=== PATIENT | male | born 1990 | race Caucasian/White ===

== ENCOUNTER 2020-07-22 14:36 | Emergency (ER) | payer SELFPAY ==
[2020-07-22 15:24] VITALS: BP 130/84; PULSE 113; RESP 14; TEMP 36.7; O2SAT 99; BMI 24.2
--- NOTE | 2020-07-22 15:34 | ED_ITS ---
HPI - Wound/Laceration General: Chief Complaint: Wound/Laceration Stated Complaint: laceration to finger on right hand Time Seen by Provider: 07/22/20 15:31 Source: patient Mode of arrival: ambulatory Limitations: no limitations History of Present Illness: HPI narrative: Patient was using a knife and cut the proximal dorsal phalanx of the fifth digit on the right hand. Patient comes in for care of the injury. Incident occurred just prior to arrival. Patient reports tetanus is up-to-date. Patient denies any problems. Review of Systems General: Reports: 10 or more systems reviewed and unremarkable except in HPI and below Skin/Breast: Reports: other (Laceration right middle finger.) Physical Exam Const: COMMON NORMALS: no acute distress and patient oriented x3 GENERAL APPEARANCE: cooperative HENMT: COMMON NORMALS: normocephalic and Normal external nose present HEAD & SCALP: normal to inspection and normocephalic NOSE: Normal external nose present Eye: GENERAL EYE: appearance normal, both eyes and all related structures Neck/C-Spine: COMMON NORMALS: full ROM Chest: COMMONS NORMALS: normal inspection of the chest Resp: COMMON NORMALS: normal respiratory effort EFFORT & INSPECTION: Yes able to speak in complete sentences Cardio: COMMON NORMALS: regular rate and regular rhythm RATE: regular rate RHYTHM: regular rhythm GI: COMMON NORMALS: non-tender Extremity: COMMON NORMALS: normal to inspection Neuro: COMMON NORMALS: patient oriented x3 and moves all extremities Psych: COMMON NORMALS: mental status grossly normal and cooperative Skin: NARRATIVE SKIN EXAM: 2 cm laceration to the proximal dorsal phalanx on the right hand of the fifth digit. Tendon function is normal. Distal cap refill is normal. Procedures Laceration Laceration 1: Site: hand Side (If applicable): right Size (cm): 2 Description: linear Depth: simple, single layer Local Anesthetic: lidocaine 1% Amount of anesthesia used (mL): 2 Pre-repair: wound explored Skin layer closed with: nylon Size (cm): 4-0 Number of sutures: 3 Technique: simple, interrupted and horizontal mattress Course Vital Signs: Vital signs: Vital Signs Temperature 98.0 F 07/22/20 15:24 Pulse Rate 113 H 07/22/20 15:24 Respiratory Rate 14 07/22/20 15:24 Blood Pressure 130/84 07/22/20 15:24 Pulse Oximetry 99 07/22/20 15:24 MDM - Wound/Laceration MDM Narrative: Medical decision making narrative: 30-year-old male patient comes in for injury to the right hand, he sustained a laceration to the proximal dorsal little finger. Patient has normal range of motion of the hand without any sign of tendon injury. Cap refill is normal sensation is normal. Differential diagnosis includes laceration, tendon injury, foreign body. No foreign body was noted in the wound, wound was closed with 3 stitches, patient tolerated procedure well. Reviewed post procedure care and need for follow-up or return. Patient reported understanding. Discharge Plan Discharge Patient Disposition: Home Clinical Impression: Finger laceration Qualifiers: Encounter type: initial encounter Finger: little finger Damage to nail status: without damage Foreign body presence: without foreign body Laterality: right Qualified Code(s): S61.216A - Laceration without foreign body of right little finger without damage to nail, initial encounter Condition: Stable Discharge Orders: Discharge ED (Routine); Ordered 07/22/20 Ordered By: Jay Caro Discharge Diet: Usual diet Discharge Activity: Increase activity as tolerated Patient Instructions: Suture Care (ED) Activity Restrictions/Additional Instructions: Keep wound clean and dry. Sutures out in 7 days. Activity as tolerated. Follow-up with primary care as needed. Return to the emergency department for new concerns. Coding Level of Care Code ED Lacquer Mixer for Maryan Wilson Exam Comprehensive
[2020-07-22] MEDS: lidocaine 1% INJ 20 mL INJECTION (16:02)
[2020-07-22 16:03] VITALS: BP 133/80; PULSE 106; RESP 14; O2SAT 97
== END 2020-07-22 16:03 | disposition home or self-care (01) ==
PROVIDERS: Emergency Provider Nurse Practitioner Family
DX: S61.216A Laceration without foreign body of right little finger without damage to nail, initial encounter (principal); W26.0XXA Contact with knife, initial encounter
CPT/HCPCS: 12001; 12345; 99281

== ENCOUNTER 2021-09-20 09:41 | Inpatient (IN) | payer MEDICAID, SELFPAY ==
[2021-09-20] VITALS (10 sets, daily range): BP systolic 110–155; BP diastolic 70–103; PULSE 88–108; RESP 15–20; TEMP 36.5–36.8; O2SAT 95–100; BMI 30.9
--- NOTE | 2021-09-20 09:56 | W.ED.ABDPA2 ---
HPI - Abdominal Pain General: Chief Complaint: Abdominal Pain Stated Complaint: abdominal pain, right side Time Seen by Provider: 09/20/21 09:44 Source: patient Mode of arrival: ambulatory Limitations: no limitations History of Present Illness: 31-year-old male presents emergency room complaining abdominal pain. About 5 to 7 days ago he had some blood in his urine he has right-sided abdominal pain radiating down into his groin and testicle became markedly worse overnight. Now is rating it 10 of 10 he is uncomfortable just lying in bed. He had spasmodic-like pain radiating into the groin. No previous abdominal surgeries he has had difficulty with voiding completely. No fever sweats or chills no recent trauma or fall. MD elicited complaint: abdominal pain Pertinent past history: kidney stones Onset (ago): week(s) Pain Consistency: intermittent and colicky Location: R flank Severity: severe Quality: stabbing Radiation: suprapubic and other (Right groin and testicle) Exacerbating factors: nothing Relieving factors: nothing Associated Symptoms: Reports chills, fever(s), hematuria and nausea; Denies anorexia, belching, bloating, change in bowel habits, change in stool character, coffee ground emesis, constipation, GI cramping, diarrhea, dyspepsia, dysuria, excessive flatus, heartburn, hematochezia, hematemesis, fecal incontinence, loose stools, melena, poor appetite, syncope and vomiting Review of Systems Const: Reports: fever(s), chills and body aches Card: Denies: syncope Resp: Denies: dyspnea, productive cough or non-productive cough GI: Reports: abdominal pain and nausea; Denies: vomiting, hematemesis, coffee ground emesis, heartburn, diarrhea, constipation, bloating, GI cramping, belching, excessive flatus, fecal incontinence, change in bowel habits, change in stool character, hematochezia or melena : Reports: flank pain, difficulty urinating, urinary frequency and hematuria; Denies: dysuria Skin/Breast: Denies: rash or pruritus PFS ED PFSH: Medical History Back pain Nephrolithiasis Surgical History No pertinent past surgical history Social History Smoking and tobacco status: current every day smoker Physical Exam Const: GENERAL APPEARANCE: cooperative and other (Severe right flank pain) ORIENTATION/CONSCIOUSNESS: Yes awake, Yes oriented to person, Yes oriented to place and Yes oriented to time HENMT: COMMON NORMALS: normocephalic, atraumatic and hearing grossly normal bilaterally HEAD & SCALP: normocephalic and atraumatic Neck/C-Spine: COMMON NORMALS: full ROM, no lymphadenopathy, supple and no JVD Lymph: LYMPHATIC: no lymphadenopathy noted and no lymphedema noted Resp: COMMON NORMALS: normal respiratory effort, No retractions, No use of accessory muscles and clear to auscultation bilaterally AUSCULTATION: clear to auscultation bilaterally Cardio: COMMON NORMALS: no JVD, regular rate, regular rhythm and No murmurs present (Cardio) RATE: regular rate RHYTHM: regular rhythm GI: COMMON NORMALS: Soft to palpation and No hepatosplenomegaly present AUSCULTATION: Yes normoactive bowel sounds PALPATION: Yes Soft to palpation, No Tenderness to palpation present (GI), No Guarding due to palpation present (GI) and Yes No hepatosplenomegaly present : BLADDER/KIDNEY EXAM: Yes CVA tenderness on the right Back/Pelvis: GENERAL BACK: Yes CVA tenderness Extremity: COMMON NORMALS: normal to inspection, capillary refill normal, no clubbing, cyanosis or edema, no calf tenderness and no pedal edema Neuro: SENSORIUM/ORIENTATION: Yes oriented to person, Yes oriented to place and Yes oriented to time Skin: COMMON NORMALS: no rashes or lesions noted GENERAL SKIN EXAM: no rashes or lesions noted Course Vital Signs: Vital signs: Vital Signs Temperature 98.3 F 09/20/21 09:53 Pulse Rate 88 09/20/21 11:28 Respiratory Rate 18 09/20/21 11:35 Blood Pressure 136/92 09/20/21 11:28 Pulse Oximetry 96 09/20/21 11:28 MDM - Abdominal Pain Medical Decision Making CT negative the patient is tachycardic with significantly elevated white count and evidence of cystitis given his clinical presentation I believe he has pyelonephritis is given IV fluids and significant amount of morphine to subside his pain. There is no evidence of obstruction. Regards admit the patient for IV fluids pain control and IV antibiotics discussed with patient discussed with hospitalist and orders are written Medical Records I reviewed the patient's medical records. Lab Data I reviewed the patient's lab results. : 09/20/21 10:25 09/20/21 10:51 Labs/Radiology: Radiology Impressions Abdomen/Pelvis CT 09/20/21 10:31 IMPRESSION: No acute findings. Laboratory Results WBC 19.8 10^3/uL (4.0-10.0) H 09/20/21 10:25 RBC 5.00 10^6/uL (4.1-5.3) 09/20/21 10:25 Hgb 15.5 g/dL (11.7-16.6) 09/20/21 10:25 Hct 46.2 % (42.0-52.0) 09/20/21 10:25 MCV 92.4 fl (80-94) 09/20/21 10:25 MCH 31.0 pg (28.0-34.0) 09/20/21 10:25 MCHC 33.5 g/dL (30.0-36.0) 09/20/21 10:25 RDW 12.6 % (12.1-15.1) 09/20/21 10:25 Plt Count 370 10^3/cmm (130-400) 09/20/21 10:25 MPV 8.9 fL (7.4-10.4) 09/20/21 10:25 Neut % (Auto) 79.0 % 09/20/21 10:25 Lymph % (Auto) 11.4 % 09/20/21 10:25 Pender % (Auto) 7.5 % 09/20/21 10:25 Eos % (Auto) 1.3 % 09/20/21 10:25 Baso % (Auto) 0.4 % 09/20/21 10:25 Neut # (Auto) 15.62 10^3/uL (1.8-7.7) H 09/20/21 10:25 Lymph # (Auto) 2.3 10^3/uL (0.8-4.8) 09/20/21 10:25 Pender # (Auto) 1.5 10^3/uL (0.2-0.9) H 09/20/21 10:25 Eos # (Auto) 0.3 10^3/uL (0.0-0.8) 09/20/21 10:25 Baso # (Auto) 0.1 10^3/uL (0.0-0.1) 09/20/21 10:25 Nucleated RBC % (auto) 0 % 09/20/21 10:25 Nucleated RBCs # 0.0 /100WBC 09/20/21 10:25 Sodium 132 mmol/L (136-145) L 09/20/21 10:51 Potassium 4.0 mmol/L (3.5-5.1) 09/20/21 10:51 Chloride 96 mmol/L (98-107) L 09/20/21 10:51 Carbon Dioxide 27 mmol/L (22-29) 09/20/21 10:51 Anion Gap 13.0 (5-19) 09/20/21 10:51 BUN 14 mg/dL (6-20) 09/20/21 10:51 Creatinine 1.0 mg/dL (0.7-1.2) 09/20/21 10:51 GFR Calculation 86.6 mL/min (90-130) L 09/20/21 10:51 Glucose 107 mg/dL (65-115) 09/20/21 10:51 Calculated Osmolality 275 mOsm/kg (285-295) L 09/20/21 10:51 Calcium 9.7 mg/dL (8.5-10.5) 09/20/21 10:51 Total Bilirubin 0.4 mg/dL (0.15-1.2) 09/20/21 10:51 AST 22 U/L (0-40) 09/20/21 10:51 ALT 45 U/L (0-41) H 09/20/21 10:51 Alkaline Phosphatase 233 IU/L (40-130) H 09/20/21 10:51 Total Protein 7.7 g/dL (6.6-8.7) 09/20/21 10:51 Albumin 4.7 g/dL (3.5-5.2) 09/20/21 10:51 Globulin 3.0 g/dL (1.3-4.6) 09/20/21 10:51 Lipase 22 U/L (13-60) 09/20/21 10:51 Urine Color Yellow (Yellow) 09/20/21 10:15 Urine Appearance Cloudy (CLEAR) 09/20/21 10:15 Urine pH 8 (5-7) H 09/20/21 10:15 Ur Specific [place] 1.015 (1.005-1.030) 09/20/21 10:15 Urine Protein Neg (Negative) 09/20/21 10:15 Urine Glucose (UA) Norm (Normal) 09/20/21 10:15 Urine Ketones Negative (Negative) 09/20/21 10:15 Urine Blood 3+ (Negative) H 09/20/21 10:15 Urine Nitrate Negative (Negative) 09/20/21 10:15 Urine Bilirubin Neg (Negative) 09/20/21 10:15 Urine Urobilinogen Norm mg/dL (Negative) 09/20/21 10:15 Ur Leukocyte Esterase 2+ (Negative) H 09/20/21 10:15 Urine RBC 10-15 /hpf (0-2) H 09/20/21 10:15 Urine WBC 40-55 /hpf (0-5) H 09/20/21 10:15 Ur Squamous Epith Cells None /hpf (0-5) 09/20/21 10:15 Amorphous Sediment Not Reportable 09/20/21 10:15 Urine Bacteria 2+ /hpf (NONE) H 09/20/21 10:15 Discharge Plan Discharge Clinical Impression: Acute pyelonephritis Condition: Stable Prescriptions: No Action No Known Home Medications 0RF Coding Level of Care Code ED Affirmative Action Specialist for Chg Fwd Exam Comprehensive
--- NOTE | 2021-09-20 10:31 | CTR_ITS ---
PROCEDURE INFORMATION: Exam: CT Abdomen And Pelvis Without Contrast Exam date and time: 09/20/2021 11:01 AM Age: 31 years old Clinical indication: Abdominal pain; Flank; Right; Additional info: Flank pain TECHNIQUE: Imaging protocol: Computed tomography of the abdomen and pelvis without contrast. Radiation optimization: All CT scans at this facility use at least one of these dose optimization techniques: automated exposure control; mA and/or kV adjustment per patient size (includes targeted exams where dose is matched to clinical indication); or iterative reconstruction. COMPARISON: CT abdomen pelvis w con* [id number] 03/06/2019 3:04 PM RADIATION DOSE METRICS: Total DLP (mGy-cm): 852.37 FINDINGS: Liver: Normal. No mass. Gallbladder and bile ducts: Normal. No calcified stones. No ductal dilation. Pancreas: Normal. No ductal dilation. Spleen: Normal. No splenomegaly. Adrenal glands: Normal. No mass. Kidneys and ureters: Normal. No hydronephrosis. Stomach and bowel: Unremarkable. No obstruction. No mucosal thickening. Appendix: No evidence of appendicitis. Intraperitoneal space: Unremarkable. No free air. No significant fluid collection. Arteries: Unremarkable. No abdominal aortic aneurysm. Lymph nodes: Unremarkable. No enlarged lymph nodes. Urinary bladder: Unremarkable as visualized. Reproductive: Unremarkable as visualized. Bones/joints: Unremarkable. No acute fracture. Soft tissues: Unremarkable. CT/CT kidney stone [id number] IMPRESSION: No acute findings.
[2021-09-20 10:33] LABS: Basophils # 0.1 10^3/uL (0.0-0.1); Basophils % 0.4 %; Eosinophils # 0.3 10^3/uL (0.0-0.8); Eosinophils % 1.3 %; Hematocrit 46.2 % (42.0-52.0); Hemoglobin 15.5 g/dL (11.7-16.6); Lymphocytes # 2.3 10^3/uL (0.8-4.8); Lymphocytes % 11.4 %; Mean Corpuscular HGB Conc 33.5 g/dL (30.0-36.0); Mean Corpuscular Volume 92.4 fl (80-94); Mean Platelet Volume 8.9 fL (7.4-10.4); Monocytes # 1.5 10^3/uL (0.2-0.9); Monocytes % 7.5 %; Neutrophils # 15.62 10^3/uL (1.8-7.7); Nucleated Red Blood Cells % 0 %; Platelet Count 370 10^3/cmm (130-400); Red Cell Distribution Width 12.6 % (12.1-15.1); White Blood Count 19.8 10^3/uL (4.0-10.0)
[2021-09-20 10:36] LABS: Protein Urine Neg (Negative); Specific Gravity, Urine 1.015 (1.005-1.030); Urine Appearance Cloudy (CLEAR); Urine Color Yellow (Yellow); pH Urine 8 (5-7)
[2021-09-20 10:37] LABS: Glucose Urine UA Norm (Normal); Ketones Urine Negative (Negative)
[2021-09-20] MEDS: morphine 4 mg/mL SDV 1 mL 8 MG IVP (10:37)
[2021-09-20] MEDS: ondansetron 2 mg/ML SDV 2 mL 4 MG IVP (10:38)
[2021-09-20 10:39] LABS: Add Urine Microscopic? YES; Bilirubin Urine Neg (Negative); Blood Urine 3+ (Negative); Leukocyte Esterase Urine 2+ (Negative); Nitrate Urine Negative (Negative); Urobilinogen Urine Norm (Negative); WBC Urine 40-55 /hpf (0-5)
[2021-09-20 10:40] LABS: Add Urine Culture? Yes; Bacteria Urine 2+ /hpf
[2021-09-20] MEDS: lactated ringers 1,000 ML 999 ML IV ×3 (10:50→12:53)
[2021-09-20 11:19] LABS: Alanine Aminotransferase 45 U/L (0-41); Albumin Level 4.7 g/dL (3.5-5.2); Alkaline Phosphatase 233 IU/L (40-130); Aspartate Amino Transferase 22 U/L (0-40); Blood Urea Nitrogen 14 mg/dL (6-20); Calcium 9.7 mg/dL (8.5-10.5); Carbon Dioxide 27 mmol/L (22-29); Chloride 96 mmol/L (98-107); Glomerular Filtration Rate 86.6 mL/min (90-130); Glucose 107 mg/dL (65-115); Lipase 22 U/L (13-60); Osmolality Calculated 275 mOsm/kg (285-295); Sodium 132 mmol/L (136-145); Total Bilirubin 0.4 mg/dL (0.15-1.2); Total Protein 7.7 g/dL (6.6-8.7)
[2021-09-20] MEDS: morphine 4 mg/mL SDV 1 mL IVP (11:35)
[2021-09-20] MEDS: cefTRIAXone 1,000 MG in sodium chloride 0.9% (plus) 50 ML 100 MG IV (11:37)
--- NOTE | 2021-09-20 11:44 | PC.NURSE ---
Warmed blanket & extra pillow for comfort. LR & abx infusing.
[2021-09-20 12:31] LABS: Lactic Sepsis W/Reflex 1.4 mmol/L (0.5-2.2)
--- NOTE | 2021-09-20 12:44 | PC.NURSE ---
Clarified 2nd rocephin order from Dr. Mora. He does not want 2nd dose, but wants rocephin to start tomorrow.
--- NOTE | 2021-09-20 12:49 | PM.HP ---
Providers/Chief Complaint Admitting Physician: Harpreet Mora DO Chief Complaint: abdominal pain, right side History of Present Illness Alden Urena is a 31 year old male who presented to the ER with complaints on hematuria, worsening abdominal pain. Symptoms started 2 weeks ago with burning while urinating and with erection. He did have one episode of hematuria a couple days ago. Abdominal pain worsened over the last few days. He does endorse one episode of urethral discharge. Has a history of renal stones, but denies seeing one pass during this episode. He denies concerns for STI's. Denies BATISTA, change in vision, fever, chills, N/V/D or rash. He denies other medical conditions and reports taking no medications. Denies allergies to foods or medications. He is current ppd smoker, and uses EtOH daily. He has a history of IVD use, but denies use for the last 8 months since attending rehab. Review of Systems General: Reports: 10 or more systems reviewed and unremarkable except in HPI and below Const: Reports: other (Denies recent illness. ); Denies: fever(s) or chills Eyes: Denies: change in vision or eye discharge ENMT: Denies: throat pain or oral sores Card: Denies: chest pain or palpitations Resp: Denies: dyspnea, productive cough, non-productive cough or wheezing GI: Reports: abdominal pain and nausea; Denies: vomiting, diarrhea or constipation : Reports: dysuria and hematuria; Denies: urinary frequency Musc: Denies: joint pain or joint swelling Skin/Breast: Denies: rash or sores Neuro: Denies: headache(s), weakness in extremities or sensory changes Psych: Denies: anxiety or depression Endo: Denies: polyuria or polydipsia Axel/Lymph: Denies: easy bruising Medications/Allergies Home Medications Medication Instructions Recorded Confirmed Last Taken Type No Known Home Medications 09/20/21 09/20/21 Unknown History Allergies Allergy/AdvReac Type Severity Reaction Status Date / Time No Known Allergies Allergy Verified 03/25/21 13:52 PFSH Acute PFSH: Medical History Back pain Nephrolithiasis Surgical History No pertinent past surgical history Social History Smoking and tobacco status: current every day smoker Vitals/I&O/Wt Last Vital Signs Temp 98.3 F 09/20/21 09:53 Pulse 88 09/20/21 12:12 Resp 18 09/20/21 12:12 BP 145/103 09/20/21 12:12 Pulse Ox 95 09/20/21 12:12 Weight last 48 hrs Weight 180 lb Physical Exam Narrative: General: Cooperative patient in no apparent distress. Appears slightly lethargic. HEENT: Normocephalic, Atraumatic. External ears normal. Nasal passages patent without drainage. MMM. Neck is supple, non-tender. No LA palpated. Resp: LCTA. No respiratory distress, no use of accessory muscles. No wheezes, rales or rhonchi. Abd: Non-tender, Non-distended with normal bowel sounds. R-CVA tenderness noted. Extremities: No edema. MSK: Normal ROM in BUE's/LE's. Neuro: Alert and oriented x 3. CN II-XII grossly intact. No focal motor or sensory disturbances. Skin: No rash or lesions on exposed areas. Data : 09/20/21 10:25 09/20/21 10:51 Micro: Microbiology 09/20/21 12:05 Blood Culture - Preliminary Blood SPECIMEN COLLECTED A&P Assessment and plan (1) Acute pyelonephritis: Acute. - Admit to Med/Surg. - Leukocytosis of 19,000, UA positive for infection, CVA tenderness. Lactate normal. - CT negative for nephrolithiasis or hydronephrosis. - Received IVF bolus x 1. Continue IVF at 100/hr. - Rocephin x 1 dose in ER. Will continue daily. Can de-escalate/specify therapies when culture results available. - BCx, UCx pending. GCC to be obtained from this morning's urine collection. - IV, Oral pain meds. - q4 vitals. Up ad warren activity. - Regular diet. Status: Acute (2) Leukocytosis: Acute. - Due to acute infection. - Will repeat CBC in a.m. Status: Acute (3) Acute hyponatremia: Status: Acute (4) Hypochloremia: Acute. - Continue NS IVF's at this time. - Recheck labs in a.m. Status: Acute (5) Elevated LFTs: Acute. - Infection vs. Daily EtOH intake. - He denies ever having withdrawals. - Will monitor for signs of withdrawal and can add protocol as needed. Status: Acute (6) Nephrolithiasis: Chronic. - CT negative today for stone. - Will monitor for now. Can consult Urology if indicated. Status: Acute (7) Nicotine dependence, cigarettes, with unspecified nicotine-induced disorders: Chronic. - Discussion was held regarding the risks of tobacco use and the benefits of stopping. Therapies including nicotine replacement, counseling and medications were presented. - Can provide NRT if needed. Status: Acute Attestations Medical Necessity Statement*: Pateint expected to require at least 2 midnight stay for treatment of acute pyelonephritis and hyponatremia. Time Spent in Patient Care: 16 - 35 minutes (>than 50% of time spent in counselling and/or direct pt care on unit). Coding Level of Care Code Acute Audio Visual Equipment Rental Clerk for Maryan Wilson Diagnoses Acute pyelonephritis N10 Acute hyponatremia E87.1 Hypochloremia E87.8 Elevated LFTs R79.89 Leukocytosis D72.829 Nephrolithiasis N20.0 Nicotine dependence, cigarettes, with unspecified nicotine-induced disorders F17.219
[2021-09-20] MEDS: D5-NS 0.45% + KCL 20 mEq 20 MEQ/1,000 ML BAG 150 MEQ IV ×2 (14:13→21:05)
[2021-09-20] MEDS: HYDROcodone-acetaminophen 5-325 mg Tablet 1 TAB PO (19:27)
--- NOTE | 2021-09-20 19:43 | PC.NURSE ---
PATIENT REPORTED NEW ONSET OF SWELLING OF RIGHT TESTICLE. HOSPITALIST DR. BYRNE NOTIFIED AND ORDERED WARM COMPRESS BE APPLIED, AND SCROTAL ULTRASOUND WITH DOPPLER BE DONE.
--- NOTE | 2021-09-20 19:51 | USR_ITS ---
PROCEDURE INFORMATION: Exam: US Scrotum and Artery or Vein of the Abdominal and/or Reproductive Organs, Limited Scrotum Exam date and time: 09/20/2021 8:05 PM Age: 31 years old Clinical indication: Swelling, testicles or scrotum; Scrotum pain; Additional info: Right testicle swelling, with doppler TECHNIQUE: Imaging protocol: Real-time ultrasound of the scrotum. Real-time duplex ultrasound scan of the arterial or venous flow with monahan scale, color Doppler flow and spectral waveform analysis with image documentation. Limited Duplex exam focused of the scrotum. Duplex images required to evaluate for torsion and other vascular conditions. COMPARISON: 1. US Testicular [id number] 10/02/2016 4:[address] kidney stone [id number] 09/20/2021 11:01 AM FINDINGS: Right testicle: Right testicle measures 4.5 x 3.3 x 3.4 cm. Left testicle: Left testicle measures 4.8 x 2.5 x 3.2 cm. Epididymides: Mild right epididymal enlargement which appears slightly heterogeneous suggesting mild acute epididymitis. There is a left epididymal cyst measuring 7 x 5 mm. Scrotum: No Valsalva images were obtained however no large scrotal varicoceles are present. Other findings: There is symmetric intratesticular parenchymal flow demonstrating normal spectral waveforms. No evidence of ischemia or torsion. No intratesticular mass. No obvious skin thickening or discrete soft tissue abscess. US/US scrotum [id number] IMPRESSION: 1. Probable mild right epididymitis. 2. Otherwise unremarkable exam.
[2021-09-21] MEDS: HYDROcodone-acetaminophen 5-325 mg Tablet 1 TAB PO ×2 (01:16→08:39)
[2021-09-21] MEDS: D5-NS 0.45% + KCL 20 mEq 20 MEQ/1,000 ML BAG 150 MEQ IV (03:33)
[2021-09-21 03:48] VITALS: BP 96/64; PULSE 96; RESP 16; TEMP 36.7; O2SAT 95
[2021-09-21 04:53] LABS: Basophils # 0.1 10^3/uL (0.0-0.1); Basophils % 0.5 %; Eosinophils # 0.4 10^3/uL (0.0-0.8); Eosinophils % 1.7 %; Hematocrit 43.9 % (42.0-52.0); Hemoglobin 14.8 g/dL (11.7-16.6); Lymphocytes # 2.9 10^3/uL (0.8-4.8); Lymphocytes % 13.2 %; Mean Corpuscular HGB Conc 33.7 g/dL (30.0-36.0); Mean Corpuscular Hemoglobin 31.6 pg (28.0-34.0); Mean Corpuscular Volume 93.6 fl (80-94); Mean Platelet Volume 8.6 fL (7.4-10.4); Monocytes # 1.8 10^3/uL (0.2-0.9); Monocytes % 8.5 %; Neutrophils # 16.36 10^3/uL (1.8-7.7); Neutrophils % 75.6 %; Nucleated Red Blood Cells % 0 %; Platelet Count 302 10^3/cmm (130-400); Red Blood Count 4.69 10^6/uL (4.1-5.3); Red Cell Distribution Width 12.4 % (12.1-15.1); White Blood Count 21.6 10^3/uL (4.0-10.0)
[2021-09-21 05:12] LABS: Alanine Aminotransferase 26 U/L (0-41); Albumin Level 3.6 g/dL (3.5-5.2); Alkaline Phosphatase 187 IU/L (40-130); Anion Gap 13.5 (5-19); Aspartate Amino Transferase 15 U/L (0-40); Blood Urea Nitrogen 8 mg/dL (6-20); Calcium 8.8 mg/dL (8.5-10.5); Carbon Dioxide 23 mmol/L (22-29); Chloride 102 mmol/L (98-107); Globulin 2.9 g/dL (1.3-4.6); Glomerular Filtration Rate 97.8 mL/min (90-130); Glucose 138 mg/dL (65-115); Osmolality Calculated 279 mOsm/kg (285-295); Potassium 4.5 mmol/L (3.5-5.1); Sodium 134 mmol/L (136-145); Total Bilirubin 0.4 mg/dL (0.15-1.2); Total Protein 6.5 g/dL (6.6-8.7)
--- NOTE | 2021-09-21 06:16 | PC.NURSE ---
PATIENT DENIES PAIN AT THIS TIME, RESTING IN BED, ENCOURAGED PATIENT TO GET UP TO CHAIR FOR BREAKFAST. PATIENT DECLINED AT THIS TIME.
[2021-09-21] MEDS: pantoprazole DR 40 mg Tablet PO (07:59)
[2021-09-21 08:00] VITALS: BP 108/72; PULSE 98; RESP 14; O2SAT 97
[2021-09-21] MEDS: doxycycline 100 MG in sodium chloride 0.9% (plus) 100 ML IV (08:37)
[2021-09-21 10:39] VITALS: BP 108/72; PULSE 98; RESP 14; O2SAT 97
--- NOTE | 2021-09-21 11:16 | PM.DCS ---
Discharge Providers Date of Admission: 09/20/21 11:41 Date of Discharge: September 21, 2021 Attending Provider at Admission: Harpreet Mora DO Attending Provider at Discharge: Harpreet Mora DO Primary Care Provider: Is not established. Diagnoses at Discharge Discharge Diagnosis (1) Acute pyelonephritis: Status: Acute (2) Leukocytosis: Status: Acute (3) Acute hyponatremia: Status: Acute (4) Hypochloremia: Status: Acute (5) Elevated LFTs: Status: Acute (6) Nephrolithiasis: Status: Acute (7) Nicotine dependence, cigarettes, with unspecified nicotine-induced disorders: Status: Acute Reason for Visit Reason for Visit: abdominal pain, right side Discharge Data Studies Completed and Pending Completed Studies During Hospitalization Category Date Time Status CT kidney stone [id number] Stat Cat Scan 09/20/21 10:31 Completed US scrotum [id number] Urgent Ultrasound 09/20/21 19:51 Completed Pending at discharge Category Date Time Status Blood Culture Stat Lab 09/20/21 14:15 Results Urine Culture Stat Lab 09/20/21 10:15 Results Radiology Impressions Abdomen/Pelvis CT 09/20/21 10:31 IMPRESSION: No acute findings. Scrotum Ultrasound 09/20/21 19:51 IMPRESSION: 1. Probable mild right epididymitis. 2. Otherwise unremarkable exam. Laboratory Results WBC 21.6 10^3/uL (4.0-10.0) H 09/21/21 04:40 RBC 4.69 10^6/uL (4.1-5.3) 09/21/21 04:40 Hgb 14.8 g/dL (11.7-16.6) 09/21/21 04:40 Hct 43.9 % (42.0-52.0) 09/21/21 04:40 MCV 93.6 fl (80-94) 09/21/21 04:40 MCH 31.6 pg (28.0-34.0) 09/21/21 04:40 MCHC 33.7 g/dL (30.0-36.0) 09/21/21 04:40 RDW 12.4 % (12.1-15.1) 09/21/21 04:40 Plt Count 302 10^3/cmm (130-400) 09/21/21 04:40 MPV 8.6 fL (7.4-10.4) 09/21/21 04:40 Neut % (Auto) 75.6 % 09/21/21 04:40 Lymph % (Auto) 13.2 % 09/21/21 04:40 [place] % (Auto) 8.5 % 09/21/21 04:40 Eos % (Auto) 1.7 % 09/21/21 04:40 Baso % (Auto) 0.5 % 09/21/21 04:40 Neut # (Auto) 16.36 10^3/uL (1.8-7.7) H 09/21/21 04:40 Lymph # (Auto) 2.9 10^3/uL (0.8-4.8) 09/21/21 04:40 [place] # (Auto) 1.8 10^3/uL (0.2-0.9) H 09/21/21 04:40 Eos # (Auto) 0.4 10^3/uL (0.0-0.8) 09/21/21 04:40 Baso # (Auto) 0.1 10^3/uL (0.0-0.1) 09/21/21 04:40 Nucleated RBC % (auto) 0 % 09/21/21 04:40 Nucleated RBCs # 0.0 /100WBC 09/21/21 04:40 Sodium 134 mmol/L (136-145) L 09/21/21 04:40 Potassium 4.5 mmol/L (3.5-5.1) 09/21/21 04:40 Chloride 102 mmol/L (98-107) 09/21/21 04:40 Carbon Dioxide 23 mmol/L (22-29) 09/21/21 04:40 Anion Gap 13.5 (5-19) 09/21/21 04:40 BUN 8 mg/dL (6-20) 09/21/21 04:40 Creatinine 0.9 mg/dL (0.7-1.2) 09/21/21 04:40 GFR Calculation 97.8 mL/min (90-130) 09/21/21 04:40 Glucose 138 mg/dL (65-115) H 09/21/21 04:40 Calculated Osmolality 279 mOsm/kg (285-295) L 09/21/21 04:40 Lactic Acid 1.4 mmol/L (0.5-2.2) 09/20/21 12:05 Calcium 8.8 mg/dL (8.5-10.5) 09/21/21 04:40 Total Bilirubin 0.4 mg/dL (0.15-1.2) 09/21/21 04:40 AST 15 U/L (0-40) 09/21/21 04:40 ALT 26 U/L (0-41) 09/21/21 04:40 Alkaline Phosphatase 187 IU/L (40-130) H 09/21/21 04:40 Total Protein 6.5 g/dL (6.6-8.7) L 09/21/21 04:40 Albumin 3.6 g/dL (3.5-5.2) 09/21/21 04:40 Globulin 2.9 g/dL (1.3-4.6) 09/21/21 04:40 Lipase 22 U/L (13-60) 09/20/21 10:51 Urine Color Yellow (Yellow) 09/20/21 10:15 Urine Appearance Cloudy (CLEAR) 09/20/21 10:15 Urine pH 8 (5-7) H 09/20/21 10:15 Ur Specific [place] 1.015 (1.005-1.030) 09/20/21 10:15 Urine Protein Neg (Negative) 09/20/21 10:15 Urine Glucose (UA) Norm (Normal) 09/20/21 10:15 Urine Ketones Negative (Negative) 09/20/21 10:15 Urine Blood 3+ (Negative) H 09/20/21 10:15 Urine Nitrate Negative (Negative) 09/20/21 10:15 Urine Bilirubin Neg (Negative) 09/20/21 10:15 Urine Urobilinogen Norm mg/dL (Negative) 09/20/21 10:15 Ur Leukocyte Esterase 2+ (Negative) H 09/20/21 10:15 Urine RBC 10-15 /hpf (0-2) H 09/20/21 10:15 Urine WBC 40-55 /hpf (0-5) H 09/20/21 10:15 Ur Squamous Epith Cells None /hpf (0-5) 09/20/21 10:15 Amorphous Sediment Not Reportable 09/20/21 10:15 Urine Bacteria 2+ /hpf (NONE) H 09/20/21 10:15 Vitals Last Vital Signs Temp 98.1 F 09/21/21 03:48 Pulse 98 09/21/21 10:39 Resp 14 09/21/21 10:39 BP 108/72 09/21/21 10:39 Pulse Ox 97 09/21/21 10:39 Discharge Plan Discharge Patient Disposition: Home Condition: Stable Prescriptions: No Action No Known Home Medications 0RF Discharge Orders: Discharge Order (Routine); Ordered 09/21/21 Ordered By: Harpreet Mora Referrals: Harpreet Mora, DO [Physician] - Discharge Diet: Usual diet Discharge Activity: Resume usual activity Patient Instructions: Opioid Safety Coding Level of Care Code Acute Chg FW DC note Diagnoses Acute pyelonephritis N10 Leukocytosis D72.829 Acute hyponatremia E87.1 Hypochloremia E87.8 Elevated LFTs R79.89 Nephrolithiasis N20.0 Nicotine dependence, cigarettes, with unspecified nicotine-induced disorders F17.219
--- NOTE | 2021-09-21 11:17 | PM.PN ---
Subjective Subjective: 31 y/o M admitted with dysuria, flank pain and urethral discharge. Reports that he is feeling some better today. He did have some scrotal swelling overnight that caused him increased discomfort. US was performed. He denies fever, chills, flank or abd pain today. Has been eating and drinking and was able to urinate without pain. He denies further episodes of urethral discharge. Medications: Reviewed: Yes Vitals/I&O/Wt Last Vital Signs Temp 98.1 F 09/21/21 03:48 Pulse 98 09/21/21 10:39 Resp 14 09/21/21 10:39 BP 108/72 09/21/21 10:39 Pulse Ox 97 09/21/21 10:39 09/20/21 09/21/21 09/21/21 22:59 06:59 14:59 Intake Total 1000 / 4050 1210 / 5260 1100 / 1100 Output Total 700 / 700 Balance 1000 / 4050 510 / 4560 1100 / 1100 Weight last 48 hrs Weight 180 lb Physical Exam Narrative: General: Cooperative patient in no apparent distress. HEENT: Normocephalic, Atraumatic. External ears normal. Nasal passages patent without drainage. MMM. Neck is supple, non-tender. No LA palpated. Resp: LCTA. No respiratory distress, no use of accessory muscles. No wheezes, rales or rhonchi. Abd: Non-tender, Non-distended with normal bowel sounds. No CVA tenderness noted. Extremities: No edema. MSK: Normal ROM in BUE's/LE's. Neuro: Alert and oriented x 3. CN II-XII grossly intact. No focal motor or sensory disturbances. Skin: No rash or lesions on exposed areas. Data : 09/21/21 04:40 09/21/21 04:40 Micro: Microbiology 09/20/21 19:30 Chlamydia trachomatis ([facility]) - Final Urine Random Neisseria gonorrhoeae ([facility]) - Final 09/20/21 10:15 Urine Culture - Preliminary Urine,Clean Catch 09/20/21 14:15 Blood Culture - Preliminary Blood SPECIMEN COLLECTED 09/20/21 12:05 Blood Culture - Preliminary Blood SPECIMEN COLLECTED A&P Assessment and plan (1) Gonococcal infection (acute) of lower genitourinary tract: Acute. - Labs positive for Gonorrhea. Negative chlamydia. - Has received Ceftriaxone x 2 doses while inpatient. - US demonstrates epididymitis without abscess or other abnormality. - Requesting discharge home today as he is feeling better, eating and drinking well and able to urinate without problem. - Discussed with patient that his partner will need to be treated as well. He voiced understanding at this time. - Will discharge today with plan to follow up in clinic this week. Recommended that he establish with myself or other PCP to recheck labs, and consider further treatment if indicated. Patient states that he will call to make appointment later this week. Status: Acute (2) Epididymitis: Acute. - Gonorrhea positive. - Received Ceftriaxone x 2 while inpatient. - Recommend partner seek treatment and avoid further sexual activity until recheck is negative. - Follow up with PCP in one week. Status: Acute (3) Nicotine dependence, cigarettes, with unspecified nicotine-induced disorders: Discussion was held regarding the risks of tobacco use and the benefits of stopping. Therapies including nicotine replacement, counseling and medications were presented. Status: Acute (4) Leukocytosis: Acute. - Remains elevated in hospital. Is on appropriate treatment at this time. - Establish with PCP and have rechecked this week. Status: Acute (5) Elevated LFTs: Acute. - Resolved. - May be due to EtOH use or acute infection. - LFT's improved at discharge. Status: Acute (6) Acute hyponatremia: Acute. resolved. - Na improved to near normal levels at discharge. - Would advise recheck in PCP office in one week. Status: Acute (7) Acute pyelonephritis: Acute. - Improved. Infection likely due to Gonorrhea. - CT was negative for stone. - Received Ceftriaxone x 2. - Will continue to monitor for blood and urine cultures. - Follow up with PCP in 1-3 days. Status: Acute Attestations Medical Necessity Statement*: Pateint expected to require at least 2 midnight stay for treatment of acute pyelonephritis and hyponatremia. Time Spent in Patient Care: 16 - 35 minutes (>than 50% of time spent in counselling and/or direct pt care on unit). Coding Level of Care Code Acute [facility] for Maryan Wilson Diagnoses Gonococcal infection (acute) of lower genitourinary tract A54.00 Epididymitis N45.1 Nicotine dependence, cigarettes, with unspecified nicotine-induced disorders F17.219 Leukocytosis D72.829 Elevated LFTs R79.89 Acute hyponatremia E87.1 Acute pyelonephritis N10
--- NOTE | 2021-09-21 11:29 | PM.DCS ---
Discharge Providers Date of Admission: 09/20/21 11:41 Date of Discharge: September 21, 2021 Attending Provider at Admission: Harpreet Mora DO Attending Provider at Discharge: Harpreet Mora DO Diagnoses at Discharge Discharge Diagnosis (1) Gonococcal infection (acute) of lower genitourinary tract: Status: Acute (2) Epididymitis: Status: Acute (3) Nicotine dependence, cigarettes, with unspecified nicotine-induced disorders: Status: Acute (4) Leukocytosis: Status: Acute (5) Elevated LFTs: Status: Acute (6) Acute hyponatremia: Status: Acute (7) Acute pyelonephritis: Status: Acute Reason for Visit Reason for Visit: abdominal pain, right side Hospital Course Hospital Course Alden Urena is a 31 year old male who presented to the ER with complaints on hematuria, worsening abdominal pain.? Symptoms started 2 weeks ago with burning while urinating and with erection.?Reported one episode of hematuria a few days ago. Admitted after worsening abdominal pain. UA was consistent with acute infection. CT was negative for nephrolithiasis. He was started on Ceftriaxone in ED. GCC testing, urine, blood cultures were all obtained. Was noted to be slightly hyponatremic/hypocholremic and was started on IVF's. LFT's were mildly elevated and improved through hospital course. Vitals remained stable during the observation period. Reported one episode of scrotal tenderness and swelling. US ordered and demonstrated epididymitis with no other findings. Urine did return positive for gonorrhea. Received Ceftriaxone x 2 doses while inpatient. Chlamydia testing was negative. He did improve without treatment and requested discharge to home on day 2 of stay. Was recommended that he establish with a PCP and have repeat testing for cure. Recommend monitoring to ensure that cultures remain negative. Physical Exam Narrative: General: Cooperative patient in no apparent distress. HEENT: Normocephalic, Atraumatic. External ears normal. Nasal passages patent without drainage. MMM. Neck is supple, non-tender. No LA palpated. Resp: LCTA. No respiratory distress, no use of accessory muscles. No wheezes, rales or rhonchi. Abd: Non-tender, Non-distended with normal bowel sounds. No CVA tenderness noted. Extremities: No edema. MSK: Normal ROM in BUE's/LE's. Neuro: Alert and oriented x 3. CN II-XII grossly intact. No focal motor or sensory disturbances. Skin: No rash or lesions on exposed areas. Discharge Data Studies Completed and Pending Completed Studies During Hospitalization Category Date Time Status CT kidney stone [id number] Stat Cat Scan 09/20/21 10:31 Completed US scrotum [id number] Urgent Ultrasound 09/20/21 19:51 Completed Pending at discharge Category Date Time Status Blood Culture Stat Lab 09/20/21 14:15 Results Urine Culture Stat Lab 09/20/21 10:15 Results Radiology Impressions Abdomen/Pelvis CT 09/20/21 10:31 IMPRESSION: No acute findings. Scrotum Ultrasound 09/20/21 19:51 IMPRESSION: 1. Probable mild right epididymitis. 2. Otherwise unremarkable exam. Laboratory Results WBC 21.6 10^3/uL (4.0-10.0) H 09/21/21 04:40 RBC 4.69 10^6/uL (4.1-5.3) 09/21/21 04:40 Hgb 14.8 g/dL (11.7-16.6) 09/21/21 04:40 Hct 43.9 % (42.0-52.0) 09/21/21 04:40 MCV 93.6 fl (80-94) 09/21/21 04:40 MCH 31.6 pg (28.0-34.0) 09/21/21 04:40 MCHC 33.7 g/dL (30.0-36.0) 09/21/21 04:40 RDW 12.4 % (12.1-15.1) 09/21/21 04:40 Plt Count 302 10^3/cmm (130-400) 09/21/21 04:40 MPV 8.6 fL (7.4-10.4) 09/21/21 04:40 Neut % (Auto) 75.6 % 09/21/21 04:40 Lymph % (Auto) 13.2 % 09/21/21 04:40 [place] % (Auto) 8.5 % 09/21/21 04:40 Eos % (Auto) 1.7 % 09/21/21 04:40 Baso % (Auto) 0.5 % 09/21/21 04:40 Neut # (Auto) 16.36 10^3/uL (1.8-7.7) H 09/21/21 04:40 Lymph # (Auto) 2.9 10^3/uL (0.8-4.8) 09/21/21 04:40 [place] # (Auto) 1.8 10^3/uL (0.2-0.9) H 09/21/21 04:40 Eos # (Auto) 0.4 10^3/uL (0.0-0.8) 09/21/21 04:40 Baso # (Auto) 0.1 10^3/uL (0.0-0.1) 09/21/21 04:40 Nucleated RBC % (auto) 0 % 09/21/21 04:40 Nucleated RBCs # 0.0 /100WBC 09/21/21 04:40 Sodium 134 mmol/L (136-145) L 09/21/21 04:40 Potassium 4.5 mmol/L (3.5-5.1) 09/21/21 04:40 Chloride 102 mmol/L (98-107) 09/21/21 04:40 Carbon Dioxide 23 mmol/L (22-29) 09/21/21 04:40 Anion Gap 13.5 (5-19) 09/21/21 04:40 BUN 8 mg/dL (6-20) 09/21/21 04:40 Creatinine 0.9 mg/dL (0.7-1.2) 09/21/21 04:40 GFR Calculation 97.8 mL/min (90-130) 09/21/21 04:40 Glucose 138 mg/dL (65-115) H 09/21/21 04:40 Calculated Osmolality 279 mOsm/kg (285-295) L 09/21/21 04:40 Lactic Acid 1.4 mmol/L (0.5-2.2) 09/20/21 12:05 Calcium 8.8 mg/dL (8.5-10.5) 09/21/21 04:40 Total Bilirubin 0.4 mg/dL (0.15-1.2) 09/21/21 04:40 AST 15 U/L (0-40) 09/21/21 04:40 ALT 26 U/L (0-41) 09/21/21 04:40 Alkaline Phosphatase 187 IU/L (40-130) H 09/21/21 04:40 Total Protein 6.5 g/dL (6.6-8.7) L 09/21/21 04:40 Albumin 3.6 g/dL (3.5-5.2) 09/21/21 04:40 Globulin 2.9 g/dL (1.3-4.6) 09/21/21 04:40 Lipase 22 U/L (13-60) 09/20/21 10:51 Urine Color Yellow (Yellow) 09/20/21 10:15 Urine Appearance Cloudy (CLEAR) 09/20/21 10:15 Urine pH 8 (5-7) H 09/20/21 10:15 Ur Specific [place] 1.015 (1.005-1.030) 09/20/21 10:15 Urine Protein Neg (Negative) 09/20/21 10:15 Urine Glucose (UA) Norm (Normal) 09/20/21 10:15 Urine Ketones Negative (Negative) 09/20/21 10:15 Urine Blood 3+ (Negative) H 09/20/21 10:15 Urine Nitrate Negative (Negative) 09/20/21 10:15 Urine Bilirubin Neg (Negative) 09/20/21 10:15 Urine Urobilinogen Norm mg/dL (Negative) 09/20/21 10:15 Ur Leukocyte Esterase 2+ (Negative) H 09/20/21 10:15 Urine RBC 10-15 /hpf (0-2) H 09/20/21 10:15 Urine WBC 40-55 /hpf (0-5) H 09/20/21 10:15 Ur Squamous Epith Cells None /hpf (0-5) 09/20/21 10:15 Amorphous Sediment Not Reportable 09/20/21 10:15 Urine Bacteria 2+ /hpf (NONE) H 09/20/21 10:15 Vitals Last Vital Signs Temp 98.1 F 09/21/21 03:48 Pulse 98 09/21/21 10:39 Resp 14 09/21/21 10:39 BP 108/72 09/21/21 10:39 Pulse Ox 97 09/21/21 10:39 Discharge Plan Discharge Patient Disposition: Home Condition: Stable Prescriptions: No Action No Known Home Medications 0RF Discharge Orders: Discharge Order (Routine); Ordered 09/21/21 Ordered By: Harpreet Mora Referrals: Harpreet Mora, DO [Physician] - Discharge Diet: Usual diet Discharge Activity: Resume usual activity Patient Instructions: Opioid Safety Discharge Attestations Time Spent in Discharge Care*: greater than 30 min Specific Discharge Activities: educating patient, educating and/or supporting family/caregiver, documenting/other paperwork and evaluating patient/reviewing data Time Spent in Smoking Cessation: 3 to 10 minutes Quality Metrics Clinical Quality Measures [ No reported AMI, CVA or VTE this stay] Coding Level of Care Code Acute g [facility] note Diagnoses Gonococcal infection (acute) of lower genitourinary tract A54.00 Epididymitis N45.1 Nicotine dependence, cigarettes, with unspecified nicotine-induced disorders F17.219 Leukocytosis D72.829 Elevated LFTs R79.89 Acute hyponatremia E87.1 Acute pyelonephritis N10
== END 2021-09-21 10:55 | disposition home or self-care (01) | DRG 728 ==
LOC: ER 12:03 → MEDSURG 12:48
PROVIDERS: Admitting Provider Family Medicine; Emergency Provider Family Medicine; Visit Provider Family Medicine
DX: A54.23 Gonococcal infection of other male genital organs (principal); N10 Acute pyelonephritis; E87.1 Hypo-osmolality and hyponatremia; F17.210 Nicotine dependence, cigarettes, uncomplicated; Z87.442 Personal history of urinary calculi
CPT/HCPCS: 36415; 74176; 76870; 80053; 81001; 83605; 83690; 85025; 87040; 87086; 87491; 87591; 96365; 96375; 96376; 99285; J0696; J2270; J2405; J3490; J7120

== ENCOUNTER 2021-09-22 13:29 | Emergency (ER) | payer MEDICAID, SELFPAY ==
[2021-09-22 13:50] VITALS: BP 121/76; PULSE 110; RESP 18; TEMP 36.6; O2SAT 97; BMI 29.7
--- NOTE | 2021-09-22 13:58 | US_ITS ---
WS: [id number] TESTICULAR ULTRASOUND HISTORY: scrotal swelling COMPARISON: 09/20/2021 TECHNIQUE: Real-time and color Doppler imaging or utilized to perform a testicular ultrasound. Right testicle: 4.2 cm x 3.3 cm x 2.9 cm. Testicle is normal size and echogenicity. Color Doppler is demonstrated throughout the RIGHT testicle with mild increased in intensity. Systoli c and diastolic velocities are noted. No significant hydrocele. Right epididymis: There is marked thickening and heterogeneity throughout the epididymis. This has pr ogressed since the prior study. There is variable echogenicity with increased vascularity. There is d iffuse progressive scrotal wall thickening and edema. The most significant findings are along the inf erior epididymis. Left testicle: 5.3 cm x 2.9 cm x 3.1 cm. Normal size and echogenicity. No mass or torsion. Normal color Doppler is present throughout. Systolic and diastolic velocities are both present. No significant hydrocele. Left epididymis: Normal epididymis with no increased vascularity. Diffuse scrotal wall thickening on the LEFT. US/US scrotum [id number] IMPRESSION: 1. Progression in severe acute RIGHT epididymitis since the prior study along with mild RIGHT orchitis. 2. Diffuse progressive scrotal wall thickening and edema since the prior study . 3. No torsion.
--- NOTE | 2021-09-22 14:07 | ED_ITS ---
HPI - General Adult General: Chief complaint: Urogenital-Male Stated complaint: right abdominal pain Time Seen by Provider: 09/22/21 13:58 History of Present Illness: Patient is a 32-year-old male with a history of gonorrhea who presents the emergency room for complaints of right-sided testicular swelling and pain. Three days ago, patient was diagnosed with gonorrhea after a swab from penile discharge and was admitted for pain. Since then, patient has had significant right testicular swelling and pain since yesterday. Patient denies any fever chills abdominal pain, nausea/vomiting. Since three days ago, patient received antibiotics but has not received any antibiotics. Patient currently denies any testicular discharge since his evaluation 3 days prior. Onset:1 day of testicular pain and swelling Duration:ongoing Location:home Severity:moderate Associated symptoms: Deny chest pain, dyspnea, nausea, rash, palpitations or vomiting Review of Systems Const: Denies: fever(s) or chills Eyes: Denies: change in vision ENMT: Denies: mouth pain Card: Denies: chest pain or palpitations Resp: Denies: dyspnea or non-productive cough GI: Denies: abdominal pain, nausea, vomiting or diarrhea : Reports: other (+R sided testicular swelling and pain); Denies: dysuria Musc: Denies: extremity pain Skin/Breast: Denies: rash or new lesions Neuro: Denies: weakness in extremities Psych: Reports: other (Normal mood) Axel/Lymph: Denies: easy bruising PFS ED PFSH: Medical History Back pain Nephrolithiasis Surgical History No pertinent past surgical history Social History Smoking and tobacco status: never smoked Physical Exam Const: COMMON NORMALS: alert HENMT: COMMON NORMALS: atraumatic HEAD & SCALP: atraumatic MOUTH: moist mucous membranes not abnormal Eye: COMMON NORMALS: EOMs intact bilaterally and conjunctivae normal CONJUNCTIVA: Yes conjunctivae normal Neck/C-Spine: COMMON NORMALS: full ROM and supple Resp: COMMON NORMALS: normal respiratory effort and clear to auscultation bilaterally AUSCULTATION: clear to auscultation bilaterally Cardio: RATE: tachycardic GI: COMMON NORMALS: Soft to palpation and non-tender PALPATION: Yes Soft to palpation : OTHER: + Right-sided testicular swelling and tenderness palpation, intact cremesteric reflex, normal testicular lie Extremity: COMMON NORMALS: full ROM Neuro: SENSORIUM/ORIENTATION: Yes alert MOTOR EXAM: No Abnormal motor strength present and Other motor observations present (no focal motor deficits) Psych: COMMON NORMALS: speech normal SPEECH: Yes normal speech MOOD & AFFECT: Yes euthymic mood Course Vital Signs: Vital signs: Vital Signs Temperature 97.8 F 09/22/21 17:34 Pulse Rate 95 09/22/21 17:34 Respiratory Rate 17 09/22/21 17:34 Blood Pressure 111/73 09/22/21 17:34 Pulse Oximetry 98 09/22/21 17:34 MDM - General Adult Medical Decision Making 31-year-old male presenting to the emergency room for concerns of right-sided testicular pain and swelling after diagnosed with gonorrhea 3 days ago and received inpatient treatment. On exam, patient has been right-sided testicular swelling and tenderness palpation. No signs of testicular torsion. Patient is noted to have white count 19.6. Ultrasound showed progression of epididymitis/orchitis. No signs of abscess. Upon further review of recent admission, patient was not discharged home with a prescription for doxycycline for epididermitis. Patient received IM ceftriaxone 500 mg and doxycycline 100 mg today. Patient will be discharged home with a prescription for doxycycline. I discussed case with Dr. Reed who will have patient seen in clinic tomorrow afternoon. I have given patient follow up with our employment case manager to be seen by our outpatient Urology for urgent follow up for orchitis and epididermitis. Patient aware of a call from our employment case manager to schedule for appointment(s) and verbalizes understanding of the importance of following up. Rx doxycycline 100mg BID x 10 days, peroccet PRN pain Disposition: Discharge. Patient counseled regarding diagnostic impression, treatment plan. Patient given ED strict return precautions to return for continuation, worsening, or development of new symptoms. Instructed to f/u w/ PCP regarding symptoms today. Patient verbalized understanding. Lab Data : 09/22/21 14:54 09/22/21 14:54 Radiology Impressions Scrotum Ultrasound 09/22/21 13:58 IMPRESSION: 1. Progression in severe acute RIGHT epididymitis since the prior study along with mild RIGHT orchitis. 2. Diffuse progressive scrotal wall thickening and edema since the prior study. 3. No torsion. Laboratory Results WBC 19.6 10^3/uL (4.0-10.0) H 09/22/21 14:54 RBC 5.06 10^6/uL (4.1-5.3) 09/22/21 14:54 Hgb 16.0 g/dL (11.7-16.6) 09/22/21 14:54 Hct 46.9 % (42.0-52.0) 09/22/21 14:54 MCV 92.7 fl (80-94) 09/22/21 14:54 MCH 31.6 pg (28.0-34.0) 09/22/21 14:54 MCHC 34.1 g/dL (30.0-36.0) 09/22/21 14:54 RDW 12.4 % (12.1-15.1) 09/22/21 14:54 Plt Count 350 10^3/cmm (130-400) 09/22/21 14:54 MPV 8.9 fL (7.4-10.4) 09/22/21 14:54 Neut % (Auto) 79.7 % 09/22/21 14:54 Lymph % (Auto) 10.3 % 09/22/21 14:54 Mccormick % (Auto) 7.1 % 09/22/21 14:54 Eos % (Auto) 2.0 % 09/22/21 14:54 Baso % (Auto) 0.5 % 09/22/21 14:54 Neut # (Auto) 15.65 10^3/uL (1.8-7.7) H 09/22/21 14:54 Lymph # (Auto) 2.0 10^3/uL (0.8-4.8) 09/22/21 14:54 Mccormick # (Auto) 1.4 10^3/uL (0.2-0.9) H 09/22/21 14:54 Eos # (Auto) 0.4 10^3/uL (0.0-0.8) 09/22/21 14:54 Baso # (Auto) 0.1 10^3/uL (0.0-0.1) 09/22/21 14:54 Nucleated RBC % (auto) 0 % 09/22/21 14:54 Nucleated RBCs # 0.0 /100WBC 09/22/21 14:54 Sodium 133 mmol/L (136-145) L 09/22/21 14:54 Potassium 4.4 mmol/L (3.5-5.1) 09/22/21 14:54 Chloride 97 mmol/L (98-107) L 09/22/21 14:54 Carbon Dioxide 24 mmol/L (22-29) 09/22/21 14:54 Anion Gap 16.4 (5-19) 09/22/21 14:54 BUN 9 mg/dL (6-20) 09/22/21 14:54 Creatinine 0.9 mg/dL (0.7-1.2) 09/22/21 14:54 GFR Calculation 97.8 mL/min (90-130) 09/22/21 14:54 Glucose 103 mg/dL (65-115) 09/22/21 14:54 Calculated Osmolality 275 mOsm/kg (285-295) L 09/22/21 14:54 Calcium 9.6 mg/dL (8.5-10.5) 09/22/21 14:54 Imaging Data Other Imaging: Radiologist's impression: [address] [address] Ultrasound Report Signed Patient: Alden Urena Unit #: [id number] : 1990 Age/Sex: 31 / M ADM Date: 09/22/21 Loc: ER Room/Bed: Attending Dr: Ordering Provider/Ordering MD: Vinicio Lewis MD Date of Service: 09/22/21 Procedure(s): US scrotum [id number] Accession Number(s): [id number] Report Number: [id number] WS: [id number] TESTICULAR ULTRASOUND HISTORY: scrotal swelling COMPARISON: 09/20/2021 TECHNIQUE: Real-time and color Doppler imaging or utilized to perform a honorio ticular ultrasound. Right testicle: 4.2 cm x 3.3 cm x 2.9 cm. Testicle is normal size and echogenicity. Color Doppler is demonstrated throughout the RIGHT testicle with mild increased in intensity. Systolic and diastolic velocities are noted. No significant hydrocele. Right epididymis: There is marked thickening and heterogeneity throughout the epididymis. This has progressed since the prior study. There is variable echogenicity with increased vascularity. There is diffuse progressive scrotal wall thickening and edema. The most significant findings are along the inferior epididymis. Left testicle: 5.3 cm x 2.9 cm x 3.1 cm. Normal size and echogenicity. No mass or torsion. Normal color Doppler is present throughout. Systolic and diastolic velocities are both present. No significant hydrocele. Left epididymis: Normal epididymis with no increased vascularity. Diffuse scrotal wall thickening on the LEFT. US/ scrotum [id number] IMPRESSION: ? 1.? Progression in severe acute RIGHT epididymitis since the prior study along with mild RIGHT orchitis. 2.? Diffuse progressive scrotal wall thickening and edema since the prior study. 3.? No torsion. ? ? Dictated By: Bouchra Terry DO Signed By: Bouchra Terry DO Signed Date/Time: 09/22/21 1506 DD/ 1500 Discharge Plan Discharge Patient Disposition: Home Clinical Impression: Acute pain in scrotum, Swelling of testicle, Epididymitis, Orchitis Condition: Stable Prescriptions: New acetaminophen 500 mg tablet 500 mg PO Q6H PRN (Reason: pain) 5 Days Qty: 20 0RF doxycycline hyclate 100 mg capsule 100 mg PO BID 10 Days Qty: 20 0RF Percocet 5-325 mg tablet 1 tab PO Q8H PRN (Reason: pain) Qty: 8 0RF Discharge Orders: Discharge ED (Routine); Ordered 09/22/21 Ordered By: Vinicio Lewis Referrals: Radha Perez, ENGINEERING RECRUITER [Primary Care Provider] - Discharge Diet: Advance as tolerated Discharge Activity: Increase activity as tolerated Patient Instructions: Testicle Pain (ED) Activity Restrictions/Additional Instructions: Our employment case manager will have you follow-up with Urology in the next few days. You would be expected to have a phone call with our employment case manager who will put you on the schedule. You can expect a call from us in the next 2-3 days. If you don't hear from us, call us back in the emergency room at [phone]. Coding Level of Care Code ED Wool Shearing Supervisor for Maryan Fwd Exam Comprehensive
[2021-09-22] MEDS: morphine 4 mg/mL SDV 1 mL 2 MG IVP (14:50)
[2021-09-22 14:55] VITALS: BP 113/73; PULSE 103; RESP 16; O2SAT 95
[2021-09-22 15:11] LABS: Basophils # 0.1 10^3/uL (0.0-0.1); Basophils % 0.5 %; Eosinophils # 0.4 10^3/uL (0.0-0.8); Hematocrit 46.9 % (42.0-52.0); Lymphocytes % 10.3 %; Mean Corpuscular HGB Conc 34.1 g/dL (30.0-36.0); Mean Corpuscular Hemoglobin 31.6 pg (28.0-34.0); Mean Corpuscular Volume 92.7 fl (80-94); Mean Platelet Volume 8.9 fL (7.4-10.4); Monocytes # 1.4 10^3/uL (0.2-0.9); Monocytes % 7.1 %; Neutrophils # 15.65 10^3/uL (1.8-7.7); Neutrophils % 79.7 %; Nucleated Red Blood Cells % 0 %; Platelet Count 350 10^3/cmm (130-400); Red Blood Count 5.06 10^6/uL (4.1-5.3); Red Cell Distribution Width 12.4 % (12.1-15.1); White Blood Count 19.6 10^3/uL (4.0-10.0)
[2021-09-22 15:31] LABS: Blood Urea Nitrogen 9 mg/dL (6-20); Calcium 9.6 mg/dL (8.5-10.5); Carbon Dioxide 24 mmol/L (22-29); Chloride 97 mmol/L (98-107); Glomerular Filtration Rate 97.8 mL/min (90-130); Glucose 103 mg/dL (65-115); Osmolality Calculated 275 mOsm/kg (285-295); Sodium 133 mmol/L (136-145)
[2021-09-22 15:34] LABS: Anion Gap 16.4 (5-19); Potassium 4.4 mmol/L (3.5-5.1)
[2021-09-22] MEDS: doxycycline 100 MG in sodium chloride 0.9% (plus) 100 ML IV (16:25)
[2021-09-22 16:29] VITALS: BP 112/71; PULSE 106; RESP 15; O2SAT 97
--- NOTE | 2021-09-22 16:45 | PC.NURSE ---
Disregard previous note - charted on wrong pt
[2021-09-22] MEDS: ketorolac 30 mg/mL INJ IVP (16:53)
[2021-09-22] MEDS: sodium chloride 0.9% 500 ML IV (16:54)
[2021-09-22 17:32] VITALS: BP 111/73; PULSE 95; RESP 17; TEMP 36.6; O2SAT 98
[2021-09-22 17:34] VITALS: BP 111/73; PULSE 95; RESP 17; TEMP 36.6; O2SAT 98
--- NOTE | 2021-09-23 10:47 | DCPLANNER ---
Addendum entered by uAra Bales 10/01/21 08:24: Patient had a follow up appointment scheduled for 09.23.[address] Reed - patient did attend appointment. Original Note: health care marketing manager had message to schedule a follow up appointment for patient with Dr. Reed, at urology. health care marketing manager sent patients information to the front staff at urology for review. Patients information will be printed and reviewed. Clinic will call patient with appointment information.
== END 2021-09-22 17:35 | disposition home or self-care (01) ==
PROVIDERS: Emergency Provider Emergency Medicine; PCP Nurse Practitioner Adult Health
DX: N45.3 Epididymo-orchitis (principal); N50.89 Other specified disorders of the male genital organs; Z86.19 Personal history of other infectious and parasitic diseases
CPT/HCPCS: 76870; 80048; 85025; 96365; 96375; 99284; J0696; J1885; J2270; J3490; J7040

== ENCOUNTER → 2021-09-23 15:01 | Outpatient (BNVA) | payer MEDICAID, SELFPAY | PROVIDERS: PCP Nurse Practitioner Adult Health; Visit Provider Urology | DX: N20.0 Calculus of kidney (principal); N45.2 Orchitis; A54.00 Gonococcal infection of lower genitourinary tract, unspecified; N45.1 Epididymitis; F17.210 Nicotine dependence, cigarettes, uncomplicated | CPT/HCPCS: 81003 ==

== ENCOUNTER 2021-11-20 22:21 | Emergency (ER) | payer MEDICAID, SELFPAY ==
[2021-11-20 22:30] VITALS: BP 130/72; PULSE 122; RESP 17; TEMP 37.1; O2SAT 99; BMI 27.4
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
[2021-11-20] MEDS: HYDROcodone-acetaminophen 5-325 mg Tablet 1 TAB PO (23:34)
[2021-11-20 23:44] VITALS: BP 137/95; PULSE 103; RESP 18; O2SAT 100
[2021-11-21 00:59] VITALS: BP 124/83; PULSE 99; RESP 18; O2SAT 99
== END 2021-11-21 01:16 | disposition home or self-care (01) ==
PROVIDERS: Emergency Provider Emergency Medicine; PCP Nurse Practitioner Adult Health
DX: M25.552 Pain in left hip (principal); M54.2 Cervicalgia; V28.0XXA Motorcycle driver injured in noncollision transport accident in nontraffic accident, initial encounter
CPT/HCPCS: 72125; 74176; 99283

== ENCOUNTER 2022-01-05 19:14 | Inpatient (IN) | payer MEDICAID, SELFPAY ==
[2022-01-05] VITALS (15 sets, daily range): BP systolic 99–146; BP diastolic 63–97; PULSE 102–145; RESP 14–21; TEMP 36.9–37.1; O2SAT 91–100; BMI 28.3; BMI 27.8
--- NOTE | 2022-01-05 19:29 | W.ED.GENADLT ---
HPI - General Adult General: Chief complaint: Psychiatric Symptoms Stated complaint: MHE Time Seen by Provider: 01/05/22 19:18 History of Present Illness: HPI: [31]yo patient w/ hx of depression BIBA for SI and auditory hallucination. Patient endorses SI to police. On arrival, the patient is AAOx3 and cooperative with my evaluation. No focal complaints of chest pain, shortness of breath, palpitations, N/V, focal GI/ complaints. Currently denies HI. No complaints of visual hallucinations. Onset: acute Duration: ongoing Location: home Severity: severe Associated symptoms: Deny chest pain, dyspnea, nausea, rash, palpitations or vomiting Review of Systems Const: Denies: fever(s) or chills Eyes: Denies: change in vision ENMT: Denies: mouth pain Card: Denies: chest pain or palpitations Resp: Denies: dyspnea or non-productive cough GI: Denies: abdominal pain, nausea, vomiting or diarrhea : Denies: dysuria Musc: Denies: extremity pain Skin/Breast: Denies: rash or new lesions Neuro: Denies: weakness in extremities Psych: Reports: depression, auditory hallucinations and suicidal ideation Axel/Lymph: Denies: easy bruising PFSH ED PFSH: Medical History Back pain Nephrolithiasis Psychiatric care Surgical History No pertinent past surgical history Social History Smoking and tobacco status: current every day smoker Alcohol intake: current Alcohol intake frequency: few times a month Marital status: Single Current occupational status: unemployed History of recent travel: No Physical Exam Const: COMMON NORMALS: alert HENMT: COMMON NORMALS: atraumatic HEAD & SCALP: atraumatic MOUTH: moist mucous membranes not abnormal Eye: COMMON NORMALS: EOMs intact bilaterally and conjunctivae normal CONJUNCTIVA: Yes conjunctivae normal Neck/C-Spine: COMMON NORMALS: full ROM and supple Resp: COMMON NORMALS: normal respiratory effort and clear to auscultation bilaterally AUSCULTATION: clear to auscultation bilaterally Cardio: COMMON NORMALS: regular rate RATE: regular rate GI: COMMON NORMALS: Soft to palpation and non-tender PALPATION: Yes Soft to palpation Extremity: COMMON NORMALS: full ROM Neuro: SENSORIUM/ORIENTATION: Yes alert MOTOR EXAM: No Abnormal motor strength present and Other motor observations present (no focal motor deficits) Psych: SPEECH: Yes excessive and Yes rapid MOOD & AFFECT: Yes anxious, Yes irritable and Yes hostile affect (Patient was verbal aggressive with healthcare staff) Procedures Intubation Time out performed: Yes sedative: Etomidate Mg Given: 20 paralytic: Vecuronium Mg Given: 10 Laryngoscope: Francia ET Tube Size: 7.5 ET Tube Uncuffed: No Tube Secured Depth (cm): 21 Tube Secured Location: lips Tube Placement Confirmation: visualized tube passing through cords, equal breath sounds bilaterally, no breath sounds over epigastrium and confirmation by capnometry Patient Tolerated Procedure: well Intubation Complications: none Course Vital Signs: Vital signs: Vital Signs Temperature 99.1 F 01/06/22 10:24 Pulse Rate 93 01/06/22 10:24 Respiratory Rate 17 01/06/22 11:00 Blood Pressure 131/92 01/06/22 10:24 Pulse Oximetry 94 01/06/22 11:00 MDM - General Adult Medical Decision Making [31]yo patient w/ hx of schizophrenia presenting for SI and hearing voices. HDS, exam within normal limit Thoughts are linear and organized, and the patient has no VH or HI.Clinically the patient displays no overt toxidrome; they are well appearing, with low suspicion for toxic ingestion given history and exam. Symptoms unlikely 2/2 anemia, hypothyroidism, infection, or ICH. Patient had multiple affidavits from police officers for concern of self-harm and was immediately placed under involuntary commitment. In emergency room, patient was verbally aggressive with staff despite multiple attempts at verbal deescalation. At 9pm, patient became physically violent with staff and received 400 mg IM ketamine. He was temporarily restrained. At 9:02 PM, patient shortly after getting ketamine, the patient was aggressively trying to out of the stretcher with rails on while restrained. Patient removed one of the side rail despite multiple attempts to contain him and then fell to the ground. Patient was lifted from the and placed in rails and is calm after the ketamine. Patient did not required physical restraints after the ketamine. Patient has L posterior scalp hematoma on CT. CT imaging of the head was negative for any acute intracranial bleeding. Workup: CBC, CMP, Lipase, salicylate/tylenol, UDS, alcohol level Lab findings: wnl, alcohol level of 147 [9:39pm] On reassessment, labs and workup wnl. Patient is hemodynamically stable with no acute medical complaints. Case discussed with psychiatric provider Dr. Leon at [facility] psych inpatient with recommendation for admission Shortly after patient came back to his room from CT at 9:52 PM, patient was noted to be satting at 60%. Patient is noted to have increased work of breathing. We placed nasal trumpet and increased patient to 15NRB but patinet continues to be gagging and stridors with recurrent desats to the low 80s. No visible signs of laryngospasm or jaw clonus. After 20 minutes of observation, decision was made to emergently intubate patient given persistence of cough/gagging/stridor symptoms, altered mental status and concerns for impending airway compromise. Please refer to the procedure note for intubation. Patient is now on propofol on fentanyl drip. NG tube/ chung placed. No complications after intubation. Disposition: ICU Lab Data : 01/06/22 06:35 01/06/22 06:[address] 01/05/22 21:03 IMPRESSION: 1. No evidence of acute intracranial hemorrhage, mass effect, or midline shift. 2. No evidence of acute calvarial fractures. 3. Small posterior parietal soft tissue swelling. Chest X-Ray 01/05/22 22:11 IMPRESSION: 1. ET tube in satisfactory position. 2. No acute cardiopulmonary finding. KUB X-Ray 01/05/22 22:20 IMPRESSION: The nasogastric tube loops in the stomach with the tip and the side hole well below the diaphragm. Laboratory Results WBC 8.0 10^3/uL (4.0-10.0) 01/05/22 19:37 RBC 4.99 10^6/uL (4.1-5.3) 01/05/22 19:37 Hgb 15.7 g/dL (11.7-16.6) 01/05/22 19:37 Hct 47.5 % (42.0-52.0) 01/05/22 19:37 MCV 95.2 fl (80-94) H 01/05/22 19:37 MCH 31.5 pg (28.0-34.0) 01/05/22 19:37 MCHC 33.1 g/dL (30.0-36.0) 01/05/22 19:37 RDW 13.0 % (12.1-15.1) 01/05/22 19:37 Plt Count 318 10^3/cmm (130-400) 01/05/22 19:37 MPV 8.9 fL (7.4-10.4) 01/05/22 19:37 Neut % (Auto) 50.5 % 01/05/22 19:37 Lymph % (Auto) 41.0 % 01/05/22 19:37 [place] % (Auto) 4.7 % 01/05/22 19:37 Eos % (Auto) 2.4 % 01/05/22 19:37 Baso % (Auto) 1.0 % 01/05/22 19:37 Neut # (Auto) 4.05 10^3/uL (1.8-7.7) 01/05/22 19:37 Lymph # (Auto) 3.3 10^3/uL (0.8-4.8) 01/05/22 19:37 [place] # (Auto) 0.4 10^3/uL (0.2-0.9) 01/05/22 19:37 Eos # (Auto) 0.2 10^3/uL (0.0-0.8) 01/05/22 19:37 Baso # (Auto) 0.1 10^3/uL (0.0-0.1) 01/05/22 19:37 Nucleated RBC % (auto) 0 % 01/05/22 19:37 Nucleated RBCs # 0.0 /100WBC 01/05/22 19:37 D-Dimer 1.22 ug/mIFEU (0-0.59) H 01/05/22 19:37 Specimen Type Arterial 01/05/22 23:17 Sample Site Radial, right 01/05/22 23:17 ABG pH 7.29 (7.35-7.45) L 01/05/22 23:17 ABG pCO2 52.9 mmHg (35-45) H 01/05/22 23:17 ABG pO2 304.0 mmHg (80.0-100.0) H 01/05/22 23:17 ABG HCO3 25.2 mmol/L (22-26) 01/05/22 23:17 ABG Base Excess -2.3 mmol/L (-2.0-2.0) L 01/05/22 23:17 [place] Test N/a 01/05/22 23:17 Hematocrit 46.2 % (42-52) 01/05/22 23:17 O2 Delivery Device Vent 01/05/22 23:17 FiO2 100.0 % 01/05/22 23:17 PEEP 5.0 cmH20 01/05/22 23:17 Signal Maintainer ID Hensa 01/05/22 23:17 Sodium 145 mmol/L (136-145) 01/05/22 19:37 Potassium 4.3 mmol/L (3.5-5.1) 01/05/22 19:37 Chloride 106 mmol/L (98-107) 01/05/22 19:37 Carbon Dioxide 29 mmol/L (22-29) 01/05/22 19:37 Anion Gap 14.3 (5-19) 01/05/22 19:37 BUN 8 mg/dL (6-20) 01/05/22 19:37 Creatinine 1.1 mg/dL (0.7-1.2) 01/05/22 19:37 GFR Calculation 77.6 mL/min (90-130) L 01/05/22 19:37 Glucose 102 mg/dL (65-115) 01/05/22 19:37 Calculated Osmolality 299 mOsm/kg (285-295) H 01/05/22 19:37 Lactic Acid 1.6 mmol/L (0.5-2.2) 01/05/22 19:37 Calcium 9.2 mg/dL (8.5-10.5) 01/05/22 19:37 Magnesium 2.2 mg/dL (1.7-2.3) 01/05/22 19:37 Total Bilirubin 0.2 mg/dL (0.15-1.2) 01/05/22 19:37 AST 22 U/L (0-40) 01/05/22 19:37 ALT 26 U/L (0-41) 01/05/22 19:37 Alkaline Phosphatase 170 IU/L (40-130) H 01/05/22 19:37 Total Protein 7.3 g/dL (6.6-8.7) 01/05/22 19:37 Albumin 4.8 g/dL (3.5-5.2) 01/05/22 19:37 Globulin 2.5 g/dL (1.3-4.6) 01/05/22 19:37 Lipase 29 U/L (13-60) 01/05/22 19:37 Urine Color Yellow (Yellow) 01/05/22 23:00 Urine Appearance Clear (CLEAR) 01/05/22 23:00 Urine pH 7 (5-7) 01/05/22 23:00 Ur Specific [place] 1.005 (1.005-1.030) 01/05/22 23:00 Urine Protein Neg (Negative) 01/05/22 23:00 Urine Glucose (UA) Norm (Normal) 01/05/22 23:00 Urine Ketones Negative (Negative) 01/05/22 23:00 Urine Blood Neg (Negative) 01/05/22 23:00 Urine Nitrate Negative (Negative) 01/05/22 23:00 Urine Bilirubin Neg (Negative) 01/05/22 23:00 Urine Urobilinogen Norm mg/dL (Negative) 01/05/22 23:00 Ur Leukocyte Esterase Negative (Negative) 01/05/22 23:00 Salicylates < 0.3 mg/dL (3-10) L 01/05/22 19:37 Urine Opiates Screen Negative ng/mL (Negative) 01/05/22 23:00 Acetaminophen < 5.0 ug/mL (10-30) L 01/05/22 19:37 Ur Barbiturates Screen Negative ng/mL (Negative) 01/05/22 23:00 Ur Phencyclidine Scrn Negative ng/mL (Negative) 01/05/22 23:00 Ur Amphetamines Screen Positive ng/mL (Negative) H 01/05/22 23:00 U Benzodiazepines Scrn Negative ng/mL (Negative) 01/05/22 23:00 Urine Cocaine Screen Negative ng/mL (Negative) 01/05/22 23:00 U Marijuana (THC) Screen Positive ng/mL (Negative) H 01/05/22 23:00 Ethyl Alcohol 142 mg/dL (0-10) H 01/05/22 19:37 SARS-CoV-2 Ag (Rapid) Negative (Negative) 01/05/22 22:39 Imaging Data Other Imaging: Radiologist's impression: [address] [address] [address] Scan Report Signed Patient: Alden Urena Unit #: [id number] : 1990 Age/Sex: 31 / M ADM Date: 01/05/22 Loc: ICU Room/Bed: [place] [address]: Dony Bautista MD Ordering Provider/Ordering MD: Vinicio Lewis MD Date of Service: 01/05/22 Procedure(s): CT head wo con* [id number] Accession Number(s): [id number] Report Number: [id number] PROCEDURE INFORMATION: Exam: CT Head Without Contrast Exam date and time: 01/05/2022 9:29 PM Age: 31 years old Clinical indication: Injury or trauma; Fall; Blunt trauma (contusions or hematomas); Additional info: Fall, hematoma on back of head TECHNIQUE: Imaging protocol: Computed tomography of the head without contrast. Radiation optimization: All CT scans at this facility use at least one of these dose optimization techniques: automated exposure control; mA and/or kV adjustment per patient size (includes targeted exams where dose is matched to clinical indication); or iterative reconstruction. COMPARISON: CT cervical spin wo con* [id number] 11/20/2021 11:28 PM RADIATION DOSE METRICS: Total DLP (mGy-cm): 1116.08 FINDINGS: Brain: No evidence of acute intracranial hemorrhage. There is no midline shift or significant mass effect. Minimal prominence of the sulci near the vertex, likely within normal limits. The monahan-white matter differentiation is maintained. Cerebral ventricles: The ventricles are normal in size, shape, and configuration. Paranasal sinuses: Mild paranasal sinus disease. Mastoid air cells: Visualized mastoid air cells are well aerated. Nasal cavity: Ligia bullosa of the middle turbinates, perhaps minimally opacified on the right . The nasal septum is slightly deviated to the right with a septal spur deforming the right inferior turbinate. Bones/joints: No acute calvarial fractures are identified. Soft tissues: Mild soft tissue swelling/small hematoma along the posterior parietal scalp. Vasculature: Mild increased density in the venous sinuses likely related to the dehydration or hemoconcentration. Other findings: No large territory infarcts are identified. CT/CT head wo con* [id number] IMPRESSION: 1. No evidence of acute intracranial hemorrhage, mass effect, or midline shift. 2. No evidence of acute calvarial fractures. 3. Small posterior parietal soft tissue swelling. ? Dictated By: Efrem Gomez MD Signed By: Efrem Gomez MD Signed Date/Time: 01/05/222245 DD/ 28 Critical Care Time Critical Care Time: Critical Care Time: Yes Total Critical Care Time: 35 Attestation: The high probability of a clinically significant, sudden or life threatening deterioration of the patient's respiratory system(s) required my full and direct attention, intervention and personal management. The critical care time is as shown. This time is in addition to time spent performing any reported procedures but includes the following: [x] Data and vital sign review and interpretation [x] Patient assessment, examination and intervention [x] Documentation [x] Medication orders and management Discharge Plan Discharge Patient Disposition: Admitted As Inpatient Admit Provider: Dony Bautista Clinical Impression: History of suicidal ideation, Aggressive behavior, Aspiration into airway, Hypoxemia Condition: Stable Coding Level of Care Code ED Substance Abuse Prevention Coordinator for Chg Fwd Exam Comprehensive Face to Face: Restrn/Seclusion Events leading up to initiation: Verbalizing threat to self or others and Combative/Striking out at staff or others Evaluation of patient's immediate situation: Signs of psychological distress Patient reaction since intervention applied: De-escalation/no displays of violent/destructive behavior Recent labs reviewed: Yes Review of medications: Yes Patient's current medical/behavioral condition: No new concerns since last ROS Need for restraint or seclusion is: No longer present Attending notified: Yes
[2022-01-05 20:15] LABS: Basophils # 0.1 10^3/uL (0.0-0.1); Eosinophils # 0.2 10^3/uL (0.0-0.8); Eosinophils % 2.4 %; Hematocrit 47.5 % (42.0-52.0); Hemoglobin 15.7 g/dL (11.7-16.6); Lymphocytes # 3.3 10^3/uL (0.8-4.8); Mean Corpuscular HGB Conc 33.1 g/dL (30.0-36.0); Mean Corpuscular Hemoglobin 31.5 pg (28.0-34.0); Mean Corpuscular Volume 95.2 fl (80-94); Mean Platelet Volume 8.9 fL (7.4-10.4); Monocytes # 0.4 10^3/uL (0.2-0.9); Monocytes % 4.7 %; Neutrophils # 4.05 10^3/uL (1.8-7.7); Neutrophils % 50.5 %; Nucleated Red Blood Cells % 0 %; Platelet Count 318 10^3/cmm (130-400); Red Blood Count 4.99 10^6/uL (4.1-5.3)
[2022-01-05 20:25] LABS: Alanine Aminotransferase 26 U/L (0-41); Albumin Level 4.8 g/dL (3.5-5.2); Alkaline Phosphatase 170 IU/L (40-130); Anion Gap 14.3 (5-19); Aspartate Amino Transferase 22 U/L (0-40); Blood Urea Nitrogen 8 mg/dL (6-20); Calcium 9.2 mg/dL (8.5-10.5); Carbon Dioxide 29 mmol/L (22-29); Chloride 106 mmol/L (98-107); Globulin 2.5 g/dL (1.3-4.6); Glomerular Filtration Rate 77.6 mL/min (90-130); Glucose 102 mg/dL (65-115); Lipase 29 U/L (13-60); Osmolality Calculated 299 mOsm/kg (285-295); Potassium 4.3 mmol/L (3.5-5.1); Sodium 145 mmol/L (136-145); Total Bilirubin 0.2 mg/dL (0.15-1.2); Total Protein 7.3 g/dL (6.6-8.7)
[2022-01-05 20:27] LABS: Acetaminophen < 5.0 ug/mL (10-30); Salicylate < 0.3 mg/dL (3-10)
[2022-01-05] MEDS: LORazepam 2 mg Tablet PO (20:33)
[2022-01-05 21:02] LABS: Alcohol Level 142 mg/dL (0-10)
--- NOTE | 2022-01-05 21:03 | CTR_ITS ---
PROCEDURE INFORMATION: Exam: CT Head Without Contrast Exam date and time: 01/05/2022 9:29 PM Age: 31 years old Clinical indication: Injury or trauma; Fall; Blunt trauma (contusions or hematomas); Additional info: Fall, hematoma on back of head TECHNIQUE: Imaging protocol: Computed tomography of the head without contrast. Radiation optimization: All CT scans at this facility use at least one of these dose optimization techniques: automated exposure control; mA and/or kV adjustment per patient size (includes targeted exams where dose is matched to clinical indication); or iterative reconstruction. COMPARISON: CT cervical spin wo con* [id number] 11/20/2021 11:28 PM RADIATION DOSE METRICS: Total DLP (mGy-cm): 1116.08 FINDINGS: Brain: No evidence of acute intracranial hemorrhage. There is no midline shift or significant mass effect. Minimal prominence of the sulci near the vertex, likely within normal limits. The monahan-white matter differentiation is maintained. Cerebral ventricles: The ventricles are normal in size, shape, and configuration. Paranasal sinuses: Mild paranasal sinus disease. Mastoid air cells: Visualized mastoid air cells are well aerated. Nasal cavity: Ligia bullosa of the middle turbinates, perhaps minimally opacified on the right . The nasal septum is slightly deviated to the right with a septal spur deforming the right inferior turbinate. Bones/joints: No acute calvarial fractures are identified. Soft tissues: Mild soft tissue swelling/small hematoma along the posterior parietal scalp. Vasculature: Mild increased density in the venous sinuses likely related to the dehydration or hemoconcentration. Other findings: No large territory infarcts are identified. CT/CT head wo con* [id number] IMPRESSION: 1. No evidence of acute intracranial hemorrhage, mass effect, or midline shift. 2. No evidence of acute calvarial fractures. 3. Small posterior parietal soft tissue swelling.
[2022-01-05] MEDS: ziprasidone 20 mg/mL SDV 10 MG IM (21:20)
--- NOTE | 2022-01-05 21:55 | XRR_ITS ---
PROCEDURE INFORMATION: Exam: XR Chest Exam date and time: 01/05/2022 9:57 PM Age: 31 years old Clinical indication: Other: Low o2 TECHNIQUE: Imaging protocol: Radiologic exam of the chest. Views: 1 view. COMPARISON: CR Ribs LEFT w PA Chest [id number] 04/17/2015 5:17 PM FINDINGS: Tubes, catheters and devices: None. Lungs: Mild bibasilar opacities, likely atelectasis although inflammation or infection cannot be excluded.. No consolidative opacity or pulmonary edema. No pleural effusion. No pneumothorax. Pleural spaces: See Lungs finding. Heart/Mediastinum: The cardiomediastinal silhouette appears grossly unremarkable. Bones/joints: No acute rib fractures are identified. Other findings: A calcific density overlying the lateral left 5th rib measuring approximately 8 by 5 mm. XR/XR chest 1V portable [id number] IMPRESSION: Minimal bibasilar opacities may represent atelectasis, inflammation, or infection. No pleural effusion or pneumothorax.
[2022-01-05] MEDS: vecuronium 10 mg SDV IVP (22:09)
--- NOTE | 2022-01-05 22:11 | XR_ITS ---
WS: [id number] Exam: XR chest 1V portable [id number] Date/Time of Exam: 01/05/2022 10:11 PM Reason For Exam: Post-intubation Comparison 01/05/2022 0959 hours. An ET tube has been placed and ends at about the level of T4 in satisfactory position. The lungs are clear and well ventilated. Normal cardiomediastinal silhouette. No pleural effusions. Bony structures are intact. Monitoring leads superimpose the chest. XR/XR chest 1V portable [id number] IMPRESSION: 1. ET tube in satisfactory position. 2. No acute cardiopulmonary finding.
--- NOTE | 2022-01-05 22:11 | PC.NURSE ---
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 Noted that respirations slowed to an a period of apnea. Did a sternal rub to wake patient. Patient coughed several times. Did a chin-lift head tilt. O2 saturation dropped to the 70's called for help. Several ER nurses and Dr. Lewis at bedside.
[2022-01-05] MEDS: sodium chloride 0.9% 1,000 ML 999 ML IV (22:19)
--- NOTE | 2022-01-05 22:20 | XRR_ITS ---
PROCEDURE INFORMATION: Exam: XR Abdomen Exam date and time: 01/05/2022 11:10 PM Age: 31 years old Clinical indication: Device placement; Gi device; Nasogastric tube; Additional info: Post ng insertion TECHNIQUE: Imaging protocol: Radiologic exam of the abdomen. Views: Frontal supine view of the abdomen. 1 View. COMPARISON: CT abdomen pelvis con [id number] 11/20/2021 11:30 PM FINDINGS: Tubes, catheters and devices: The nasogastric tube loops in the stomach with the tip and the side hole well below the diaphragm. The colon is loaded with fecal matter and gasses. Nonobstructive gas pattern. Gastrointestinal tract: See Tubes, catheters and devices finding. Bones/joints: Unremarkable. Other findings: Findings/impression: XR/XR KUB portable [id number] IMPRESSION: The nasogastric tube loops in the stomach with the tip and the side hole well below the diaphragm.
--- NOTE | 2022-01-05 22:21 | PC.NURSE ---
220, RN sitting with pt, called for help due to pt not holding o2 saturation up. Dr Lewis to room 2201, several interventions attempted, NRB, nasal trumpet, head lift chin tilt applied, Dr LEWIS decided to intubate for pt safety at 2206, moved to room 10 for intubation. Pt intubated 2209. 10mg vecuronium, and 20mg Etomidate IVP for intubation. Vtials pre intubation 112/80, 117, 98%, 19. @2208. Post intubation vitals 114/79 95HR, 99% vent/ET tube, 14RR @2220.
[2022-01-05] MEDS: propofol 1,000 MG/100 ML INJ 11.23 MG IV (22:50)
[2022-01-05 23:01] LABS: SARS Covid-2 Antigen Negative (Negative)
[2022-01-05 23:23] LABS: Amphetamines Screen Urine Positive (Negative); Barbiturates Screen Urine Negative (Negative); Benzodiazepines Screen Urine Negative (Negative); Cocaine Screen Urine Negative (Negative); Opiate Screen Urine Negative (Negative); PCP Screen Urine Negative (Negative); THC Screen Urine Positive (Negative)
[2022-01-05 23:29] LABS: ABG PCO2 52.9 mmHg (35-45); ABG PH Result 7.29 (7.35-7.45); Arterial Blood Gas Hematocrit 46.2 % (42-52); Base Excess ABG -2.3 mmol/L (-2.0-2.0); Blood Gas Sample Site Radial, right; Blood Gas Sample Type Arterial; HCO3 ABG 25.2 mmol/L (22-26); Oxygen Device VENT
--- NOTE | 2022-01-05 23:33 | ECG_ITS ---
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 Measurements Intervals [place] Rate: 102 P: 54 MO: 155 QRS: 70 QRSD: 91 T: 51 QT: 325 QTc: 425 Interpretive Statements SINUS TACHYCARDIA ABNORMAL RHYTHM ECG Compared to ECG 04/22/2018 01:35:59 No significant changes Electronically Signed On 01-06-2022 12:08:59 CDT by Tasha Villa M.D. [id number]
--- NOTE | 2022-01-05 23:44 | PM.HP ---
Providers/Chief Complaint Admitting Physician: Dony Bautista MD Primary Care Provider: Radha Perez APRN Chief Complaint: MHE History of Present Illness History is obtained by talking to ER physician and patient's mother as patient is currently intubated and sedated and cannot participate in history taking. Alden Urena is a 31 year old male who was brought into the ER by police this evening with chief complains of suicidal ideation and auditory hallucinations. Per his mother patient recently had a break-up with his longtime girlfriend and has been having a rough time dealing with it for the past few months. He has been drinking excessively every day and has previously used antidepressants during periods of stress. Today he was noted to be hitting the fence in his backyard and cursing loudly due to which neighbors called the police and he was eventually brought here. The mother is unaware if he had been having hallucinations recently. She states this would not be a usual occurrence for him. He was planning to establish care with [facility] for help with alcohol dependence. No other history is known at this time. Upon initial arrival at the ER, it is noted that patient was alert oriented x3 and cooperative with the evaluation. He was placed on a 96-hour hold and plan to be admitted to the [facility], however thereafter it appears patient became verbally aggressive with staff. In spite of attempts at verbal de-escalation, the patient was unable to be calmed and started physically hitting the staff. He then received 400 mg of IM ketamine at around 9 PM. He additionally suffered a fall while attempting to get out of the stretcher following which she developed a left posterior scalp hematoma. CT head was otherwise negative for any acute intracranial bleeding. At around 10 PM he returned from head CT and was noted to be desaturating down to SPO2 of 60%. He was also noted to have respiratory distress without significant improvement after being placed on nonrebreather. He was eventually intubated for low GCS and airway protection. At this present time he is on fentanyl and propofol infusion. Blood alcohol level resulted at 147. U tox was positive for methamphetamines and marijuana. No leukocytosis. Review of Systems General: Reports: ROS unobtainable due to medical condition and ROS unobtainable due to mental status Medications/Allergies Home Medications Medication Instructions Recorded Confirmed Last Taken Type No Known Home Medications 01/05/22 01/05/22 Unknown History Allergies Allergy/AdvReac Type Severity Reaction Status Date / Time No Known Allergies Allergy Verified 12/30/21 15:15 PFSH Acute PFSH: Medical History Back pain Nephrolithiasis Psychiatric care Surgical History No pertinent past surgical history Social History Smoking and tobacco status: current every day smoker Alcohol intake: current Alcohol intake frequency: few times a month Marital status: Single Current occupational status: unemployed History of recent travel: No Vitals/I&O/Wt Last Vital Signs Temp 98.5 F 01/05/22 19:16 Pulse 102 H 01/05/22 23:11 Resp 14 01/05/22 23:37 BP 122/76 01/05/22 23:11 Pulse Ox 97 01/05/22 23:37 01/05/22 01/05/22 01/06/22 14:59 22:59 06:59 Intake Total Balance Weight last 48 hrs Weight 74.843 kg Physical Exam Narrative: General: Intubated, sedated HEENT: pupils bilaterally equal and reactive, pallors not present Chest: Normal vesicular breath sounds, no added sounds, equal good air entry bilaterally CVS: S1-S2 regular, no murmurs, no tachycardia, no gallops, no rubs Abdomen: Soft, no organomegaly, bowel sounds present Neuro: Intubated, sedated, unable to assess Extremities: No edema clubbing cyanosis Urinary Catheter Management: Bowden: Cath Placed During This Visit: yes Urinary Catheter Date of Insertion: 01/05/22 Urinary Catheter Time of Insertion: 22:30 Data : 01/05/22 19:37 01/05/22 19:37 Other Labs: Radiology Impressions Head CT 01/05/22 21:03 IMPRESSION: 1. No evidence of acute intracranial hemorrhage, mass effect, or midline shift. 2. No evidence of acute calvarial fractures. 3. Small posterior parietal soft tissue swelling. KUB X-Ray 01/05/22 22:20 IMPRESSION: The nasogastric tube loops in the stomach with the tip and the side hole well below the diaphragm. Laboratory Results WBC 8.0 10^3/uL (4.0-10.0) 01/05/22 19:37 RBC 4.99 10^6/uL (4.1-5.3) 01/05/22 19:37 Hgb 15.7 g/dL (11.7-16.6) 01/05/22 19:37 Hct 47.5 % (42.0-52.0) 01/05/22 19:37 MCV 95.2 fl (80-94) H 01/05/22 19:37 MCH 31.5 pg (28.0-34.0) 01/05/22 19:37 MCHC 33.1 g/dL (30.0-36.0) 01/05/22 19:37 RDW 13.0 % (12.1-15.1) 01/05/22 19:37 Plt Count 318 10^3/cmm (130-400) 01/05/22 19:37 MPV 8.9 fL (7.4-10.4) 01/05/22 19:37 Neut % (Auto) 50.5 % 01/05/22 19:37 Lymph % (Auto) 41.0 % 01/05/22 19:37 [place] % (Auto) 4.7 % 01/05/22 19:37 Eos % (Auto) 2.4 % 01/05/22 19:37 Baso % (Auto) 1.0 % 01/05/22 19:37 Neut # (Auto) 4.05 10^3/uL (1.8-7.7) 01/05/22 19:37 Lymph # (Auto) 3.3 10^3/uL (0.8-4.8) 01/05/22 19:37 [place] # (Auto) 0.4 10^3/uL (0.2-0.9) 01/05/22 19:37 Eos # (Auto) 0.2 10^3/uL (0.0-0.8) 01/05/22 19:37 Baso # (Auto) 0.1 10^3/uL (0.0-0.1) 01/05/22 19:37 Nucleated RBC % (auto) 0 % 01/05/22 19:37 Nucleated RBCs # 0.0 /100WBC 01/05/22 19:37 D-Dimer 1.22 ug/mIFEU (0-0.59) H 01/05/22 19:37 Specimen Type Arterial 01/05/22 23:17 Sample Site Radial, right 01/05/22 23:17 ABG pH 7.29 (7.35-7.45) L 01/05/22 23:17 ABG pCO2 52.9 mmHg (35-45) H 01/05/22 23:17 ABG pO2 304.0 mmHg (80.0-100.0) H 01/05/22 23:17 ABG HCO3 25.2 mmol/L (22-26) 01/05/22 23:17 ABG Base Excess -2.3 mmol/L (-2.0-2.0) L 01/05/22 23:17 [place] Test N/a 01/05/22 23:17 Hematocrit 46.2 % (42-52) 01/05/22 23:17 O2 Delivery Device Vent 01/05/22 23:17 FiO2 100.0 % 01/05/22 23:17 PEEP 5.0 cmH20 01/05/22 23:17 Business Continuity Planning Director ID Hensa 01/05/22 23:17 Sodium 145 mmol/L (136-145) 01/05/22 19:37 Potassium 4.3 mmol/L (3.5-5.1) 01/05/22 19:37 Chloride 106 mmol/L (98-107) 01/05/22 19:37 Carbon Dioxide 29 mmol/L (22-29) 01/05/22 19:37 Anion Gap 14.3 (5-19) 01/05/22 19:37 BUN 8 mg/dL (6-20) 01/05/22 19:37 Creatinine 1.1 mg/dL (0.7-1.2) 01/05/22 19:37 GFR Calculation 77.6 mL/min (90-130) L 01/05/22 19:37 Glucose 102 mg/dL (65-115) 01/05/22 19:37 Calculated Osmolality 299 mOsm/kg (285-295) H 01/05/22 19:37 Lactic Acid 1.6 mmol/L (0.5-2.2) 01/05/22 19:37 Calcium 9.2 mg/dL (8.5-10.5) 01/05/22 19:37 Magnesium 2.2 mg/dL (1.7-2.3) 01/05/22 19:37 Total Bilirubin 0.2 mg/dL (0.15-1.2) 01/05/22 19:37 AST 22 U/L (0-40) 01/05/22 19:37 ALT 26 U/L (0-41) 01/05/22 19:37 Alkaline Phosphatase 170 IU/L (40-130) H 01/05/22 19:37 Total Protein 7.3 g/dL (6.6-8.7) 01/05/22 19:37 Albumin 4.8 g/dL (3.5-5.2) 01/05/22 19:37 Globulin 2.5 g/dL (1.3-4.6) 01/05/22 19:37 Lipase 29 U/L (13-60) 01/05/22 19:37 Urine Color Yellow (Yellow) 01/05/22 23:00 Urine Appearance Clear (CLEAR) 01/05/22 23:00 Urine pH 7 (5-7) 01/05/22 23:00 Ur Specific [place] 1.005 (1.005-1.030) 01/05/22 23:00 Urine Protein Neg (Negative) 01/05/22 23:00 Urine Glucose (UA) Norm (Normal) 01/05/22 23:00 Urine Ketones Negative (Negative) 01/05/22 23:00 Urine Blood Neg (Negative) 01/05/22 23:00 Urine Nitrate Negative (Negative) 01/05/22 23:00 Urine Bilirubin Neg (Negative) 01/05/22 23:00 Urine Urobilinogen Norm mg/dL (Negative) 01/05/22 23:00 Ur Leukocyte Esterase Negative (Negative) 01/05/22 23:00 Salicylates < 0.3 mg/dL (3-10) L 01/05/22 19:37 Urine Opiates Screen Negative ng/mL (Negative) 01/05/22 23:00 Acetaminophen < 5.0 ug/mL (10-30) L 01/05/22 19:37 Ur Barbiturates Screen Negative ng/mL (Negative) 01/05/22 23:00 Ur Phencyclidine Scrn Negative ng/mL (Negative) 01/05/22 23:00 Ur Amphetamines Screen Positive ng/mL (Negative) H 01/05/22 23:00 U Benzodiazepines Scrn Negative ng/mL (Negative) 01/05/22 23:00 Urine Cocaine Screen Negative ng/mL (Negative) 01/05/22 23:00 U Marijuana (THC) Screen Positive ng/mL (Negative) H 01/05/22 23:00 Ethyl Alcohol 142 mg/dL (0-10) H 01/05/22 19:37 SARS-CoV-2 Ag (Rapid) Negative (Negative) 01/05/22 22:39 A&P Assessment and plan (1) Acute hyperactive delirium due to multiple etiologies: Status: Acute (2) Alcohol intoxication delirium: Status: Acute (3) Acute respiratory failure: Status: Acute (4) Polysubstance abuse: Status: Acute Plan Acute hyperactive delirium upon presentation, may be related to acute alcohol intoxication versus intoxication with methamphetamines. He was noted to be verbally and physically aggressive for which ketamine was administered in the ER. He is currently intubated and sedated, on fentanyl and propofol infusion, will continue same for tonight and attempt weaning in the a.m. should he clinically start to improve. Start Librium 25mg po q6h via NGT Normal saline at 75 cc an hour, Thiamine 100 mg p.o. daily, folic acid 1 mg p.o. daily Differentials for delirium include metabolic encephalopathy, Korsakoff psychosis. Patient history of gonococcal urethritis in September 2021. We will additionally screen for other STDs which may contribute to altered mental status including fourth-generation HIV testing, RPR screen for syphilis. Check blood cultures given Utox Suggestive of polysubstance abuse, may be abusing Iv drugs. Acute respiratory distress may be a result of low GCS from alcohol intoxication versus aspiration versus IV sedation. Continue mechanical ventilation for now. ABG with a.m. labs. To assess potential for weaning. Chest x-ray without gross consolidation, pneumothorax or infiltrates. Screen with D-dimer, if positive will follow-up with CTA chest to evaluate for PE. Fall, aspiration and seizure precautions. Admitted to ICU GI ppx: Protonix 40mg NGT DVT ppx: lovenox 40mg s/c daily Attestations Medical Necessity Statement*: >2midnight admission anticipated for above defined care Critical Care Time: The high probability of a clinically significant, sudden or life threatening deterioration of the patient's [respiratory,cardiovascular,neurological] system(s) required my full and direct attention, intervention and personal management. The critical care time is as shown. 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
[2022-01-05 23:45] LABS: Add Urine Microscopic? NO; Charge for UA Resulting for Rev
[2022-01-05 23:57] LABS: Bilirubin Urine Neg (Negative); Blood Urine Neg (Negative); Glucose Urine UA Norm (Normal); Ketones Urine Negative (Negative); Leukocyte Esterase Urine Negative (Negative); Nitrate Urine Negative (Negative); Protein Urine Neg (Negative); Specific Gravity, Urine 1.005 (1.005-1.030); Urine Appearance Clear (CLEAR); Urine Color Yellow (Yellow); Urobilinogen Urine Norm (Negative); pH Urine 7 (5-7)
[2022-01-06] VITALS (99 sets, daily range): BP systolic 100–135; BP diastolic 67–102; PULSE 68–113; RESP 10–17; TEMP 36.7–37.3; O2SAT 89–100
[2022-01-06 00:01] LABS: D Dimer 1.22 ug/mIFEU (0-0.59)
[2022-01-06 00:02] LABS: Magnesium 2.2 mg/dL (1.7-2.3)
[2022-01-06 00:03] LABS: Lactic Sepsis W/Reflex 1.6 mmol/L (0.5-2.2)
[2022-01-06] MEDS: thiamine 100 mg Tablet PO ×2 (00:52→08:50)
[2022-01-06] MEDS: chlordiazePOXIDE 25 mg Capsule NG-TUBE ×2 (00:52→07:16)
[2022-01-06] MEDS: enoxaparin 40 mg/0.4 mL Syringe SUBCUT ×2 (01:27→23:27)
[2022-01-06] MEDS: sodium chloride 0.9% 1,000 ML 75 ML IV (01:33)
[2022-01-06] MEDS: chlorhexidine gluconate 4% Btl 118 mL 1 APPLIC TOPICAL (02:49)
[2022-01-06 06:22] LABS: Base Excess ABG 2.7 mmol/L (-2.0-2.0); Blood Gas Allen Test POS; Blood Gas Vent Mode CMV; HCO3 ABG 28.3 mmol/L (22-26); Oxygen Device VENT
[2022-01-06 06:23] LABS: Arterial Blood Gas Hematocrit 44.7 % (42-52); Blood Gas Sample Site R RAD; Blood Gas Sample Type ART
[2022-01-06] MEDS: propofol 1,000 MG/100 ML INJ 11.23 MG IV (06:51)
[2022-01-06 07:23] LABS: Basophils # 0.1 10^3/uL (0.0-0.1); Basophils % 0.5 %; Eosinophils # 0.1 10^3/uL (0.0-0.8); Eosinophils % 1.1 %; Hematocrit 41.8 % (42.0-52.0); Lymphocytes # 3.6 10^3/uL (0.8-4.8); Lymphocytes % 29.8 %; Mean Corpuscular HGB Conc 33.5 g/dL (30.0-36.0); Mean Corpuscular Volume 92.7 fl (80-94); Monocytes # 0.8 10^3/uL (0.2-0.9); Monocytes % 6.7 %; Neutrophils # 7.51 10^3/uL (1.8-7.7); Neutrophils % 61.7 %; Nucleated Red Blood Cells % 0 %; Platelet Count 285 10^3/cmm (130-400); Red Blood Count 4.51 10^6/uL (4.1-5.3); Red Cell Distribution Width 13.2 % (12.1-15.1); White Blood Count 12.2 10^3/uL (4.0-10.0)
[2022-01-06 07:41] LABS: Alanine Aminotransferase 21 U/L (0-41); Albumin Level 3.9 g/dL (3.5-5.2); Alkaline Phosphatase 150 IU/L (40-130); Anion Gap 12.9 (5-19); Aspartate Amino Transferase 18 U/L (0-40); Blood Urea Nitrogen 10 mg/dL (6-20); Calcium 8.1 mg/dL (8.5-10.5); Carbon Dioxide 26 mmol/L (22-29); Chloride 107 mmol/L (98-107); Globulin 2.3 g/dL (1.3-4.6); Glomerular Filtration Rate 97.8 mL/min (90-130); Glucose 90 mg/dL (65-115); Osmolality Calculated 293 mOsm/kg (285-295); Potassium 3.9 mmol/L (3.5-5.1); Sodium 142 mmol/L (136-145); Total Bilirubin 0.3 mg/dL (0.15-1.2); Total Protein 6.2 g/dL (6.6-8.7)
[2022-01-06 08:23] LABS: HIV 1 & 2 Antigen Non-Reactive (Non-Reactiv)
[2022-01-06 08:24] LABS: HIV 1 & 2 Antibody Non-Reactive (Non-Reactiv)
[2022-01-06 08:31] LABS: Hepatitis A Antibody IgM Non-Reactive (Nonreactive); Hepatitis B Core AB, Total Non-Reactive (Nonreactive); Hepatitis B Surface Antigen Non-Reactive (Nonreactive); Hepatitis C Virus Antibody Non-Reactive (Nonreactive)
[2022-01-06 08:40] LABS: Hepatitis B Surface AB < 3.5 (11.5-1000)
--- NOTE | 2022-01-06 08:40 | PC.NURSE ---
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 Contacted Dr. Peraza to clarify attending. Dr. Blanco states it will be his patient today. Updated Dr. Peraza on patient status. Plan is to d/c propofol and fentanyl and transition to precedex. Report of this given to Eboni Grider RN patient's primary nurse.
[2022-01-06] MEDS: folic acid 1 mg Tablet PO (08:49)
[2022-01-06] MEDS: multivitamin therapeutic Tablet 1 TAB PO (08:49)
[2022-01-06] MEDS: pantoprazole DR 40 mg Tablet NG-TUBE (08:49)
[2022-01-06] MEDS: dexmedeTOMIDine 0.9 % NaCL 400 MCG/100 ML PREMIX IV (08:58)
--- NOTE | 2022-01-06 09:02 | PC.NURSE ---
Dr. Peraza at bedside. Speaking at length with family regarding plan of care, goal for day, and plan to extubate today.
--- NOTE | 2022-01-06 09:03 | PC.NURSE ---
Instructions from Dr. Peraza to d/c NS at 75mL/hr.
[2022-01-06 09:05] LABS: Glucose Point of Care 95 mg/dL (70-110)
--- NOTE | 2022-01-06 09:05 | PC.NURSE ---
Mother and of children at bedside. Family reports recent gonorrhea infection. Drainage noted from urethra. Instruction from Karmen to obtain urine culture.
--- NOTE | 2022-01-06 09:13 | PC.NURSE ---
Contacted lab. Lab states urine culture was received 01/05/2022 and culture is pending.
--- NOTE | 2022-01-06 09:14 | PC.NURSE ---
Family reports patient is a drinker and might have withdrawal if stops drinking abruptly. Dr. Peraza notified of this update at 09:15.
[2022-01-06] MEDS: FUROsemide 10 mg/mL SDV 4mL 40 MG IVP (09:25)
--- NOTE | 2022-01-06 09:38 | PC.NURSE ---
Nurse Eboni Grider RN and Nurse Resident Ousmane at bedside. Obtaining urethral swab now for trichomonas.
[2022-01-06] MEDS: piperacillin-tazobactam 3.375 GM in sodium chloride 0.9% (plus) 50 ML IV ×2 (10:00→16:43)
--- NOTE | 2022-01-06 10:20 | PC.NURSE ---
Patient's sedation has been titrated off. Patient resting in bed. Responds to commands. RT has been to bedside. Only drip running is precedex at 0.1mcg/kg/hour. Patient tolerating well. Patient cooperative. Squeezes fingers and wiggles toes and lifts head off of pillow. Patient opens eyes to voice and does breath over the vent intermittently. Still waiting for sedative effects to wear off completely prior to extubation.
--- NOTE | 2022-01-06 10:36 | PC.NURSE ---
Clarified duplicate med orders for Thiamine, Librium, Folic Acid with Dr. Peraza. HCP instructed to hold until next scheduled dose.
[2022-01-06 10:47] LABS: Rapid Plasma Reagin Syphilis Nonreactive (Nonreactive)
--- NOTE | 2022-01-06 10:47 | PC.NURSE ---
1045 patient is resting in bed with precedex remaining at .1mcg/kg. Family member currently present. Patient is initiating breaths with fi02 @40% and currently saturation level of 96%. RR holding 15-17 per minute. Patient opens eyes with stimulation and is able to follow basic commands at this time.
--- NOTE | 2022-01-06 12:46 | PC.NURSE ---
Respiratory assessed patient and extubated at 1240. Patient was able to cooperate and tolerated well. Patient was placed on 2 liters Nasal Cannula. O2 sats are 94% and heart rate is 97. Patient is AOX4 and cooperating.
--- NOTE | 2022-01-06 16:42 | P.PN_ITS ---
Subjective Subjective: Patient was seen early this morning, family at bedside, he is currently on fentanyl, Precedex, he does open his eyes, he did have episodes of agitation overnight, but is much more calm, family at bedside tells me that recently he due to break-up with his has been much more withdrawn, much mor e irritable, his paranoia, severely depressed, has been drinking alcohol, last alcohol drink was last night, with methamphetamine use, no reported history of IV drug abuse, remains intubated, 40% 5 2, undergoing spontaneous breathing trial Patient was reexamined, undergoing spontaneous breathing trial, following all commands, squeezing my fingers, understands questioning, tolerating spontaneous breathing trial well, having intermittent episodes of apnea, plans on extubating later on this morning Patient was reexamined in the afternoon, he was successfully extubated to 2 L, alert to person, to place, following commands, on 2 L, normotensive, afebrile, no episodes of agitation, bit drowsy Vitals/I&O/Wt Last Vital Signs Temp 98.3 F 01/06/22 14:16 Pulse 100 01/06/22 16:00 Resp 16 01/06/22 14:16 BP 119/85 01/06/22 16:00 Pulse Ox 93 01/06/22 16:00 01/06/22 01/06/22 01/06/22 06:59 14:59 22:59 Intake Total 1170.527 / 1171.527 779.199 / 779.199 Output Total 625 / 625 1600 / 1600 Balance 545.527 / 546.527 -820.801 / -820.801 Weight last 48 hrs Weight 72.983 kg Weight 73.482 kg Weight 74.843 kg Physical Exam Const: COMMON NORMALS: no acute distress OTHER: Alert to person, to place Bowden catheter in place Follows commands Resp: COMMON NORMALS: normal respiratory effort, No retractions, No use of accessory muscles and clear to auscultation bilaterally AUSCULTATION: clear to auscultation bilaterally Cardio: COMMON NORMALS: regular rate, regular rhythm, S1 normal heart sound present and S2 normal heart sound present RATE: regular rate RHYTHM: regular rhythm HEART SOUNDS: S1 normal heart sound present and S2 normal heart sound present GI: COMMON NORMALS: Normal to inspection, nondistended, normoactive bowel sounds present, Soft to palpation and non-tender PALPATION: Yes Soft to palpation Extremity: COMMON NORMALS: no pedal edema Urinary Catheter Management: Bowden: Cath Placed During This Visit: yes Reason for Continuing Indwelling Catheter: Accurate Measurement of Urinary Output in Critically Ill Patients Urinary Catheter Date of Insertion: 01/05/22 Urinary Catheter Time of Insertion: 22:30 Data : 01/06/22 06:35 01/06/22 06:35 Micro: Microbiology 01/05/22 23:00 Chlamydia trachomatis (NELSON) - Final Urine Random Neisseria gonorrhoeae (NELSON) - Final 01/05/22 23:40 Gram Stain - Final Sputum - Endotracheal Tube Aspirate 01/06/22 00:48 Blood Culture - Preliminary Blood SPECIMEN COLLECTED 01/06/22 00:30 Blood Culture - Preliminary Blood SPECIMEN COLLECTED A&P Assessment and plan (1) Acute hyperactive delirium due to multiple etiologies: Status: Acute (2) Alcohol intoxication delirium: Status: Acute (3) Acute respiratory failure: Status: Acute (4) Polysubstance abuse: Status: Acute Plan Acute hyperactive delirium upon presentation, may be related to acute alcohol intoxication versus intoxication with methamphetamines. He was noted to be verbally and physically aggressive for which ketamine was administered in the ER. Status postextubation 01/06/2022 1 to 2 L Start Librium 25mg po q6h as needed as he remains a bit drowsy Continue Citic strep Stop fluids Thiamine 100 mg p.o. daily, folic acid 1 mg p.o. daily Differentials for delirium include side effect from ketamine, alcohol withdrawal Patient history of gonococcal urethritis in September 2021. We will additionally screen for other STDs which may contribute to altered mental status including fourth-generation HIV testing, RPR screen for syphilis. Check blood cultures given Utox Suggestive of polysubstance abuse, may be abusing Iv drugs. Acute respiratory distress may be a result of low GCS from alcohol intoxication versus aspiration versus IV sedation versus ketamine, currently on 2 L, continue to monitor respiratory status closely, Zosyn for aspiration coverage Monitor respiratory status, BiPAP as needed overnight ABG with a.m. labs. To assess potential for weaning. Chest x-ray without gross consolidation, pneumothorax or infiltrates. Elevated D-dimer, likely secondary to methamphetamine abuse, alcohol abuse, currently on 2 L, low likelihood of pulmonary embolism, History of suicidal ideation, suicide precautions, one-to-one Fall, aspiration and seizure precautions. Admitted to ICU GI ppx: Protonix 40mg DVT ppx: lovenox 40mg s/c daily Attestations Medical Necessity Statement*: Patient requires hospitalization due to hyperactive delirium, polysubstance abuse, methamphetamine abuse, critical care time spent over 1 hour Coding Level of Care Code Acute Night Coordinator for [facility] Diagnoses Acute hyperactive delirium due to multiple etiologies F05 Alcohol intoxication delirium F10.121 Acute respiratory failure J96.00 Polysubstance abuse F19.10
--- NOTE | 2022-01-06 18:18 | PC.NURSE ---
Patient remains on 0.1mcg/kg of precedex and remains calm and cooperative. Patient has tolerated sips and chips well with no dysphasia noted. Patient has been oriented to situation and plan of care. Patient is moving slowly in bed and expresses fatigue and pain upon repositioning only. O2 sats remain in the mid 90s on 2 liters with no abnormal lung sounds noted. Right hand has cuts and and slight swelling noted, client states it is from punching fence . Instruction has been given in regards to reporting anxiety/agitation for prn medication.
--- NOTE | 2022-01-06 19:03 | PC.NURSE ---
Addendum entered by Renata Briscoe RN 01/06/22 22:13: 80ml fent wasted 2nd verification Original Note: Wasted 80ml of Fentanyl wasted with Renata HARTMAN
[2022-01-07] VITALS (67 sets, daily range): BP systolic 95–140; BP diastolic 50–99; PULSE 66–101; RESP 9–25; TEMP 36.6–37.3; O2SAT 88–98
[2022-01-07] MEDS: piperacillin-tazobactam 3.375 GM in sodium chloride 0.9% (plus) 50 ML IV ×3 (00:34→18:41)
--- NOTE | 2022-01-07 05:57 | W.PM.NPUH&PS ---
Providers/Chief Complaint Admitting Physician: Dony Bautista MD Primary Care Provider: Radha Perez APRN Chief Complaint: MHE HPI NPU History of Present Illness Alden Urena is a 31 year old male who presented to the emergency department with the following report: Chief complaint: Psychiatric Symptoms Stated complaint: MHE Time Seen by Provider: 01/05/22 19:18 History of Present Illness: HPI: [31]yo patient w/ hx of depression BIBA for SI and auditory hallucination. Patient endorses SI to police. On arrival, the patient is AAOx3 and cooperative with my evaluation. No focal complaints of chest pain, shortness of breath, palpitations, N/V, focal GI/ complaints. Currently denies HI. No complaints of visual hallucinations. Onset: acute Duration: ongoing Location: home Severity: severe Associated symptoms: Deny chest pain, dyspnea, nausea, rash, palpitations or vomiting After receiving ketamine he had a episode where he ended up on floor and was being aggressive was taken to the ICU for evaluation and treatment of any sequela from that episode. He is on a 96-hour hold and will be transferred to the neuropsychiatric unit for definitive treatment of those issues. He presents today reporting he is not currently taking any medications and reports he was brought in by the police while intoxicated and that when he came in, he was given a medication which he did not react well to causing him to fall out of bed. He has never been psychiatrically hospitalized, is in the process of getting outpatient therapeutic services and has not been on psychiatric medication. He reports smoking a pack of cigarettes a day, alcohol daily, marijuana most days, methamphetamine but denies any other illicit drug use. He has been to rehab once a few years ago at [facility] but has had no drug and alcohol related charges. He reports depression with low mood beginning when he was an adult but denies suicidal ideation. He denies problems with anxiety or worrying. He began drinking daily and using methamphetamine almost a year ago when he and his split up. He reports he was sitting on the sidewalk after drinking and went into a store to get some water and was denied due to him not having a shirt on. He reports he may have made a statement about suicide by steelscope operator when he was there but has had no other instances like this. Psychiatric History: As above. Substance Abuse History: As above. Family History: He denies mental health issues on either side of the family, addiction issues on his father?s side of the family and denies suicide attempts or completions. Developmental History: He denies any issues with his or , learned to walk and talk and met his developmental milestones on time and required learning support and had an IEP but denies speech therapy, emotional support or special education classes. Psychosocial History: He reports his parents were together when he was born and remained together. He has 2 older brothers who are products of the same union. Neither of his parents have any additional children. He described his childhood as great and denies emotional, physical or sexual abuse. He denies CYS involvement or other traumatic events besides his breakup. He graduated high school and was trained in [employer]. He endorses being heterosexual with his longest relationship being 13 years. He has never been , has a 9 and 6 year old son and daughter and older step-son, has never been in the and endorses believing in god. His longest employment history is 10 years. He is currently unemployed. He currently lives in a house with his aunt. Legal History: He went to senior living once for 24 hours. Medical History: Denied. Meds NPU Home Medications Medication Instructions Recorded Confirmed Last Taken Type No Known Home Medications 01/05/22 01/05/22 Unknown History Allergies Allergy/AdvReac Type Severity Reaction Status Date / Time No Known Allergies Allergy Verified 12/30/21 15:15 PFS NPU PFS: Medical History Back pain Nephrolithiasis Psychiatric care Surgical History No pertinent past surgical history Social History Smoking and tobacco status: current every day smoker Alcohol intake: current Alcohol intake frequency: few times a month Marital status: Single Current occupational status: unemployed History of recent travel: No Mental Status Exam MSE Comments: This is a well nourished, well developed white male in hospital scrubs with limited grooming and adequate eye contact. No abnormal movements. Cooperative with exam in no acute distress. Speech was normal rate and volume. Mood described as fine, affect is congruent. Thought process, organized. Thought content: patient denies suicidal or homicidal ideation, no delusions noted or reported and denies any auditory or visual hallucinations. Attention and concentration are intact and memory appeared reliable but none were formally tested. He is alert and oriented three times. Insight and judgment are fair. Impulse control is limited. Vitals/I&O/Wt Last Vital Signs Temp 98.6 F 01/06/22 22:00 Pulse 81 01/07/22 04:45 Resp 16 01/07/22 04:45 BP 116/76 01/07/22 04:45 Pulse Ox 93 01/07/22 04:45 O2 Del Method 01/07/22 01:45 O2 Flow Rate 3 01/07/22 01:45 FiO2 40 01/07/22 00:00 01/06/22 01/06/22 01/07/22 14:59 22:59 06:59 Intake Total 779.199 / 779.199 50 / 829.199 550 / 1379.199 Output Total 1600 / 1600 1150 / 2750 75 / 2825 Balance -820.801 / -820.801 -1100 / -1920.801 475 / -1445.801 Weight last 48 hrs Weight 72.983 kg Weight 73.482 kg Weight 74.843 kg Physical Exam Urinary Catheter Management: Bowden: Cath Placed During This Visit: yes Reason for Continuing Indwelling Catheter: Other Urinary Catheter Date of Insertion: 01/05/22 Urinary Catheter Time of Insertion: 22:30 Data NPU : 01/08/22 03:35 01/08/22 03:35 Micro: Microbiology 01/06/22 00:48 Blood Culture - Preliminary Blood NEGATIVE TO DATE 01/06/22 00:30 Blood Culture - Preliminary Blood NEGATIVE TO DATE 01/05/22 23:00 Chlamydia trachomatis (NELSON) - Final Urine Random Neisseria gonorrhoeae (NELSON) - Final 01/05/22 23:40 Gram Stain - Final Sputum - Endotracheal Tube Aspirate Microbiology 01/06/22 00:48 Blood Blood Culture - Preliminary NEGATIVE TO DATE 01/06/22 00:30 Blood Blood Culture - Preliminary NEGATIVE TO DATE 01/05/22 23:00 Urine Random Chlamydia trachomatis (NELSON) - Final 01/05/22 23:00 Urine Random Neisseria gonorrhoeae (NELSON) - Final 01/05/22 23:40 Sputum - Endotracheal Tube Aspirate Gram Stain - Final A&P Assessment and plan (1) Pulmonary embolism: Status: Acute (2) Bilateral pneumonia: Status: Acute (3) Rhabdomyolysis: Status: Acute (4) Acute hyperactive delirium due to multiple etiologies: Status: Acute (5) Polysubstance abuse: Status: Acute (6) Acute respiratory failure: Status: Acute (7) Alcohol intoxication delirium: Status: Acute (8) History of suicidal ideation: Status: Acute (9) Aggressive behavior: Status: Acute (10) Nicotine dependence, cigarettes, with unspecified nicotine-induced disorders: Status: Acute (11) Partner relational problem: Status: Acute (12) Adjustment disorder with mixed disturbance of emotions and conduct: Status: Acute Plan This is 31 year old male with a recent history of interpersonal relational problems with his significant other and alcohol use with genetic loading for addiction issues who presents after getting intoxicated and possibly making a suicidal statement as a joke to the police denying suicidal ideation and wanting to return home to his children. 1. Continue current medications 2. transfer to neuropsychiatric unit when medically stable then: 3. Encourage individual, group and milieu therapy 4. Continue q-15 minute check for safety 5. Recommend sober living treatment at the highest level of care to which the patient is willing to commit. Attestations NPU Medical Necessity Statement*: Inpatient hospitalization is medically necessary and the clinically appropriate intervention at this time. We will monitor medications and make changes as indicated. Patient will be in the hospital for over two midnights. Likely length of stay is 2-4 days. Coding Level of Care Code Acute School Bus Dispatcher for Maryan Wilson Diagnoses Pulmonary embolism I26.99 Bilateral pneumonia J18.9 Rhabdomyolysis M62.82 Acute hyperactive delirium due to multiple etiologies F05 Polysubstance abuse F19.10 Acute respiratory failure J96.00 Alcohol intoxication delirium F10.121 History of suicidal ideation Z86.59 Aggressive behavior R46.89 Nicotine dependence, cigarettes, with unspecified nicotine-induced disorders F17.219 Partner relational problem Z63.0 Adjustment disorder with mixed disturbance of emotions and conduct F43.25
[2022-01-07 06:18] LABS: Basophils # 0.1 10^3/uL (0.0-0.1); Basophils % 0.6 %; Eosinophils # 0.2 10^3/uL (0.0-0.8); Eosinophils % 1.4 %; Hematocrit 53.5 % (42.0-52.0); Hemoglobin 17.3 g/dL (11.7-16.6); Lymphocytes # 2.5 10^3/uL (0.8-4.8); Lymphocytes % 14.9 %; Mean Corpuscular HGB Conc 32.3 g/dL (30.0-36.0); Mean Corpuscular Hemoglobin 31.3 pg (28.0-34.0); Mean Corpuscular Volume 96.9 fl (80-94); Mean Platelet Volume 8.8 fL (7.4-10.4); Monocytes # 1.1 10^3/uL (0.2-0.9); Monocytes % 6.6 %; Neutrophils # 12.96 10^3/uL (1.8-7.7); Neutrophils % 76.1 %; Nucleated Red Blood Cells % 0 %; Platelet Count 283 10^3/cmm (130-400); Red Blood Count 5.52 10^6/uL (4.1-5.3); Red Cell Distribution Width 13.1 % (12.1-15.1)
[2022-01-07 06:50] LABS: Alanine Aminotransferase 41 U/L (0-41); Alkaline Phosphatase 193 IU/L (40-130); Anion Gap 23.2 (5-19); Aspartate Amino Transferase 73 U/L (0-40); Blood Urea Nitrogen 19 mg/dL (6-20); Calcium 9.1 mg/dL (8.5-10.5); Carbon Dioxide 23 mmol/L (22-29); Chloride 96 mmol/L (98-107); Globulin 3.4 g/dL (1.3-4.6); Glomerular Filtration Rate 77.6 mL/min (90-130); Glucose 76 mg/dL (65-115); Magnesium 2.2 mg/dL (1.7-2.3); Osmolality Calculated 287 mOsm/kg (285-295); Phosphorus 3.5 mg/dL (2.5-4.5); Potassium 4.2 mmol/L (3.5-5.1); Sodium 138 mmol/L (136-145); Total Bilirubin 0.9 mg/dL (0.15-1.2); Total Protein 7.4 g/dL (6.6-8.7)
--- NOTE | 2022-01-07 07:43 | XR_ITS ---
WS: [id number] Exam: XR chest 1V portable [id number] Date/Time of Exam: 01/07/2022 7:45 AM Reason For Exam: sob Comparison 01/05/2022. Lungs are clear and fully expanded. Normal cardiomediastinal silhouette and regional bony elements. N o pleural effusions. Monitoring leads superimpose the chest. ET tube has been removed since previous study. XR/XR chest 1V portable [id number] IMPRESSION: 1. Negative chest.
[2022-01-07 08:25] LABS: C Reactive Protein 107.2 mg/L (0.0-4.9)
[2022-01-07 08:33] LABS: Procalcitonin 0.13 ng/mL (0-0.5)
[2022-01-07] MEDS: thiamine 100 mg Tablet PO (08:52)
[2022-01-07] MEDS: multivitamin therapeutic Tablet 1 TAB PO (08:52)
[2022-01-07] MEDS: pantoprazole DR 40 mg Tablet NG-TUBE (08:52)
[2022-01-07] MEDS: folic acid 1 mg Tablet PO (08:53)
--- NOTE | 2022-01-07 10:21 | PC.NURSE ---
Patient remains calm and compliant this AM. Reports sleeping well but complains of fatigue and pain in lower back/bottom. Bed was adjusted and air valves closed. Patient remains sleeping most of the morning with some periods of apnea observed. Patient remains on 2l nasal cannula.
--- NOTE | 2022-01-07 10:34 | USCV_ITS ---
Alden Urena Age: 31 Gender: M : 1990 Exam Date: 01/07/2022 11:01 Ordering Phys: Estuardo Peraza MD Technologist: Harshil Jaramillo Exam Location: [facility] [place] Indication: endocarditis, IV drug use BP: 111 / 76 HR: 69 Rhythm: Sinus Technical Quality: Adequate MEASUREMENTS (Male / Female) Normal Values 2D ECHO LV Diastolic Diameter PLAX 3.2 cm 4.2 - 5.9 / 3.9 - 5.3 cm LV Systolic Diameter PLAX 2.2 cm IVS Diastolic Thickness 1.0 cm 0.6 - 1.0 / 0.6 - 0.9 cm IVS Systolic Thickness 0.8 cm LVPW Diastolic Thickness 0.9 cm 0.6 - 1.0 / 0.6 - 0.9 cm LVPW Systolic Thickness 1.1 cm LVOT Diameter 2.1 cm LV Ejection Fraction 2D Teich 60.8 % LV Ejection Fraction MOD 2C 69.5 % LV Ejection Fraction 2C AL 71.0 % LA Diameter 3.3 cm M-MODE LV Diastolic Diameter MM 5.0 cm 4.2 - 5.9 / 3.9 - 5.3 cm LV Systolic Diameter MM 3.0 cm LV Ejection Fraction MM Teich 70.4 % IVS Diastolic Thickness MM 0.9 cm 0.6 - 1.0 / 0.6 - 0.9 cm IVS Systolic Thickness MM 1.5 cm LVPW Diastolic Thickness MM 1.1 cm 0.6 - 1.0 / 0.6 - 0.9 cm LVPW Systolic Thickness MM 1.8 cm RV Diastolic Diameter MM 1.4 cm Aortic Annulus Diameter 3.1 cm LA Ao Ratio MM 1.2 MV E Point Septal Separation 1.1 cm DOPPLER AV Peak Velocity 126.0 cm/s LVOT Peak Velocity 103.0 cm/s AV Area Cont Eq vti 2.8 cm squared AV Area Cont Eq pk 2.9 cm squared MV Area PHT 5.0 cm squared Mitral E to A Ratio 1.1 MV E' Velocity 45.0 cm/s Mitral E to MV E' Ratio 6.0 Mitral E to LV E' Lateral Ratio 5.5 Mitral E to LV E' Septal Ratio 6.5 TR Peak Velocity 196.5 cm/s TR Peak Gradient 15.4 mmHg TV Peak E Velocity 79.0 cm/s Right Atrial Pressure 3.0 mmHg Pulmonary Artery Systolic Pressu 18.4 mmHg FINDINGS Left Ventricle Normal left ventricular size and systolic function, EF 66 %. No regional wall motion abnormalities. Right Ventricle The right ventricle is normal in size and function. Right Atrium The right atrium is normal in size. Left Atrium The left atrium is normal in size. Mitral Valve No gross abnormalities noted Aortic Valve No gross abnormalities noted Tricuspid Valve Trace tricuspid valve regurgitation. Pulmonic Valve Pulmonic valve not well visualized. Pericardium Normal pericardium without effusion. Aorta Normal ascending aorta dimension. IVC Normal inferior vena cava. CONCLUSIONS Normal left ventricular size and systolic function, EF 66 %. No regional wall motion abnormalities. Trace tricuspid valve regurgitation. There is no pericardial effusion. No obvious intracardiac masses Technically difficult study because of the poor ultrasonic window. Dr Susanne Latif MD FAC (Electronically Signed) Final Date: 07 January 2022 19:25 S
[2022-01-07 10:48] LABS: RPR w(Moniotor) w/REFL Titer NON-REACTIVE (NON-REACTIVE)
--- NOTE | 2022-01-07 13:16 | PC.NURSE ---
Patient remains off precedex, Sats 95% on room air, advanced to regular diet and tolerating well. Well contact Hospitalist for transfer to NPU.
--- NOTE | 2022-01-07 15:05 | PC.NURSE ---
Patient ambulated to chair with standby assistance. Client sat in chair for around 10 minutes. Reported he was very tired and requested to return to the bed.
--- NOTE | 2022-01-07 15:54 | US_ITS ---
WS: [id number] RIGHT UPPER QUADRANT ULTRASOUND HISTORY: Increased liver enzymes. COMPARISON: None available. Liver: 15.3 cm in length. Normal size liver. No bile duct dilatation or mass. Portal Vein: Normal hepatopetal flow with monophasic waveform. Gallbladder: Normally distended gallbladder with mild gallbladder wall thickening measuring up to 6 m m. No pericholecystic fluid. No stones or sludge. CBD: 0.4 cm Pancreas: Normal size and echogenicity. Right kidney: 11.4 cm in length. Normal size and echogenicity. No hydronephrosis or mass. Aorta and IVC: Unremarkable abdominal aorta and IVC. No ascites. US/US abdomen limited [id number] IMPRESSION: 1. No cholelithiasis. 2. Mild diffuse gallbladder wall thickening may be due to hepatocellular disea se. There is no pericholecystic fluid or hydrops to suggest acute cholecystitis .
--- NOTE | 2022-01-07 15:55 | P.PN_ITS ---
Subjective Subjective: Patient was seen this morning, he is alert and oriented x3, afebrile over night, does report a history of IV drug abuse, no nausea, no vomiting, no chest pain, does report generalized weakness Vitals/I&O/Wt Last Vital Signs Temp 97.9 F 01/07/22 08:31 Pulse 72 01/07/22 14:24 Resp 18 01/07/22 14:00 BP 122/67 01/07/22 14:00 Pulse Ox 96 01/07/22 14:00 O2 Del Method 01/07/22 12:00 O2 Flow Rate 3 01/07/22 12:00 FiO2 40 01/07/22 00:00 01/07/22 01/07/22 01/07/22 06:59 14:59 22:59 Intake Total 550 / 1379.199 850 / 850 Output Total 225 / 2975 Balance 325 / -1595.801 850 / 850 Weight last 48 hrs Weight 72.983 kg Weight 73.482 kg Weight 74.843 kg Physical Exam Const: COMMON NORMALS: no acute distress and patient oriented x3 Resp: COMMON NORMALS: normal respiratory effort, No retractions, No use of accessory muscles and clear to auscultation bilaterally AUSCULTATION: clear to auscultation bilaterally Cardio: COMMON NORMALS: regular rate, regular rhythm, S1 normal heart sound present and S2 normal heart sound present RATE: regular rate RHYTHM: regular rhythm HEART SOUNDS: S1 normal heart sound present and S2 normal heart sound present GI: COMMON NORMALS: Normal to inspection, nondistended, normoactive bowel sounds present and non-tender Extremity: COMMON NORMALS: no pedal edema Neuro: COMMON NORMALS: patient oriented x3 Psych: COMMON NORMALS: mental status grossly normal Urinary Catheter Management: Bowden: Cath Placed During This Visit: yes Reason for Continuing Indwelling Catheter: Accurate Measurement of Urinary Output in Critically Ill Patients Urinary Catheter Date of Insertion: 01/05/22 Urinary Catheter Time of Insertion: 22:30 Data : 01/07/22 05:45 01/07/22 05:45 Micro: Microbiology 01/05/22 23:40 Gram Stain - Final Sputum - Endotracheal Tube Aspirate Sputum Culture - Preliminary 01/05/22 23:00 Urine Culture - Final Urine Catheterized 01/06/22 00:48 Blood Culture - Preliminary Blood NEGATIVE TO DATE 01/06/22 00:30 Blood Culture - Preliminary Blood NEGATIVE TO DATE 01/05/22 23:00 Chlamydia trachomatis (NELSON) - Final Urine Random Neisseria gonorrhoeae (NELSON) - Final A&P Assessment and plan (1) Acute hyperactive delirium due to multiple etiologies: Status: Acute (2) Alcohol intoxication delirium: Status: Acute (3) Acute respiratory failure: Status: Acute (4) Polysubstance abuse: Status: Acute Plan Acute hyperactive delirium upon presentation, may be related to acute alcohol intoxication versus intoxication with methamphetamines. He was noted to be verbally and physically aggressive for which ketamine was administered in the ER. Status postextubation 01/06/2022 1 to 2 L On 3 L, elevated dimer, elevated white count, will do CT angiogram of chest to evaluate for possible pulmonary emboli, BNP consider Lasix Start Librium 25mg po q6h as needed as he remains a bit drowsy Stop fluids Thiamine 100 mg p.o. daily, folic acid 1 mg p.o. daily Differentials for delirium include side effect from ketamine, alcohol withdrawal Patient history of gonococcal urethritis in September 2021. We will additionally screen for other STDs which may contribute to altered mental status including fourth-generation HIV testing, RPR screen for syphilis. Check blood cultures given Utox Suggestive of polysubstance abuse, reports IV drug abuse, ESR, CRP, Pro-Prabhu, cardiac echo Has elevated alk phos, transaminitis, right upper quadrant ultrasound Acute respiratory distress may be a result of low GCS from alcohol intoxication versus aspiration versus IV sedation versus ketamine, currently on 3 L, continue to monitor respiratory status closely, Zosyn for aspiration coverage Monitor respiratory status, BiPAP as needed overnight Chest x-ray without gross consolidation, pneumothorax or infiltrates. History of suicidal ideation, suicide precautions, one-to-one Fall, aspiration and seizure precautions. Admitted to ICU GI ppx: Protonix 40mg DVT ppx: lovenox 40mg s/c daily Attestations Medical Necessity Statement*: Patient requires hospitalization due to delirium, acute respiratory failure, now with persistent hypoxia, leukocytosis, Coding Level of Care Code Acute Flatwork Folder for Maryan Wilson Diagnoses Acute hyperactive delirium due to multiple etiologies F05 Alcohol intoxication delirium F10.121 Acute respiratory failure J96.00 Polysubstance abuse F19.10
--- NOTE | 2022-01-07 15:57 | CTR_ITS ---
PROCEDURE INFORMATION: Exam: CTA Chest With Contrast Exam date and time: 01/07/2022 5:58 PM Age: 31 years old Clinical indication: Abnormal findings; Abnormal diagnostic tests; Elevated d-dimer; Cough and shortness of breath; Additional info: Elevated d dimer, hypoxia, a TECHNIQUE: Imaging protocol: Computed tomographic angiography of the chest with contrast. 3D rendering (Not supervised by radiologist): MIP and/or 3D reconstructed images were created by the technologist. Radiation optimization: All CT scans at this facility use at least one of these dose optimization techniques: automated exposure control; mA and/or kV adjustment per patient size (includes targeted exams where dose is matched to clinical indication); or iterative reconstruction. Contrast material: OMNI 350; Contrast volume: 95 ml; Contrast route: INTRAVENOUS (IV); COMPARISON: CR XR chest 1V portable [id number] 01/07/2022 7:48 AM RADIATION DOSE METRICS: Total DLP (mGy-cm): 317.42 FINDINGS: Pulmonary arteries: There are occlusive and nonocclusive segmental and subsegmental pulmonary arterial filling defects in the right middle lobe. Aorta: The aorta is unremarkable. There is no aneurysm. Lungs: There is multifocal ill-defined ground-glass opacity in the right lower lobe. There is a noncalcified pulmonary nodule in the right lower lobe visible on series 6, image 28 measuring 7 mm. There is subsegmental atelectasis in the lung bases. There is a calcified granuloma in the left upper lobe. There is bronchial wall thickening and bronchial mucus plugging in both lower lobes. Pleural spaces: There is no pleural effusion or pneumothorax. Heart: Heart size is normal. There is no pericardial effusion. Heart RV/LV ratio: RV/LV ratio is normal (less than 1) no contrast reflux into the IVC. Lymph nodes: There is no mediastinal or hilar lymphadenopathy. Intraperitoneal space: Visible structures in the upper abdomen are unremarkable. Bones/joints: Bones are unremarkable. Soft tissues: The extrathoracic soft tissues are unremarkable. CT/CT angio chest PE protcl [id number] IMPRESSION: 1. Right middle lobe pulmonary embolism. Low clot burden. No sign of right ventricular strain. 2. Bilateral lower lobe bronchitis with probable bronchopneumonia on the right. 3. 7 mm right lower lobe pulmonary nodule.For patients at low risk (minimal or absent history of smoking and of other known risk factors), recommend CT Chest at 6-12 months, then consider CT Chest at 18-24 months. For patients at high risk (history of smoking or of other known risk factors), recommend CT Chest at 6-12 months, then CT Chest at 18-24 months. (Reference: Wilmer) REFERENCES: Wilmer Durant et al. Guidelines for Management of Incidental Pulmonary Nodules Detected on CT Images: From the Fleischner Society 2017. Radiology. 2017;284(1):228-243.
[2022-01-07 16:37] LABS: Erythrocyte Sedimentation Rate 7 mm/hr (0-10)
[2022-01-07 17:01] LABS: NT Pro B Type Natriuretic Pept 5 pg/mL (0-125)
[2022-01-07] MEDS: iohexol 350 mg/mL 100 mL Btl IV (18:06)
--- NOTE | 2022-01-07 19:02 | USCV_ITS ---
RomelАлександр galvinin Age: 31 Gender: M : 1990 Exam Date: 01/08/2022 02:02 Ordering Phys: Estuardo Peraza MD Technologist: BENI Exam Location: [facility] [place] Indication: current pulminary embolism HISTORY: No lower extremity edema or erythema. No lower extremity pain. No history of DVT per patient. PROCEDURES: Venous duplex imaging was performed in bilateral lower extremities. The venous duplex Doppler examination of both lower extremities was performed in the standard fashion. The following venous structures were evaluated: common femoral vein, profunda vein, proximal portion of the greater saphenous vein, superficial femoral vein, and the popliteal vein. In addition, the posterior tibial and peroneal veins were evaluated. FINDINGS: Normal 2-D Doppler and augmentation and compressibility throughout the lower extremity venous structures. Additional imaging through the proximal calf veins also reveals no thrombus. Limited evaluation of the greater saphenous vein is patent with no thrombus. CONCLUSIONS No DVT bilateral lower extremities. Dr. Bouchra Terry DO (Electronically Signed) Final Date: 08 January 2022 08:45 S
[2022-01-07] MEDS: vancomycin 1,000 MG in sodium chloride 0.9% 250 ML 250 MG IV (19:35)
[2022-01-07 20:04] LABS: Platelet Count 313 10^3/cmm (130-400)
[2022-01-07 21:25] LABS: Glucose Point of Care 132 mg/dL (70-110)
[2022-01-07] MEDS: heparin drip 25,000 UNIT/500 ML PREMIX 20.44 UNIT IV (21:29)
[2022-01-07 21:36] LABS: Partial Thromboplastin Time 25.8 SECONDS (23.9-36.7)
[2022-01-07] MEDS: heparin 5,000 unit/mL INJ 1 mL IV (21:44)
[2022-01-08] VITALS (70 sets, daily range): BP systolic 90–169; BP diastolic 57–105; PULSE 54–105; RESP 10–23; TEMP 36.6–37.1; O2SAT 84–99
[2022-01-08] MEDS: benzocaine 20% 7 gm 1 APPLIC MUCOUS MEM (00:32)
[2022-01-08] MEDS: piperacillin-tazobactam 3.375 GM in sodium chloride 0.9% (plus) 50 ML IV ×2 (00:32→08:24)
[2022-01-08 03:39] LABS: Glucose Point of Care 121 mg/dL (70-110)
[2022-01-08 03:42] LABS: Basophils # 0.1 10^3/uL (0.0-0.1); Basophils % 0.4 %; Eosinophils # 0.3 10^3/uL (0.0-0.8); Eosinophils % 2.5 %; Hematocrit 48.4 % (42.0-52.0); Hemoglobin 16.6 g/dL (11.7-16.6); Lymphocytes # 2.8 10^3/uL (0.8-4.8); Lymphocytes % 24.2 %; Mean Corpuscular HGB Conc 34.3 g/dL (30.0-36.0); Mean Corpuscular Hemoglobin 31.7 pg (28.0-34.0); Mean Corpuscular Volume 92.4 fl (80-94); Mean Platelet Volume 8.6 fL (7.4-10.4); Monocytes # 0.7 10^3/uL (0.2-0.9); Monocytes % 6.4 %; Neutrophils # 7.63 10^3/uL (1.8-7.7); Neutrophils % 66.1 %; Nucleated Red Blood Cells % 0 %; Platelet Count 289 10^3/cmm (130-400); Red Blood Count 5.24 10^6/uL (4.1-5.3); Red Cell Distribution Width 12.6 % (12.1-15.1); White Blood Count 11.6 10^3/uL (4.0-10.0)
[2022-01-08 03:54] LABS: INR 0.88 (0.8-1.2)
[2022-01-08] MEDS: heparin 5,000 unit/mL INJ 1 mL IV (04:09)
[2022-01-08 04:11] LABS: NT Pro B Type Natriuretic Pept 5 pg/mL (0-125)
[2022-01-08 04:22] LABS: Alanine Aminotransferase 34 U/L (0-41); Albumin Level 3.6 g/dL (3.5-5.2); Alkaline Phosphatase 148 IU/L (40-130); Blood Urea Nitrogen 13 mg/dL (6-20); C Reactive Protein 59.1 mg/L (0.0-4.9); Calcium 8.5 mg/dL (8.5-10.5); Carbon Dioxide 22 mmol/L (22-29); Chloride 96 mmol/L (98-107); Glomerular Filtration Rate 130.7 mL/min (90-130); Glucose 127 mg/dL (65-115); Osmolality Calculated 274 mOsm/kg (285-295); Phosphorus 2.4 mg/dL (2.5-4.5); Sodium 131 mmol/L (136-145); Total Bilirubin 0.4 mg/dL (0.15-1.2); Total Protein 6.6 g/dL (6.6-8.7)
[2022-01-08 04:28] LABS: Anion Gap 16.9 (5-19); Aspartate Amino Transferase 64 U/L (0-40); Potassium 3.9 mmol/L (3.5-5.1)
[2022-01-08 05:13] LABS: Creatine Phosphokinase 3415 U/L (39-308)
[2022-01-08] MEDS: vancomycin 1,000 MG in sodium chloride 0.9% 250 ML 250 MG IV (07:07)
[2022-01-08] MEDS: folic acid 1 mg Tablet PO (08:10)
[2022-01-08] MEDS: multivitamin therapeutic Tablet 1 TAB PO (08:10)
[2022-01-08] MEDS: pantoprazole DR 40 mg Tablet NG-TUBE (08:10)
[2022-01-08] MEDS: thiamine 100 mg Tablet PO (08:11)
[2022-01-08] MEDS: sodium chloride 0.9% 1,000 ML 75 ML IV (08:23)
[2022-01-08] MEDS: apixaban 5 mg Tablet 10 MG PO ×2 (08:23→20:22)
--- NOTE | 2022-01-08 08:57 | PC.NURSE ---
Ambulated approximately 300ft with pt. Tolerated well. No issues noted. PT up in chair, CLWR and pt in sight of nurse
--- NOTE | 2022-01-08 09:27 | PC.NURSE ---
Sitter outside room to relieve nurse. Report given.
--- NOTE | 2022-01-08 10:48 | PC.NURSE ---
Pt worked with OT, walking in [place]. Spoke on the phone with family while up. Pt tearful after returning to room, sitting up in chair. Will monitor.
--- NOTE | 2022-01-08 12:58 | P.PN_ITS ---
Subjective Subjective: Patient was seen this morning, I discussed with him the CT scan findings, findings of right middle lobe pulmonary embolism, requirements of blood thinner, he also has bronchopneumonia on antibiotics, he feels better this morning, has much more energy, had breakfast, no nausea, no vomiting, no chest pain, he also is receiving fluids for his rhabdo, encourage oral hydration Vitals/I&O/Wt Last Vital Signs Temp 97.9 F 01/08/22 08:00 Pulse 66 01/08/22 12:00 Resp 14 01/08/22 12:00 BP 131/69 01/08/22 12:00 Pulse Ox 96 01/08/22 12:00 O2 Del Method 01/07/22 21:30 O2 Flow Rate 3 01/07/22 12:00 FiO2 40 01/07/22 00:00 01/07/22 01/08/22 01/08/22 22:59 06:59 14:59 Intake Total 360.199 / 1210.199 183.201 / 0561.826 3382.820 / 1485.820 Output Total 500 / 500 650 / 1150 550 / 550 Balance -139.801 / 710.199 -466.799 / 243.400 935.820 / 935.820 Weight last 48 hrs Weight 72.393 kg Physical Exam Const: COMMON NORMALS: no acute distress and patient oriented x3 Resp: COMMON NORMALS: normal respiratory effort, No retractions, No use of accessory muscles and clear to auscultation bilaterally AUSCULTATION: clear to auscultation bilaterally Cardio: COMMON NORMALS: regular rate, regular rhythm, S1 normal heart sound present and S2 normal heart sound present RATE: regular rate RHYTHM: regular rhythm HEART SOUNDS: S1 normal heart sound present and S2 normal heart sound present GI: COMMON NORMALS: Normal to inspection, nondistended, normoactive bowel sounds present and non-tender Extremity: COMMON NORMALS: no pedal edema Neuro: COMMON NORMALS: patient oriented x3 Psych: COMMON NORMALS: mental status grossly normal Urinary Catheter Management: Bowden: Cath Placed During This Visit: yes, but has since been removed by the nurse Reason for Continuing Indwelling Catheter: Decision to DC Catheter Urinary Catheter Date of Insertion: 01/05/22 Urinary Catheter Time of Insertion: 22:30 Date Urinary Catheter Removed: 07/27/22 Time Urinary Catheter Discontinued: 18:28 Data : 01/08/22 03:35 01/08/22 03:35 Micro: Microbiology 01/05/22 23:40 Gram Stain - Final Sputum - Endotracheal Tube Aspirate Sputum Culture - Final 01/05/22 23:00 Urine Culture - Final Urine Catheterized A&P Assessment and plan (1) Rhabdomyolysis: Status: Acute (2) Acute hyperactive delirium due to multiple etiologies: Status: Acute (3) Alcohol intoxication delirium: Status: Acute (4) Acute respiratory failure: Status: Acute (5) Polysubstance abuse: Status: Acute (6) Bilateral pneumonia: Status: Acute (7) Pulmonary embolism: Status: Acute Plan Acute hyperactive delirium upon presentation, may be related to acute alcohol intoxication versus intoxication with methamphetamines. He was noted to be verbally and physically aggressive for which ketamine was administered in the ER. Status postextubation 01/06/2022 1 to 2 L On 3 L, elevated dimer, elevated white count, CT angiogram positive for right middle lobe pulm embolism, started on heparin drip, tolerated well, switch to Eliquis, tolerating it well, bilateral lower lobe pneumonia, initially managed with broad-spectrum antibiotic therapy vancomycin, Zosyn, remains afebrile, CRP 59, Pro-Prabhu within normal limits, white blood cell 11.6, transition to Augmentin Has evidence of rhabdomyolysis, CPK over 3000 continue IV fluids, encourage p.o. hydration, once he leaves the neuropsychiatric unit Thiamine 100 mg p.o. daily, folic acid 1 mg p.o. daily Differentials for delirium include side effect from ketamine, alcohol withdrawal, rhabdo, pneumonia, pulmonary embolism Patient history of gonococcal urethritis in September 2021. We will additionally screen for other STDs which may contribute to altered mental status including fourth-generation HIV testing, RPR screen for syphilis. Check blood cultures given Utox Suggestive of polysubstance abuse, Cardiac echocardiogram no significant valvular abnormalities Of the abdomen no cholelithiasis, mild diffuse gallbladder wall thickening Acute respiratory distress may be a result of low GCS from alcohol intoxication versus aspiration versus IV sedation versus ketamine, currently on room air, continue Augmentin Monitor respiratory status, BiPAP as needed overnight Chest x-ray without gross consolidation, pneumothorax or infiltrates. History of suicidal ideation, suicide precautions, one-to-one Fall, aspiration and seizure precautions. Plan to move to neuropsychiatric unit GI ppx: Protonix 40mg DVT ppx: lovenox 40mg s/c daily Attestations Medical Necessity Statement*: Patient requires admission for pneumonia, pulm embolism, rhabdomyolysis, will be moving to the neuropsychiatric unit, critical care time spent over 45 minutes Coding Level of Care Code Acute Refrigeration Repair Supervisor for [facility] Diagnoses Rhabdomyolysis M62.82 Acute hyperactive delirium due to multiple etiologies F05 Alcohol intoxication delirium F10.121 Acute respiratory failure J96.00 Polysubstance abuse F19.10 Bilateral pneumonia J18.9 Pulmonary embolism I26.99
--- NOTE | 2022-01-08 14:24 | PC.PT ---
Physical therapy evaluation deferred/canceled until further orders due to patient ambulating independently and safely without assistive devices in ICU greater than 300 foot distances, patient independent with transfers as well, no PT needs noted by occupational therapist, who did evaluate him this morning, ICU nursing staff concur with this opinion, no further attempts to be made until new orders received.
[2022-01-08 15:02] LABS: Creatine Phosphokinase 3594 U/L (39-308)
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
--- NOTE | 2022-01-08 16:39 | PC.NURSE ---
Report called to RN in NPU. PIV's removed. Will tx to room 131-1.
[2022-01-08] MEDS: amoxicillin-clav 875-125 mg Tablet 1 TAB PO (17:08)
--- NOTE | 2022-01-08 17:21 | PC.NURSE ---
Pt transferred to NPU per staff
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
[2022-01-09 06:00] VITALS: BP 114/78; PULSE 75; RESP 17; TEMP 36.4; O2SAT 98
[2022-01-09 07:47] LABS: Basophils # 0.1 10^3/uL (0.0-0.1); Basophils % 0.5 %; Eosinophils # 0.3 10^3/uL (0.0-0.8); Eosinophils % 2.8 %; Hematocrit 47.2 % (42.0-52.0); Hemoglobin 16.1 g/dL (11.7-16.6); Lymphocytes # 1.9 10^3/uL (0.8-4.8); Lymphocytes % 19.8 %; Mean Corpuscular HGB Conc 34.1 g/dL (30.0-36.0); Mean Corpuscular Hemoglobin 31.2 pg (28.0-34.0); Mean Corpuscular Volume 91.5 fl (80-94); Monocytes # 0.6 10^3/uL (0.2-0.9); Monocytes % 6.5 %; Neutrophils # 6.69 10^3/uL (1.8-7.7); Neutrophils % 70.2 %; Nucleated Red Blood Cells % 0 %; Platelet Count 323 10^3/cmm (130-400); Red Blood Count 5.16 10^6/uL (4.1-5.3); Red Cell Distribution Width 12.6 % (12.1-15.1); White Blood Count 9.5 10^3/uL (4.0-10.0)
[2022-01-09 08:16] LABS: Alanine Aminotransferase 35 U/L (0-41); Albumin Level 3.9 g/dL (3.5-5.2); Alkaline Phosphatase 129 IU/L (40-130); Anion Gap 14.2 (5-19); Aspartate Amino Transferase 60 U/L (0-40); Blood Urea Nitrogen 8 mg/dL (6-20); Calcium 9.1 mg/dL (8.5-10.5); Carbon Dioxide 28 mmol/L (22-29); Chloride 102 mmol/L (98-107); Creatinine Clr Calc Pharmacy 0; Globulin 2.9 g/dL (1.3-4.6); Glucose 126 mg/dL (65-115); Magnesium 2.1 mg/dL (1.7-2.3); Osmolality Calculated 290 mOsm/kg (285-295); Phosphorus 2.6 mg/dL (2.5-4.5); Potassium 4.2 mmol/L (3.5-5.1); Sodium 140 mmol/L (136-145); Total Bilirubin 0.3 mg/dL (0.15-1.2); Total Protein 6.8 g/dL (6.6-8.7)
[2022-01-09 08:17] LABS: C Reactive Protein 17.2 mg/L (0.0-4.9)
[2022-01-09 08:22] LABS: Procalcitonin 0.05 ng/mL (0-0.5)
[2022-01-09 08:35] LABS: Creatine Phosphokinase 2703 U/L (39-308)
[2022-01-09] MEDS: folic acid 1 mg Tablet PO (08:56)
[2022-01-09] MEDS: thiamine 100 mg Tablet PO (08:56)
[2022-01-09] MEDS: apixaban 5 mg Tablet 10 MG PO (08:56)
[2022-01-09] MEDS: amoxicillin-clav 875-125 mg Tablet 1 TAB PO (08:56)
[2022-01-09] MEDS: multivitamin therapeutic Tablet 1 TAB PO (08:56)
--- NOTE | 2022-01-09 13:06 | PM.PN ---
Subjective Subjective: Patient was seen this morning he is very agitated, he starts yelling at me, also starts wearing at me, tells me that his father rhabdomyolysis, denies any flank pain, no bloody or black stools, tells me he is not crazy wants to be discharged from the neuropsychiatric unit Vitals/I&O/Wt Last Vital Signs Temp 97.6 F 01/09/22 06:00 Pulse 75 01/09/22 06:00 Resp 17 01/09/22 06:00 BP 114/78 01/09/22 06:00 Pulse Ox 98 01/09/22 06:00 O2 Del Method 01/08/22 18:00 O2 Flow Rate 3 01/09/22 08:05 FiO2 40 01/07/22 00:00 01/08/22 01/09/22 01/09/22 22:59 06:59 14:59 Intake Total 1323.75 / 2809.570 Balance 1323.75 / 2259.570 Weight last 48 hrs Weight 0 g Weight 72.393 kg Physical Exam Narrative: Very agitated Const: COMMON NORMALS: no acute distress Resp: COMMON NORMALS: normal respiratory effort, No retractions, No use of accessory muscles and clear to auscultation bilaterally AUSCULTATION: clear to auscultation bilaterally Cardio: COMMON NORMALS: regular rate, regular rhythm, S1 normal heart sound present and S2 normal heart sound present RATE: regular rate RHYTHM: regular rhythm HEART SOUNDS: S1 normal heart sound present and S2 normal heart sound present GI: COMMON NORMALS: Normal to inspection, nondistended, normoactive bowel sounds present, non-tender and no masses Extremity: COMMON NORMALS: no pedal edema Urinary Catheter Management: Bowden: Cath Placed During This Visit: yes, but has since been removed by the nurse Reason for Continuing Indwelling Catheter: Other Urinary Catheter Date of Insertion: 01/05/22 Urinary Catheter Time of Insertion: 22:30 Date Urinary Catheter Removed: 01/07/22 Time Urinary Catheter Discontinued: 18:28 Data : 01/09/22 07:09 01/09/22 07:09 Micro: Microbiology 01/07/22 19:25 MRSA Culture - Final Nose 01/05/22 23:40 Gram Stain - Final Sputum - Endotracheal Tube Aspirate Sputum Culture - Final A&P Assessment and plan (1) Rhabdomyolysis: Status: Acute (2) Acute hyperactive delirium due to multiple etiologies: Status: Acute (3) Alcohol intoxication delirium: Status: Acute (4) Acute respiratory failure: Status: Acute (5) Polysubstance abuse: Status: Acute (6) Bilateral pneumonia: Status: Acute (7) Pulmonary embolism: Status: Acute Plan Acute hyperactive delirium upon presentation, may be related to acute alcohol intoxication versus intoxication with methamphetamines. He was noted to be verbally and physically aggressive for which ketamine was administered in the ER. Status postextubation 01/06/2022 1 to 2 L On 3 L, elevated dimer, elevated white count, CT angiogram positive for right middle lobe pulm embolism, started on heparin drip, tolerated well, switch to Eliquis, tolerating it well, bilateral lower lobe pneumonia, initially managed with broad-spectrum antibiotic therapy vancomycin, Zosyn, remains afebrile, CRP 59, Pro-Prabhu within normal limits, white blood cell 11.6, transition to Augmentin Has evidence of rhabdomyolysis, CPK over 3000 continue IV fluids, encourage p.o. hydration, once he leaves the neuropsychiatric unit Thiamine 100 mg p.o. daily, folic acid 1 mg p.o. daily Differentials for delirium include side effect from ketamine, alcohol withdrawal, rhabdo, pneumonia, pulmonary embolism Patient history of gonococcal urethritis in September 2021. We will additionally screen for other STDs which may contribute to altered mental status including fourth-generation HIV testing, RPR screen for syphilis. Check blood cultures given Utox Suggestive of polysubstance abuse, Cardiac echocardiogram no significant valvular abnormalities Of the abdomen no cholelithiasis, mild diffuse gallbladder wall thickening Acute respiratory distress may be a result of low GCS from alcohol intoxication versus aspiration versus IV sedation versus ketamine, currently on room air, continue Augmentin Monitor respiratory status, BiPAP as needed overnight Chest x-ray without gross consolidation, pneumothorax or infiltrates. History of suicidal ideation, suicide precautions, one-to-one Fall, aspiration and seizure precautions. Plan -Continue Eliquis 10 mg twice daily for 7 days then transition to 5 mg twice daily thereafter, needs at least 3 months of anticoagulation -Etiology of pulmonary embolism is unclear, possibly secondary to IV drug use, needs to follow-up with pulmonary as outpatient -For pneumonia, can continue 7 days of antibiotics, Augmentin -For his rhabdomyolysis needs to hydrate well, at least 2 L of fluid a day -Abstain from alcohol, abstain from drug use -Follow-up with primary care provider in 1 week -We will continue to monitor -Patient advised if he were to have any bloody or black stools or hematemesis hemoptysis go to emergency room GI ppx: Protonix 40mg DVT ppx: lovenox 40mg s/c daily Attestations Medical Necessity Statement*: Patient requires hospitalization, currently hospice reviewed, for pulmonary embolism, pneumonia, rhabdo Coding Level of Care Code Acute Brick Paver for [facility] Diagnoses Rhabdomyolysis M62.82 Acute hyperactive delirium due to multiple etiologies F05 Alcohol intoxication delirium F10.121 Acute respiratory failure J96.00 Polysubstance abuse F19.10 Bilateral pneumonia J18.9 Pulmonary embolism I26.99
[2022-01-09 13:48] VITALS: BP 114/78; PULSE 75; RESP 17; TEMP 36.4; O2SAT 98
--- NOTE | 2022-01-09 14:26 | PM.DCS ---
Discharge Providers Date of Admission: 01/05/22 23:31 Date of Discharge: January 09, 2022 Attending Provider at Admission: Dony Bautista MD Attending Provider at Discharge: Dony Bautista MD Primary Care Provider: Radha Perez APRN Diagnoses at Discharge Discharge Diagnosis (1) Rhabdomyolysis: Status: Acute (2) Acute hyperactive delirium due to multiple etiologies: Status: Acute (3) Alcohol intoxication delirium: Status: Acute (4) Acute respiratory failure: Status: Acute (5) Polysubstance abuse: Status: Acute (6) Bilateral pneumonia: Status: Acute (7) Pulmonary embolism: Status: Acute Reason for Visit Reason for Visit: [facility] Hospital Course Hospital Course This is a 31-year-old male, who was admitted to [facility] for acute hyperactive delirium secondary to methamphetamine intoxication, acute alcohol intoxication Patient was intubated due to acute hypoxic respiratory failure after ketamine dose which was administered in the emergency room as patient was verbally and physically aggressive, resulting in intubation, mechanical ventilation, sedation, ICU admission Patient was extubated 01/06/2022 onto 1 to 2 L nasal cannula, monitor for the next for 48 hours in ICU, clinically improved, to room air, intermittent diuresis, moved to the neuropsychiatric unit, clinically monitored, discharged home CT angiogram showed a right middle lobe pulmonary embolism, monitored on heparin drip, switch to Eliquis, remained hemodynamically stable, no significant evidence of bleeding, hemoglobin remained stable. Discharged home on Eliquis, follow-up with primary care provider for recheck CBC in 1 week, if he were to develop any signs of bleeding go to the emergency room, Eliquis must be continued for at least 3 months follow-up with pulmonary in 1 month Patient was advised to abstain from any alcohol consumption, any methamphetamine use Patient denies any suicidal ideation, denies any homicidal ideation, recent stressors was he was breaking up with his , does admit to IV drug use, advised to abstain from any IV drug use. Patient was advised if he were to have to have any suicidal ideation any homicidal ideation go to emergency room, or call 911 Patient will also was found to have bibasilar pneumonia, managed broad-spectrum antibiotic therapy, remained afebrile, cultures have been negative so far, discharged on Augmentin Patient was also found to have rhabdomyolysis, likely secondary to alcohol intoxication, methamphetamine intoxication, dehydration, managed with IV fluids, discharged with instructions to drink plenty of electrolyte balance fluids at least 2 L of fluids a day, follow-up with primary care provider for recheck creatinine Physical Exam Const: COMMON NORMALS: no acute distress and patient oriented x3 Resp: COMMON NORMALS: normal respiratory effort, No retractions, No use of accessory muscles and clear to auscultation bilaterally AUSCULTATION: clear to auscultation bilaterally Cardio: COMMON NORMALS: regular rate, regular rhythm, S1 normal heart sound present and S2 normal heart sound present RATE: regular rate RHYTHM: regular rhythm HEART SOUNDS: S1 normal heart sound present and S2 normal heart sound present GI: COMMON NORMALS: Normal to inspection, nondistended, normoactive bowel sounds present, Soft to palpation and non-tender PALPATION: Yes Soft to palpation Extremity: COMMON NORMALS: no calf tenderness and no pedal edema Neuro: COMMON NORMALS: patient oriented x3 Psych: COMMON NORMALS: mental status grossly normal Urinary Catheter Management: Bowden: Cath Placed During This Visit: yes, but has since been removed by the nurse Reason for Continuing Indwelling Catheter: Other Urinary Catheter Date of Insertion: 01/05/22 Urinary Catheter Time of Insertion: 22:30 Date Urinary Catheter Removed: 01/07/22 Time Urinary Catheter Discontinued: 18:28 Discharge Data Studies Completed and Pending Completed Studies During Hospitalization Category Date Time Status CT angio chest PE protcl [id number] Routine Cat Scan 01/07/22 15:[address] head wo con* [id number] Routine Cat Scan 01/05/22 21:03 Completed XR KUB portable [id number] Urgent Exams 01/05/22 22:20 Completed XR chest 1V portable [id number] Routine Exams 01/07/22 07:43 Completed XR chest 1V portable [id number] Stat Exams 01/05/22 21:55 Completed XR chest 1V portable [id number] Stat Exams 01/05/22 22:11 Completed CV. echo complete* [id number] Routine Ultrasound 01/07/22 10:34 Completed US abdomen limited [id number] Routine Ultrasound 01/07/22 15:54 Completed US venous duplex lower extremity bilat [CV venous Ultrasound 01/07/22 19:02 [place] [id number]] Routine Pending at discharge Category Date Time Status Blood Culture Stat Lab 01/05/22 23:33 Results C Reactive Protein AM LABS Lab 01/10/22 04:00 Ordered Creatine Phosphokinase AM LABS Lab 01/10/22 04:00 Ordered Procalcitonin AM LABS Lab 01/10/22 04:00 Ordered Trichomonas Vaginalis Male Routine Lab 01/06/22 09:40 Received Radiology Impressions Head CT 01/05/22 21:03 IMPRESSION: 1. No evidence of acute intracranial hemorrhage, mass effect, or midline shift. 2. No evidence of acute calvarial fractures. 3. Small posterior parietal soft tissue swelling. KUB X-Ray 01/05/22 22:20 IMPRESSION: The nasogastric tube loops in the stomach with the tip and the side hole well below the diaphragm. Chest X-Ray 01/07/22 07:43 IMPRESSION: 1. Negative chest. Abdomen Ultrasound 01/07/22 15:54 IMPRESSION: 1. No cholelithiasis. 2. Mild diffuse gallbladder wall thickening may be due to hepatocellular disease. There is no pericholecystic fluid or hydrops to suggest acute cholecystitis. Chest CTA 01/07/22 15:57 IMPRESSION: 1. Right middle lobe pulmonary embolism. Low clot burden. No sign of right ventricular strain. 2. Bilateral lower lobe bronchitis with probable bronchopneumonia on the right. 3. 7 mm right lower lobe pulmonary nodule.For patients at low risk (minimal or absent history of smoking and of other known risk factors), recommend CT Chest at 6-12 months, then consider CT Chest at 18-24 months. For patients at high risk (history of smoking or of other known risk factors), recommend CT Chest at 6-12 months, then CT Chest at 18-24 months. (Reference: Wilmer) REFERENCES: Philippeholucero H, et al. Guidelines for Management of Incidental Pulmonary Nodules Detected on CT Images: From the Fleischner Society 2017. Radiology. 2017;284(1):228-243. ADDENDUM: 01/07/22 4799 THIS REPORT CONTAINS FINDINGS THAT MAY BE CRITICAL TO PATIENT CARE. The findings were verbally communicated via telephone conference with JANNIE SORIANO at 6:55 PM CDT on 01/07/2022. The findings were acknowledged and understood. Laboratory Results WBC 9.5 10^3/uL (4.0-10.0) 01/09/22 07:09 RBC 5.16 10^6/uL (4.1-5.3) 01/09/22 07:09 Hgb 16.1 g/dL (11.7-16.6) 01/09/22 07:09 Hct 47.2 % (42.0-52.0) 01/09/22 07:09 MCV 91.5 fl (80-94) 01/09/22 07:09 MCH 31.2 pg (28.0-34.0) 01/09/22 07:09 MCHC 34.1 g/dL (30.0-36.0) 01/09/22 07:09 RDW 12.6 % (12.1-15.1) 01/09/22 07:09 Plt Count 323 10^3/cmm (130-400) 01/09/22 07:09 MPV 9.0 fL (7.4-10.4) 01/09/22 07:09 Neut % (Auto) 70.2 % 01/09/22 07:09 Lymph % (Auto) 19.8 % 01/09/22 07:09 Towns % (Auto) 6.5 % 01/09/22 07:09 Eos % (Auto) 2.8 % 01/09/22 07:09 Baso % (Auto) 0.5 % 01/09/22 07:09 Neut # (Auto) 6.69 10^3/uL (1.8-7.7) 01/09/22 07:09 Lymph # (Auto) 1.9 10^3/uL (0.8-4.8) 01/09/22 07:09 Towns # (Auto) 0.6 10^3/uL (0.2-0.9) 01/09/22 07:09 Eos # (Auto) 0.3 10^3/uL (0.0-0.8) 01/09/22 07:09 Baso # (Auto) 0.1 10^3/uL (0.0-0.1) 01/09/22 07:09 Nucleated RBC % (auto) 0 % 01/09/22 07:09 Nucleated RBCs # 0.0 /100WBC 01/09/22 07:09 ESR 7 mm/hr (0-10) 01/07/22 16:18 PT 12.20 SECONDS (12.1-14.9) 01/08/22 03:35 INR 0.88 (0.8-1.2) 01/08/22 03:35 APTT 40.0 SECONDS (23.9-36.7) H D 01/08/22 03:35 D-Dimer 1.22 ug/mIFEU (0-0.59) H 01/05/22 19:37 Specimen Type Art 01/06/22 04:00 Sample Site R rad 01/06/22 04:00 ABG pH 7.40 (7.35-7.45) 01/06/22 04:00 ABG pCO2 46.0 mmHg (35-45) H 01/06/22 04:00 ABG pO2 153.0 mmHg (80.0-100.0) H 01/06/22 04:00 ABG HCO3 28.3 mmol/L (22-26) H 01/06/22 04:00 ABG Base Excess 2.7 mmol/L (-2.0-2.0) H 01/06/22 04:00 [place] Test Pos 01/06/22 04:00 Hematocrit 44.7 % (42-52) 01/06/22 04:00 Respiration Rate 14.0 % 01/06/22 04:00 O2 Delivery Device Vent 01/06/22 04:00 Vent Mode Cmv 01/06/22 04:00 FiO2 40.0 % 01/06/22 04:00 Tidal Volume .50 01/06/22 04:00 PEEP 5.0 cmH20 01/06/22 04:00 Specimen Drawn By Taniya 01/06/22 04:00 Sheet Metal Helper ID Taniya 01/06/22 04:00 Sodium 140 mmol/L (136-145) 01/09/22 07:09 Potassium 4.2 mmol/L (3.5-5.1) 01/09/22 07:09 Chloride 102 mmol/L (98-107) 01/09/22 07:09 Carbon Dioxide 28 mmol/L (22-29) 01/09/22 07:09 Anion Gap 14.2 (5-19) 01/09/22 07:09 BUN 8 mg/dL (6-20) 01/09/22 07:09 Creatinine 0.8 mg/dL (0.7-1.2) 01/09/22 07:09 GFR Calculation 112.0 mL/min (90-130) 01/09/22 07:09 Glucose 126 mg/dL (65-115) H 01/09/22 07:09 POC Glucose 121 mg/dL (70-110) H 01/08/22 03:35 Calculated Osmolality 290 mOsm/kg (285-295) 01/09/22 07:09 Lactic Acid 1.6 mmol/L (0.5-2.2) 01/05/22 19:37 Calcium 9.1 mg/dL (8.5-10.5) 01/09/22 07:09 Phosphorus 2.6 mg/dL (2.5-4.5) 01/09/22 07:09 Magnesium 2.1 mg/dL (1.7-2.3) 01/09/22 07:09 Total Bilirubin 0.3 mg/dL (0.15-1.2) 01/09/22 07:09 AST 60 U/L (0-40) H 01/09/22 07:09 ALT 35 U/L (0-41) 01/09/22 07:09 Alkaline Phosphatase 129 IU/L (40-130) 01/09/22 07:09 Creatine Kinase 2703 U/L (39-308) H* 01/09/22 07:09 C-Reactive Protein 17.2 mg/L (0.0-4.9) H 01/09/22 07:09 NT-Pro-B Natriuret Pep 5 pg/mL (0-125) 01/08/22 03:35 Total Protein 6.8 g/dL (6.6-8.7) 01/09/22 07:09 Albumin 3.9 g/dL (3.5-5.2) 01/09/22 07:09 Globulin 2.9 g/dL (1.3-4.6) 01/09/22 07:09 Lipase 29 U/L (13-60) 01/05/22 19:37 Procalcitonin 0.05 ng/mL (0-0.5) 01/09/22 07:09 Urine Color Yellow (Yellow) 01/05/22 23:00 Urine Appearance Clear (CLEAR) 01/05/22 23:00 Urine pH 7 (5-7) 01/05/22 23:00 Ur Specific [place] 1.005 (1.005-1.030) 01/05/22 23:00 Urine Protein Neg (Negative) 01/05/22 23:00 Urine Glucose (UA) Norm (Normal) 01/05/22 23:00 Urine Ketones Negative (Negative) 01/05/22 23:00 Urine Blood Neg (Negative) 01/05/22 23:00 Urine Nitrate Negative (Negative) 01/05/22 23:00 Urine Bilirubin Neg (Negative) 01/05/22 23:00 Urine Urobilinogen Norm mg/dL (Negative) 01/05/22 23:00 Ur Leukocyte Esterase Negative (Negative) 01/05/22 23:00 Salicylates < 0.3 mg/dL (3-10) L 01/05/22 19:37 Urine Opiates Screen Negative ng/mL (Negative) 01/05/22 23:00 Acetaminophen < 5.0 ug/mL (10-30) L 01/05/22 19:37 Ur Barbiturates Screen Negative ng/mL (Negative) 01/05/22 23:00 Ur Phencyclidine Scrn Negative ng/mL (Negative) 01/05/22 23:00 Ur Amphetamines Screen Positive ng/mL (Negative) H 01/05/22 23:00 U Benzodiazepines Scrn Negative ng/mL (Negative) 01/05/22 23:00 Urine Cocaine Screen Negative ng/mL (Negative) 01/05/22 23:00 U Marijuana (THC) Screen Positive ng/mL (Negative) H 01/05/22 23:00 Ethyl Alcohol 142 mg/dL (0-10) H 01/05/22 19:37 RPR Nonreactive (Nonreactive) 01/06/22 07:32 RPR w/Rflx to Titer Non-reactive (NON-REACTIVE) 01/05/22 19:37 Hepatitis A IgM Ab Non-reactive (Nonreactive) 01/06/22 06:35 Hep Bs Antigen Non-reactive (Nonreactive) 01/06/22 06:35 Hep Bs Antibody < 3.5 (11.5-1000) L 01/06/22 06:35 Hep B Core Total Ab Non-reactive (Nonreactive) 01/06/22 06:35 Hepatitis C Antibody Non-reactive (Nonreactive) 01/06/22 06:35 HIV 1&2 Ab & HIV 1 Ag Non-reactive (Non-Reactiv) 01/06/22 06:35 HIV 1&2 Antibody Non-reactive (Non-Reactiv) 01/06/22 06:35 SARS-CoV-2 Ag (Rapid) Negative (Negative) 01/05/22 22:39 Vitals Last Vital Signs Temp 97.6 F 01/09/22 13:48 Pulse 75 01/09/22 13:48 Resp 17 01/09/22 13:48 BP 114/78 01/09/22 13:48 Pulse Ox 98 01/09/22 13:48 O2 Del Method 01/08/22 18:00 O2 Flow Rate 3 01/09/22 13:48 FiO2 40 01/07/22 00:00 Discharge Plan Discharge Patient Disposition: Home Condition: Stable Prescriptions: New Eliquis DVT-PE Treat 30D Start 5 mg (74 tabs) tablets,dose pack See Rx Instructions .ROUTE .COMPLEX Qty: 74 0RF Rx Instructions: orally per package directions amoxicillin-pot clavulanate 875-125 mg Tablet 1 tab PO BID 7 Days Qty: 14 0RF No Action No Known Home Medications Referrals: Bernard Perez MD [Physician] - 01/29/22 2:00 pm (Establish new doctor.) Ml García, PMHNP [Staff Physician] - 01/13/22 12:30 pm (Follow up for 01/13/22-needs to be there at 12:30 pm for check-in/nurse appointment. ) Rama Mendes MD [Physician] - 1 month (pe) Patient Instructions: Opioid Safety Activity Restrictions/Additional Instructions: - For your blood clot, I have discharged you on Eliquis, which is a strong blood thinner -If you develop bloody or black stools or feel lightheaded or dizzy or you develop bloody cough or bloody vomit go immediately to the emergency room -See your primary care provider in 1 week, recheck hemoglobin in 1 week -For your pneumonia have discharged you on antibiotic take as prescribed -For your rhabdomyolysis, drink plenty of electrolyte balance fluids, such as Gatorade or Powerade at least 2 L -Have your primary care provider recheck your kidney function in 1 week Discharge Attestations Time Spent in Discharge Care*: less than 30 min Quality Metrics Clinical Quality Measures [ Venous Thromboembolism { Contraindication to Overlap Therapy: Overlap treatment not indicated; VTE Discharge Education: Education about anticoagulant therapy/Care Notes given;}] Coding Level of Care Code Acute Chg FW DC note Diagnoses Rhabdomyolysis M62.82 Acute hyperactive delirium due to multiple etiologies F05 Alcohol intoxication delirium F10.121 Acute respiratory failure J96.00 Polysubstance abuse F19.10 Bilateral pneumonia J18.9 Pulmonary embolism I26.99
--- NOTE | 2022-01-09 14:54 | W.PM.NPUDCS ---
Diagnoses at Discharge Discharge Diagnosis (1) Rhabdomyolysis: Status: Resolved (2) Acute hyperactive delirium due to multiple etiologies: Status: Resolved (3) Alcohol intoxication delirium: Status: Resolved (4) Acute respiratory failure: Status: Resolved (5) Polysubstance abuse: Status: Acute (6) Bilateral pneumonia: Status: Resolved (7) Pulmonary embolism: Status: Acute Reason for Visit Reason for Visit: MHE Brief History: History of Present Illness Alden Urena is a 31 year old male who presented to the emergency department with the following report: Chief complaint: Psychiatric Symptoms Stated complaint: MHE Time Seen by Provider: 01/05/22 19:18 History of Present Illness:?? HPI: [31]yo patient w/ hx of depression BIBA for SI and auditory hallucination. Patient endorses SI to police. On arrival, the patient is AAOx3 and cooperative with my evaluation. No focal complaints of chest pain, shortness of breath, palpitations, N/V, focal GI/ complaints. Currently denies HI. No complaints of visual hallucinations. Onset: acute Duration: ongoing Location: home Severity: severe Associated symptoms: Deny chest pain, dyspnea, nausea, rash, palpitations or vomiting After receiving ketamine he had a episode where he ended up on floor and was being aggressive was taken to the ICU for evaluation and treatment of any sequela from that episode.? He is on a 96-hour hold and will be transferred to the neuropsychiatric unit for definitive treatment of those issues.? He presents today reporting he is not currently taking any medications and reports he was brought in by the police while intoxicated and that when he came in, he was given a medication which he did not react well to causing him to fall out of bed. He has never been psychiatrically hospitalized, is in the process of getting outpatient therapeutic services and has not been on psychiatric medication. He reports smoking a pack of cigarettes a day, alcohol daily, marijuana most days, methamphetamine but denies any other illicit drug use. He has been to rehab once a few years ago at [facility] but has had no drug and alcohol related charges. He reports depression with low mood beginning when he was an adult but denies suicidal ideation. He denies problems with anxiety or worrying. He began drinking daily and using methamphetamine almost a year ago when he and his split up. He reports he was sitting on the sidewalk after drinking and went into a store to get some water and was denied due to him not having a shirt on. He reports he may have made a statement about suicide by [employer] when he was there but has had no other instances like this. Psychiatric History: As above. Substance Abuse History: As above. Family History: He denies mental health issues on either side of the family, addiction issues on his father?s side of the family and denies suicide attempts or completions. Developmental History: He denies any issues with his or , learned to walk and talk and met his developmental milestones on time and required learning support and had an IEP but denies speech therapy, emotional support or special education classes. Psychosocial History: He reports his parents were together when he was born and remained together. He has 2 older brothers who are products of the same union. Neither of his parents have any additional children. He described his childhood as great and denies emotional, physical or sexual abuse. He denies C[employer] involvement or other traumatic events besides his breakup. He graduated high school and was trained in [employer]. He endorses being heterosexual with his longest relationship being 13 years. He has never been , has a 9 and 6 year old son and daughter and older step-son, has never been in the and endorses believing in god. His longest employment history is 10 years. He is currently unemployed. He currently lives in a house with his aunt. Legal History: He went to long-term once for 24 hours. Medical History: Denied.? Hospital Course Hospital Course He slowly acclimated to the individual, group milieu therapies provided. He was initially in the ICU secondary to his presentation. An excerpt of his hospital course per the hospitalist is included below. He acknowledged the impact of recent and his presentation but downplayed how long this is problem and that his issues on he and his significant other splitting about a year ago but did not acknowledge that the reason why they likely split was because of his addiction issues growing creating a vicious cycle. He was not interested in medication and was therefore monitored for safety considerations given the 96-hour hold. He had significant improvement over his admission presentation. Significant concerns about a poor outcome exist secondary to him not focusing on his recovery and committing to treatment. However at discharge he was working with his significant other on consideration of a long-term program like that 3:16, reporting that he wants to take it a day at a time and first of the opportunity to see his kids this weekend. We had a long discussion at discharge about accountability for his recovery and addiction. He was able to contract for safety outside of the hospital prior to discharge. Per his hospitalist's hospital course note: This is a 31-year-old male, who was admitted to [facility] for acute hyperactive delirium secondary to methamphetamine intoxication, acute alcohol intoxication Patient was intubated due to acute hypoxic respiratory failure after ketamine dose which was administered in the emergency room as patient was verbally and physically aggressive, resulting in intubation, mechanical ventilation, sedation, ICU admission Patient was extubated 01/06/2022 onto 1 to 2 L nasal cannula, monitor for the next for 48 hours in ICU, clinically improved, to room air, intermittent diuresis, moved to the neuropsychiatric unit, clinically monitored, discharged home CT angiogram showed a right middle lobe pulmonary embolism, monitored on heparin drip, switch to Eliquis, remained hemodynamically stable, no significant evidence of bleeding, hemoglobin remained stable. Discharged home on Eliquis, follow-up with primary care provider for recheck CBC in 1 week, if he were to develop any signs of bleeding go to the emergency room, Eliquis must be continued for at least 3 months follow-up with pulmonary in 1 month Patient was advised to abstain from any alcohol consumption, any methamphetamine use Patient denies any suicidal ideation, denies any homicidal ideation, recent stressors was he was breaking up with his , does admit to IV drug use, advised to abstain from any IV drug use. Patient was advised if he were to have to have any suicidal ideation any homicidal ideation go to emergency room, or call 911 Patient will also was found to have bibasilar pneumonia, managed broad-spectrum antibiotic therapy, remained afebrile, cultures have been negative so far, discharged on Augmentin Patient was also found to have rhabdomyolysis, likely secondary to alcohol intoxication, methamphetamine intoxication, dehydration, managed with IV fluids, discharged with instructions to drink plenty of electrolyte balance fluids at least 2 L of fluids a day, follow-up with primary care provider for recheck creatinine. Discharge Summary: At the time of discharge, he denied psychosis or lethality. Mood and anxiety were well managed. Patient endorsed a plan to avoid all drugs of abuse and follow-up with the aftercare recommendations of the treatment team. Patient was evaluated and deemed to be absent credible lethality, and had achieved the maximum benefit from an inpatient hospitalization, so was discharged. Involuntary Hold Information 96 Hour Hold: 96 Hour Involuntary Admission: Yes 96 Hour Hold Ending Date: 01/14/22 96 Hour Hold Ending Time: 17:15 Mental Status Exam MSE Comments: This is a well nourished, well developed white male in hospital scrubs with limited grooming and adequate eye contact. No abnormal movements. Cooperative with exam in no acute distress. Speech was normal rate and volume. Mood described as pretty good, affect is congruent. Thought process, organized. Thought content: patient denies suicidal or homicidal ideation, no delusions noted or reported and denies any auditory or visual hallucinations. Attention and concentration are intact and memory appeared reliable but none were formally tested. He is alert and oriented three times. Insight and judgment are fair. Impulse control is limited. Physical Exam Urinary Catheter Management: Bowden: Cath Placed During This Visit: yes, but has since been removed by the nurse Reason for Continuing Indwelling Catheter: Other Urinary Catheter Date of Insertion: 01/05/22 Urinary Catheter Time of Insertion: 22:30 Date Urinary Catheter Removed: 01/07/22 Time Urinary Catheter Discontinued: 18:28 Discharge Data Studies Completed and Pending: Completed Studies During Hospitalization Category Date Time Status CT angio chest PE protcl [id number] Rout ine Cat Scan 01/07/22 15:[address] head wo con* 7 0450 Routine Cat Scan 01/05/22 21:03 Completed XR KUB portable 7 4018 Urgent Exams 01/05/22 22:20 Completed XR chest 1V parisa ble [id number] Routine Exams 01/07/22 07:43 Completed XR chest 1V parisa ble [id number] Stat Exams 01/05/22 21:55 Completed XR chest 1V parisa ble [id number] Stat Exams 01/05/22 22:11 Completed CV. echo complete * [id number] Routine Ultrasound 01/07/22 10:34 Com[place] d [id number] Routine Ultrasound 01/07/22 15:54 Completed US venous duplex lower extremity bi lat [CV venous Ultrasound 01/07/22 19:02 [place] [id number] 0] Routine Pending at discharge Category Date Time Status Blood Culture Sta t Lab 01/05/22 23:33 Results C Reactive Protei n AM LABS Lab 01/10/22 04:00 Ordered Creatine Phosphok inase AM LABS Lab 01/10/22 04:00 Ordered Procalcitonin AM LABS Lab 01/10/22 04:00 Ordered Trichomonas Vagin sly Male Routine Lab 01/06/22 09:40 Received Radiology Impressions Head CT 01/05/22 21:03 IMPRESSION: 1. No evidence of acute intracranial hemorrhage, mass effect, or midline shift. 2. No evidence of acute calvarial fractures. 3. Small posterior parietal soft tissue swelling. KUB X-Ray 01/05/22 22:20 IMPRESSION: The nasogastric tube loops in the stomach with the tip and the side hole well below the diaphragm. Chest X-Ray 01/07/22 07:43 IMPRESSION: 1. Negative chest. Abdomen Ultrasound 01/07/22 15:54 IMPRESSION: 1. No cholelithiasis. 2. Mild diffuse gallbladder wall thickening may be due to hepatocellular disease. There is no pericholecystic fluid or hydrops to suggest acute cholecystitis. Chest CTA 01/07/22 15:57 IMPRESSION: 1. Right middle lobe pulmonary embolism. Low clot burden. No sign of right ventricular strain. 2. Bilateral lower lobe bronchitis with probable bronchopneumonia on the right. 3. 7 mm right lower lobe pulmonary nodule.For patients at low risk (minimal or absent history of smoking and of other known risk factors), recommend CT Chest at 6-12 months, then consider CT Chest at 18-24 months. For patients at high risk (history of smoking or of other known risk factors), recommend CT Chest at 6-12 months, then CT Chest at 18-24 months. (Reference: Wilmer) REFERENCES: RonanMaholucero H, et al. Guidelines for Management of Incidental Pulmonary Nodules Detected on CT Images: From the Fleischner Society 2017. Radiology. 2017;284(1):228-243. ADDENDUM: 01/07/22 0343 THIS REPORT CONTAINS FINDINGS THAT MAY BE CRITICAL TO PATIENT CARE. The findings were verbally communicated via telephone conference with JANNIE SORIANO at 6:55 PM CDT on 01/07/2022. The findings were acknowledged and understood. Laboratory Results WBC 9.5 10^3/uL (4.0- 10.0) 01/09/22 07:09 RBC 5.16 10^6/uL (4.1 -5.3) 01/09/22 07:09 Hgb 16.1 g/dL (11.7-1 6.6) 01/09/22 07:09 Hct 47.2 % (42.0-52.0 ) 01/09/22 07:09 MCV 91.5 fl (80-94) 01/09/22 07:09 MCH 31.2 pg (28.0-34. 0) 01/09/22 07:09 MCHC 34.1 g/dL (30.0-3 6.0) 01/09/22 07:09 RDW 12.6 % (12.1-15.1 ) 01/09/22 07:09 Plt Count 323 10^3/cmm (130 -400) 01/09/22 07:09 MPV 9.0 fL (7.4-10.4) 01/09/22 07:09 Neut % (Auto) 70.2 % 01/09/22 07:09 Lymph % (Auto) 19.8 % 01/09/22 07:09 Durham % (Auto) 6.5 % 01/09/22 07:09 Eos % (Auto) 2.8 % 01/09/22 07:09 Baso % (Auto) 0.5 % 01/09/22 07:09 Neut # (Auto) 6.69 10^3/uL (1.8 -7.7) 01/09/22 07:09 Lymph # (Auto) 1.9 10^3/uL (0.8- 4.8) 01/09/22 07:09 Durham # (Auto) 0.6 10^3/uL (0.2- 0.9) 01/09/22 07:09 Eos # (Auto) 0.3 10^3/uL (0.0- 0.8) 01/09/22 07:09 Baso # (Auto) 0.1 10^3/uL (0.0- 0.1) 01/09/22 07:09 Nucleated RBC % (a uto) 0 % 01/09/22 07:09 Nucleated RBCs # 0.0 /100WBC 01/09/22 07:09 ESR 7 mm/hr (0-10) 01/07/22 16:18 PT 12.20 SECONDS (12 .1-14.9) 01/08/22 03:35 INR 0.88 (0.8-1.2) 01/08/22 03:35 APTT 40.0 SECONDS (23. 9-36.7) H D 01/08/22 03:35 D-Dimer 1.22 ug/mIFEU (0- 0.59) H 01/05/22 19:37 Specimen Type Art 01/06/22 04:00 Sample Site R rad 01/06/22 04:00 ABG pH 7.40 (7.35-7.45) 01/06/22 04:00 ABG pCO2 46.0 mmHg (35-45) H 01/06/22 04:00 ABG pO2 153.0 mmHg (80.0- 100.0) H 01/06/22 04:00 ABG HCO3 28.3 mmol/L (22-2 6) H 01/06/22 04:00 ABG Base Excess 2.7 mmol/L (-2.0- 2.0) H 01/06/22 04:00 Aldair Test Pos 01/06/22 04:00 Hematocrit 44.7 % (42-52) 01/06/22 04:00 Respiration Rate 14.0 % 01/06/22 04:00 O2 Delivery Device Vent 01/06/22 04:00 Vent Mode Cmv 01/06/22 04:00 FiO2 40.0 % 01/06/22 04:00 Tidal Volume .50 01/06/22 04:00 PEEP 5.0 cmH20 01/06/22 04:00 Specimen Drawn By Taniya 01/06/22 04:00 Consulting Project Director ID Taniya 01/06/22 04:00 Sodium 140 mmol/L (136-1 45) 01/09/22 07:09 Potassium 4.2 mmol/L (3.5-5 .1) 01/09/22 07:09 Chloride 102 mmol/L (98-10 7) 01/09/22 07:09 Carbon Dioxide 28 mmol/L (22-29) 01/09/22 07:09 Anion Gap 14.2 (5-19) 01/09/22 07:09 BUN 8 mg/dL (6-20) 01/09/22 07:09 Creatinine 0.8 mg/dL (0.7-1. 2) 01/09/22 07:09 GFR Calculation 112.0 mL/min (90- 130) 01/09/22 07:09 Glucose 126 mg/dL (65-115 ) H 01/09/22 07:09 POC Glucose 121 mg/dL (70-110 ) H 01/08/22 03:35 Calculated Osmolal ity 290 mOsm/kg (285- 295) 01/09/22 07:09 Lactic Acid 1.6 mmol/L (0.5-2 .2) 01/05/22 19:37 Calcium 9.1 mg/dL (8.5-10 .5) 01/09/22 07:09 Phosphorus 2.6 mg/dL (2.5-4. 5) 01/09/22 07:09 Magnesium 2.1 mg/dL (1.7-2. 3) 01/09/22 07:09 Total Bilirubin 0.3 mg/dL (0.15-1 .2) 01/09/22 07:09 AST 60 U/L (0-40) H 01/09/22 07:09 ALT 35 U/L (0-41) 01/09/22 07:09 Alkaline Phosphata se 129 IU/L (40-130) 01/09/22 07:09 Creatine Kinase 2703 U/L (39-308) H* 01/09/22 07:09 C-Reactive Protein 17.2 mg/L (0.0-4. 9) H 01/09/22 07:09 NT-Pro-B Natriuret Pep 5 pg/mL (0-125) 01/08/22 03:35 Total Protein 6.8 g/dL (6.6-8.7 ) 01/09/22 07:09 Albumin 3.9 g/dL (3.5-5.2 ) 01/09/22 07:09 Globulin 2.9 g/dL (1.3-4.6 ) 01/09/22 07:09 Lipase 29 U/L (13-60) 01/05/22 19:37 Procalcitonin 0.05 ng/mL (0-0.5 ) 01/09/22 07:09 Urine Color Yellow (Yellow) 01/05/22 23:00 Urine Appearance Clear (CLEAR) 01/05/22 23:00 Urine pH 7 (5-7) 01/05/22 23:00 Ur Specific Gravit y 1.005 (1.005-1.0 30) 01/05/22 23:00 Urine Protein Neg (Negative) 01/05/22 23:00 Urine Glucose (UA) Norm (Normal) 01/05/22 23:00 Urine Ketones Negative (Negati ve) 01/05/22 23:00 Urine Blood Neg (Negative) 01/05/22 23:00 Urine Nitrate Negative (Negati ve) 01/05/22 23:00 Urine Bilirubin Neg (Negative) 01/05/22 23:00 Urine Urobilinogen Norm mg/dL (Negat elisabet) 01/05/22 23:00 Ur Leukocyte Kiersten ase Negative (Negati ve) 01/05/22 23:00 Salicylates < 0.3 mg/dL (3-10 ) L 01/05/22 19:37 Urine Opiates Scre en Negative ng/mL (N egative) 01/05/22 23:00 Acetaminophen < 5.0 ug/mL (10-3 0) L 01/05/22 19:37 Ur Barbiturates Sc reen Negative ng/mL (N egative) 01/05/22 23:00 Ur Phencyclidine S crn Negative ng/mL (N egative) 01/05/22 23:00 Ur Amphetamines Sc reen Positive ng/mL (N egative) H 01/05/22 23:00 U Benzodiazepines Scrn Negative ng/mL (N egative) 01/05/22 23:00 Urine Cocaine Scre en Negative ng/mL (N egative) 01/05/22 23:00 U Marijuana (THC) Screen Positive ng/mL (N egative) H 01/05/22 23:00 Ethyl Alcohol 142 mg/dL (0-10) H 01/05/22 19:37 RPR Nonreactive (Non reactive) 01/06/22 07:32 RPR w/Rflx to Tite r Non-reactive (NO N-REACTIVE) 01/05/22 19:37 Hepatitis A IgM Ab Non-reactive (No nreactive) 01/06/22 06:35 Hep Bs Antigen Non-reactive (No nreactive) 01/06/22 06:35 Hep Bs Antibody < 3.5 (11.5-1000 ) L 01/06/22 06:35 Hep B Core Total A b Non-reactive (No nreactive) 01/06/22 06:35 Hepatitis C Antibo dy Non-reactive (No nreactive) 01/06/22 06:35 HIV 1&2 Ab & HIV 1 Ag Non-reactive (No n-Reactiv) 01/06/22 06:35 HIV 1&2 Antibody Non-reactive (No n-Reactiv) 01/06/22 06:35 SARS-CoV-2 Ag (Rap id) Negative (Negati ve) 01/05/22 22:39 Vitals: Last Vital Signs Temp 97.6 F 01/09/22 13:48 Pulse 75 01/09/22 13:48 Resp 17 01/09/22 13:48 BP 114/78 01/09/22 13:48 Pulse Ox 98 01/09/22 13:48 O2 Del Method 01/08/22 18:00 O2 Flow Rate 3 01/09/22 13:48 FiO2 40 01/07/22 00:00 Discharge Plan Discharge Patient Disposition: Home Condition: Stable Prescriptions: New amoxicillin-pot clavulanate 875-125 mg Tablet 1 tab PO BID 7 Days Qty: 14 0RF Eliquis DVT-PE Treat 30D Start 5 mg (74 tabs) tablets,dose pack See Rx Instructions .ROUTE .COMPLEX Qty: 74 0RF Rx Instructions: orally per package directions Vitamin B-1 (mononitrate) 100 mg Tablet 100 mg PO DAILY 30 Days Qty: 30 1RF No Action naltrexone 50 mg tablet 50 mg PO .morning Qty: 30 1RF Hold Instructions: Doctor's Order Rx Instructions: Take one tablet every morning trazodone 150 mg tablet 150 mg PO BEDTIME PRN (Reason: insomnia) Qty: 30 1RF Rx Instructions: Take one tablet at bedtime as needed for sleep bupropion HCl [Wellbutrin XL] 150 mg tablet extended release 24 hr 150 mg PO QAM Qty: 30 1RF Rx Instructions: Take one tablet every morning Discharge Orders: Discharge Order (Routine); Ordered 01/09/22 Ordered By: Dony Bautista Referrals: Bernard Perez MD [Physician] - 01/29/22 2:00 pm (Establish new doctor.) Ml García PMHNP [Staff Physician] - 01/13/22 12:30 pm (Follow up for 01/13/22-needs to be there at 12:30 pm for check-in/nurse appointment. ) Rama Mendes MD [Physician] - 1 month (pe) Discharge Diet: Regular Discharge Activity: Resume usual activity Patient Instructions: Amoxicillin/Clavulanate Potassium (By mouth), Apixaban (By mouth), Pulmonary Embolism (DC), Viral Pneumonia (GEN), Rhabdomyolysis (DC), Mood Disorders (DC), Polysubstance Use Disorder (DC), Suicide Prevention (DC), Opioid Safety Activity Restrictions/Additional Instructions: - For your blood clot, I have discharged you on Eliquis, which is a strong blood thinner -If you develop bloody or black stools or feel lightheaded or dizzy or you develop bloody cough or bloody vomit go immediately to the emergency room -See your primary care provider in 1 week, recheck hemoglobin in 1 week -For your pneumonia have discharged you on antibiotic take as prescribed -For your rhabdomyolysis, drink plenty of electrolyte balance fluids, such as Gatorade or Powerade at least 2 L -Have your primary care provider recheck your kidney function in 1 week Discharge Attestations NPU Time Spent in Discharge Care*: less than 30 min Specific Discharge Activities: Specific discharge activities: educating patient, discussing with patient case coordinator/social workers/dc planners, documenting/other paperwork and evaluating patient/reviewing data Coding Level of Care Code Acute Chg FW DC note Diagnoses Rhabdomyolysis M62.82 Acute hyperactive delirium due to multiple etiologies F05 Alcohol intoxication delirium F10.121 Acute respiratory failure J96.00 Polysubstance abuse F19.10 Bilateral pneumonia J18.9 Pulmonary embolism I26.99
[2022-01-09 15:06] VITALS: BP 114/78; PULSE 75; RESP 17; TEMP 36.4; O2SAT 98
[2022-01-12 00:28] LABS: Trichomonas Vaginalis TMA Male Not Detected (Not Detected)
== END 2022-01-09 15:35 | disposition home or self-care (01) | DRG 896 ==
LOC: ER 20:22 → NP 21:03 → ICU 23:49 → NP 01-06 05:47 → ICU 01-06 08:49 → NP 01-08 17:05
PROVIDERS: Family Medicine; Student in an Organized Health Care Education/Training Program; Admitting Provider Psychiatry & Neurology Psychiatry; Emergency Provider Emergency Medicine; PCP Nurse Practitioner Adult Health; Visit Provider Psychiatry & Neurology Psychiatry
DX: F10.221 Alcohol dependence with intoxication delirium (principal); I26.99 Other pulmonary embolism without acute cor pulmonale; J96.01 Acute respiratory failure with hypoxia; J18.9 Pneumonia, unspecified organism; R45.851 Suicidal ideations; M62.82 Rhabdomyolysis; F15.121 Other stimulant abuse with intoxication delirium; T41.295A Adverse effect of other general anesthetics, initial encounter; Y90.6 Blood alcohol level of 120-199 mg/100 ml; S00.03XA Contusion of scalp, initial encounter; W18.30XA Fall on same level, unspecified, initial encounter; Y92.538 Other ambulatory health services establishments as the place of occurrence of the external cause; F12.10 Cannabis abuse, uncomplicated; F17.200 Nicotine dependence, unspecified, uncomplicated; Z63.0 Problems in relationship with spouse or partner; F32.A Depression, unspecified; E86.0 Dehydration; F43.25 Adjustment disorder with mixed disturbance of emotions and conduct
CPT/HCPCS: 36415; 36416; 36600; 51702; 70450; 71045; 71275; 74018; 76705; 80053; 80306; 80307; 81003; 82550; 82803; 82962; 83605; 83690; 83735; 83880; 84100; 84145; 85025; 85049; 85378; 85610; 85651; 85730; 86140; 86592; 86705; 86706; 86709; 86803; 87040; 87070; 87086; 87205; 87340; 87426; 87491; 87591; 87641; 87661; 87806; 93005; 93306; 93970; 94002; 94003; 94799; 96365; 96367; 96372; 97150; 97165; 99291; J1644; J1650; J1940; J2543; J2704; J3010; J3370; J3486; J3490; J7030; J7050; Q9967

== ENCOUNTER → 2022-01-13 14:11 | Outpatient (BNVA) | payer MEDICAID, SELFPAY | PROVIDERS: Visit Provider Nurse Practitioner Psychiatric/Mental Health | DX: Z03.89 Encounter for observation for other suspected diseases and conditions ruled out (principal) | CPT/HCPCS: 80053 ==

== ENCOUNTER 2022-01-16 12:14 | Outpatient (CLI) | payer MEDICAID, SELFPAY ==
[2022-01-16 12:50] LABS: Basophils # 0.1 10^3/uL (0.0-0.1); Basophils % 0.7 %; Eosinophils # 0.3 10^3/uL (0.0-0.8); Eosinophils % 2.3 %; Hematocrit 47.2 % (42.0-52.0); Hemoglobin 15.5 g/dL (11.7-16.6); Lymphocytes % 28.5 %; Mean Corpuscular HGB Conc 32.8 g/dL (30.0-36.0); Mean Corpuscular Hemoglobin 31.6 pg (28.0-34.0); Mean Corpuscular Volume 96.1 fl (80-94); Mean Platelet Volume 8.3 fL (7.4-10.4); Monocytes # 0.8 10^3/uL (0.2-0.9); Monocytes % 7.8 %; Neutrophils # 6.31 10^3/uL (1.8-7.7); Neutrophils % 59.1 %; Nucleated Red Blood Cells % 0 %; Platelet Count 379 10^3/cmm (130-400); Red Blood Count 4.91 10^6/uL (4.1-5.3); Red Cell Distribution Width 13.2 % (12.1-15.1); White Blood Count 10.7 10^3/uL (4.0-10.0)
[2022-01-16 13:19] LABS: Alanine Aminotransferase 113 U/L (0-41); Albumin Level 4.8 g/dL (3.5-5.2); Alkaline Phosphatase 151 IU/L (40-130); Anion Gap 11.9 (5-19); Aspartate Amino Transferase 57 U/L (0-40); Blood Urea Nitrogen 11 mg/dL (6-20); Calcium 9.3 mg/dL (8.5-10.5); Carbon Dioxide 30 mmol/L (22-29); Chloride 100 mmol/L (98-107); Creatine Phosphokinase 119 U/L (39-308); Globulin 2.7 g/dL (1.3-4.6); Glucose 93 mg/dL (65-115); Osmolality Calculated 283 mOsm/kg (285-295); Potassium 4.9 mmol/L (3.5-5.1); Sodium 137 mmol/L (136-145); Total Bilirubin 0.2 mg/dL (0.15-1.2); Total Protein 7.5 g/dL (6.6-8.7)
== END 2022-01-16 12:15 | disposition home or self-care (01) ==
PROVIDERS: PCP Family Medicine; Visit Provider Family Medicine
DX: I26.99 Other pulmonary embolism without acute cor pulmonale (principal); R74.01 Elevation of levels of liver transaminase levels; M62.82 Rhabdomyolysis
CPT/HCPCS: 36415; 80053; 82550; 85025

== ENCOUNTER → 2022-02-25 09:45 | Outpatient (BNVA) | payer OTHER, SELFPAY | PROVIDERS: PCP Family Medicine; Visit Provider Nurse Practitioner Psychiatric/Mental Health | DX: Z79.899 Other long term (current) drug therapy (principal) | CPT/HCPCS: 80053 ==

== ENCOUNTER → 2022-03-25 10:22 | Outpatient (BNVA) | payer OTHER, SELFPAY | PROVIDERS: PCP Family Medicine; Visit Provider Nurse Practitioner Psychiatric/Mental Health | DX: Z79.899 Other long term (current) drug therapy (principal) | CPT/HCPCS: 80053 ==

== ENCOUNTER → 2022-04-09 09:39 | Outpatient (BNVA) | payer MEDICAID, SELFPAY | PROVIDERS: PCP Family Medicine; Visit Provider Internal Medicine Critical Care Medicine | DX: J18.9 Pneumonia, unspecified organism (principal) | CPT/HCPCS: 71046 ==

== ENCOUNTER 2023-01-18 18:22 | Emergency (ER) | payer MEDICAID, SELFPAY ==
[2023-01-18 18:27] VITALS: BP 143/83; PULSE 122; RESP 14; TEMP 37.1; O2SAT 97; BMI 28.3
--- NOTE | 2023-01-18 18:44 | ED_ITS ---
HPI - Male Genitourinary General: Chief complaint: Urogenital-Male Stated complaint: weakness, abdomen pain Time Seen by Provider: 01/18/23 18:39 History of Present Illness: 32yo male presents with right-sided flank and lower abdominal pain that has been intermittent since last night. Patient states the pain is sharp in nature and he does have some difficulty beginning the flow of urine. Patient reports he has had this previously about a year ago when he had kidney stones. He reports he is able to pass urine with no difficulty. He denies fever, chills, rash/lesions to the penis/testicles, penile drip, concern for sexually transmitted infection Review of Systems Const: Denies: fever(s), chills or body aches Card: Denies: chest pain Resp: Denies: chest congestion GI: Reports: abdominal pain (right lower, radiates to groin) : Reports: flank pain (right) [facility] ED PFSH: Medical History Alcohol use disorder, severe, dependence Back pain Nephrolithiasis Other stimulant dependence, uncomplicated Methamphetamines Psychiatric care Surgical History No pertinent past surgical history Social History Smoking and tobacco status: current every day smoker cigarettes Packs smoked per day: 0.5 Years cigarettes smoked: 15 [ Other cigarette details: started age 17, 2ppd x 15 year Hx ] Alcohol intake: former Year of sobriety/quit date alcohol: 2021 Marital status: Single Current occupational status: unemployed Physical Exam Const: COMMON NORMALS: no acute distress and patient oriented x3 GENERAL APPEARANCE: cooperative and comfortable OTHER: Patient is sitting upright on the stretcher in no acute distress. He is able to give history and make position changes with no difficulty. No family is at bedside HENMT: COMMON NORMALS: normocephalic HEAD & SCALP: normocephalic Neck/C-Spine: COMMON NORMALS: full ROM Chest: CHEST: Yes Symmetrical chest wall rise Resp: COMMON NORMALS: normal respiratory effort Cardio: COMMON NORMALS: regular rate and regular rhythm RATE: regular rate RHYTHM: regular rhythm GI: PALPATION: Yes Tenderness to palpation present (GI) Details: RLQ, No Guarding due to palpation present (GI), No Rigid due to palpation and No Rebound tenderness present : BLADDER/KIDNEY EXAM: Yes CVA tenderness on the right Back/Pelvis: GENERAL BACK: Yes CVA tenderness Extremity: NARRATIVE EXTREMITY EXAM: MAEW Neuro: COMMON NORMALS: patient oriented x3 Psych: COMMON NORMALS: cooperative Skin: COMMON NORMALS: no rashes or lesions noted GENERAL SKIN EXAM: no rashes or lesions noted Course Vital Signs: Vital signs: Vital Signs Temperature 98.7 F 01/18/23 18:27 Pulse Rate 122 H 01/18/23 18:27 Respiratory Rate 14 01/18/23 18:27 Blood Pressure 143/83 01/18/23 18:27 Pulse Oximetry 97 01/18/23 18:27 Oxygen Delivery Me thod Room Air 01/18/23 18:27 MDM - Male Medical Decision Making 32yo male here with right lower quadrant and right flank intermittent sharp pain that started last night and has worsened today. Patient reports that the pain does radiate into the right groin and he has concerns for kidney stones. He denies any fever, chills, penile drip, rash/lesions to the genitals, concern for sexually transmitted infection. Patient is nontoxic in appearance. Vital signs are stable. White blood cell count is mildly elevated at 13.7. BUN and creatinine are noted to be in the normal range. Liver enzymes are noted to be very mildly elevated. CRP is in the normal range. UA is grossly unremarkable. CT abdomen pelvis with no evidence of acute intra-abdominal or pelvic pathology. Discussed findings with patient. Patient did receive 1 L normal saline bolus while in the emergency department as well as IV ketorolac. He reported improvement in his symptoms. Discussed with patient that he may have passed a stone prior to imaging. Encourage patient to continue to monitor his symptoms and follow-up with primary care. Recommend he return to the emergency department if any rapid worsening symptoms and as needed. Lab Data 01/18/23 18:53 01/18/23 18:53 Radiology Impressions Abdomen/Pelvis CT 01/18/23 18:51 IMPRESSION: 1. Limited noncontrast examination without CT evidence of acute intra-abdominal or pelvic pathology. 2. Additional findings, as above. Laboratory Results WBC 13.7 10^3/uL (4.0-10.0) H 01/18/23 18:53 RBC 5.20 10^6/uL (4.1-5.3) 01/18/23 18:53 Hgb 16.2 g/dL (11.7-16.6) 01/18/23 18:53 Hct 47.4 % (42.0-52.0) 01/18/23 18:53 MCV 91.2 fl (80-94) 01/18/23 18:53 MCH 31.2 pg (28.0-34.0) 01/18/23 18:53 MCHC 34.2 g/dL (30.0-36.0) 01/18/23 18:53 RDW 12.4 % (12.1-15.1) 01/18/23 18:53 Plt Count 364 10^3/cmm (130-400) 01/18/23 18:53 MPV 8.4 fL (7.4-10.4) 01/18/23 18:53 Neut % (Auto) 72.9 % 01/18/23 18:53 Lymph % (Auto) 19.4 % 01/18/23 18:53 Jerauld % (Auto) 6.0 % 01/18/23 18:53 Eos % (Auto) 0.5 % 01/18/23 18:53 Baso % (Auto) 0.4 % 01/18/23 18:53 Neut # (Auto) 9.96 10^3/uL (1.8-7.7) H 01/18/23 18:53 Lymph # (Auto) 2.7 10^3/uL (0.8-4.8) 01/18/23 18:53 Jerauld # (Auto) 0.8 10^3/uL (0.2-0.9) 01/18/23 18:53 Eos # (Auto) 0.1 10^3/uL (0.0-0.8) 01/18/23 18:53 Baso # (Auto) 0.1 10^3/uL (0.0-0.1) 01/18/23 18:53 Nucleated RBC % (auto) 0 % 01/18/23 18:53 Nucleated RBCs # 0.0 /100WBC 01/18/23 18:53 Sodium 142 mmol/L (136-145) 01/18/23 18:53 Potassium 4.4 mmol/L (3.5-5.1) 01/18/23 18:53 Chloride 103 mmol/L (98-107) 01/18/23 18:53 Carbon Dioxide 27 mmol/L (22-29) 01/18/23 18:53 Anion Gap 16.4 (5-19) 01/18/23 18:53 BUN 10 mg/dL (6-20) 01/18/23 18:53 Creatinine 1.0 mg/dL (0.7-1.2) 01/18/23 18:53 GFR Calculation 86.1 mL/min (90-130) L 01/18/23 18:53 Glucose 90 mg/dL (65-115) 01/18/23 18:53 Calculated Osmolality 293 mOsm/kg (285-295) 01/18/23 18:53 Calcium 9.2 mg/dL (8.5-10.5) 01/18/23 18:53 Total Bilirubin 0.2 mg/dL (0.15-1.2) 01/18/23 18:53 AST 49 U/L (0-40) H 01/18/23 18:53 ALT 96 U/L (0-41) H 01/18/23 18:53 Alkaline Phosphatase 158 U/L (40-130) H 01/18/23 18:53 C-Reactive Protein 3.0 mg/L (0.0-4.9) 01/18/23 18:53 Total Protein 7.7 g/dL (6.6-8.7) 01/18/23 18:53 Albumin 4.7 g/dL (3.5-5.2) 01/18/23 18:53 Globulin 3.0 g/dL (1.3-4.6) 01/18/23 18:53 Urine Color Dark yellow (Yellow) 01/18/23 19:14 Urine Appearance Clear (CLEAR) 01/18/23 19:14 Urine pH 6.5 (5-7) 01/18/23 19:14 Ur Specific Alger 1.015 (1.005-1.030) 01/18/23 19:14 Urine Protein Neg (Negative) 01/18/23 19:14 Urine Glucose (UA) Norm (Normal) 01/18/23 19:14 Urine Ketones Negative (Negative) 01/18/23 19:14 Urine Blood Neg (Negative) 01/18/23 19:14 Urine Nitrate Negative (Negative) 01/18/23 19:14 Urine Bilirubin Neg (Negative) 01/18/23 19:14 Urine Urobilinogen Norm mg/dL (Negative) 01/18/23 19:14 Ur Leukocyte Esterase Negative (Negative) 01/18/23 19:14 Discharge Plan Discharge Patient Disposition: Home Clinical Impression: Acute right flank pain, Abdominal pain Condition: Stable Prescriptions: No Action hydroxyzine HCl 25 mg tablet 25 mg PO BID PRN (Reason: anxiety) Qty: 30 2RF Rx Instructions: Take one tablet twice per day as needed for anxiety trazodone 150 mg tablet 150 mg PO BEDTIME PRN (Reason: insomnia) Qty: 30 3RF Rx Instructions: Take one tablet at bedtime as needed for sleep naltrexone 50 mg tablet 50 mg PO .morning Qty: 30 3RF Hold Instructions: Doctor's Order Rx Instructions: Take one tablet every morning bupropion HCl [Wellbutrin SR] 100 mg tablet sustained-release 12 hr 100 mg PO QAM Qty: 30 3RF Rx Instructions: Take one tablet every morning nicotine (polacrilex) 2 mg gum 2 mg buccal Q2H PRN (Reason: nicotine cravings) Qty: 50 3RF albuterol sulfate [Ventolin HFA] 90 mcg/actuation HFA aerosol inhaler 1 inh inhalation QID PRN (Reason: shortness of breath or wheezing) Qty: 8.5 3RF nicotine 21-14-7 mg/24 hr patch, TD daily, sequential See Rx Instructions transdermal .COMPLEX Qty: 56 0RF Rx Instructions: apply 1-21 mg NICOTINE PATCH daily for 28 days; follow with 1-14 mg PATCH daily for 14 days, then 1-7mg PATCH daily for 14 days transdermal Vitamin B-1 (mononitrate) 100 mg Tablet 100 mg PO DAILY 30 Days Qty: 30 1RF Discharge Orders: Discharge ED (Routine); Ordered 01/18/23 Ordered By: Kwame Dee Referrals: Charity Riggs DO [Primary Care Provider] - Discharge Diet: Usual diet Discharge Activity: Resume usual activity Patient Instructions: Abdominal Pain (ED), Flank Pain (ED) Coding Level of Care Code ED Cavity Pump Operator for Maryan Wilson
--- NOTE | 2023-01-18 18:51 | CTR_ITS ---
PROCEDURE INFORMATION: Exam: CT Abdomen And Pelvis Without Contrast Exam date and time: 01/18/2023 7:07 PM Age: 32 years old Clinical indication: Abdominal pain; Flank; Right; Additional info: R flank pain, h/o stones TECHNIQUE: Imaging protocol: Computed tomography of the abdomen and pelvis without contrast. Axial, coronal and sagittal reformatted images were created and reviewed. Radiation optimization: All CT scans at this facility use at least one of these dose optimization techniques: automated exposure control; mA and/or kV adjustment per patient size (includes targeted exams where dose is matched to clinical indication); or iterative reconstruction. REPORTING DATA: Count of CT and Cardiac NM exams in prior 12 months: This patient has received 0 known CTs and 0 known cardiac nuclear medicine studies in the 12 months prior to the current study. COMPARISON: CT abdomen pelvis wo con [id number] 11/20/2021 11:30 PM RADIATION DOSE METRICS: Total DLP (mGy-cm): 554.02 FINDINGS: Diaphragm: Small hiatal hernia. Liver: Unremarkable. Gallbladder and bile ducts: No radiodense gallstones. No biliary ductal dilatation. Pancreas: Unremarkable. Spleen: Unremarkable. Adrenal glands: Normal. No mass. Kidneys and ureters: No mass. No radiodense calculi. No hydronephrosis. Stomach and bowel: No bowel wall thickening. No obstruction. No pneumatosis. Appendix: Normal. Intraperitoneal space: No free fluid. No organized fluid collection. No free air. Vasculature: Unremarkable. No aneurysm. Lymph nodes: No pathologically enlarged lymph nodes. Urinary bladder: Unremarkable as visualized. Reproductive: Unremarkable. Bones/joints: No acute osseous abnormality. Osteopenia. Mild degenerative changes. Soft tissues: Unremarkable. CT/CT kidney stone [id number] IMPRESSION: 1. Limited noncontrast examination without CT evidence of acute intra-abdominal or pelvic pathology. 2. Additional findings, as above.
[2023-01-18 19:03] LABS: Basophils # 0.1 10^3/uL (0.0-0.1); Basophils % 0.4 %; Eosinophils # 0.1 10^3/uL (0.0-0.8); Eosinophils % 0.5 %; Hematocrit 47.4 % (42.0-52.0); Hemoglobin 16.2 g/dL (11.7-16.6); Lymphocytes # 2.7 10^3/uL (0.8-4.8); Lymphocytes % 19.4 %; Mean Corpuscular HGB Conc 34.2 g/dL (30.0-36.0); Mean Corpuscular Hemoglobin 31.2 pg (28.0-34.0); Mean Corpuscular Volume 91.2 fl (80-94); Mean Platelet Volume 8.4 fL (7.4-10.4); Monocytes # 0.8 10^3/uL (0.2-0.9); Neutrophils # 9.96 10^3/uL (1.8-7.7); Neutrophils % 72.9 %; Nucleated Red Blood Cells % 0 %; Platelet Count 364 10^3/cmm (130-400); Red Cell Distribution Width 12.4 % (12.1-15.1); White Blood Count 13.7 10^3/uL (4.0-10.0)
[2023-01-18] MEDS: sodium chloride 0.9% 1,000 ML 999 ML IV (19:15)
[2023-01-18 19:24] LABS: Alanine Aminotransferase 96 U/L (0-41); Albumin Level 4.7 g/dL (3.5-5.2); Alkaline Phosphatase 158 U/L (40-130); Anion Gap 16.4 (5-19); Blood Urea Nitrogen 10 mg/dL (6-20); Calcium 9.2 mg/dL (8.5-10.5); Carbon Dioxide 27 mmol/L (22-29); Chloride 103 mmol/L (98-107); Glomerular Filtration Rate 86.1 mL/min (90-130); Glucose 90 mg/dL (65-115); Osmolality Calculated 293 mOsm/kg (285-295); Potassium 4.4 mmol/L (3.5-5.1); Sodium 142 mmol/L (136-145); Total Bilirubin 0.2 mg/dL (0.15-1.2); Total Protein 7.7 g/dL (6.6-8.7)
[2023-01-18 19:26] LABS: Add Urine Microscopic? NO; Charge for UA Resulting for Rev
[2023-01-18 19:30] VITALS: BP 120/78; PULSE 115; O2SAT 98
[2023-01-18 19:32] LABS: Aspartate Amino Transferase 49 U/L (0-40)
[2023-01-18 19:45] LABS: Bilirubin Urine Neg (Negative); Blood Urine Neg (Negative); Glucose Urine UA Norm (Normal); Ketones Urine Negative (Negative); Leukocyte Esterase Urine Negative (Negative); Nitrate Urine Negative (Negative); Protein Urine Neg (Negative); Specific Gravity, Urine 1.015 (1.005-1.030); Urine Appearance Clear (CLEAR); Urine Color Dark Yellow (Yellow); Urobilinogen Urine Norm (Negative); pH Urine 6.5 (5-7)
[2023-01-18 20:00] VITALS: BP 132/83; PULSE 110; O2SAT 100
[2023-01-18 20:30] VITALS: BP 124/83; PULSE 113; O2SAT 98
[2023-01-18 21:00] VITALS: BP 120/86; PULSE 100; O2SAT 99
[2023-01-18] MEDS: ketorolac 30 mg/mL INJ 15 MG IVP (21:06)
[2023-01-18 21:17] VITALS: BP 142/89; PULSE 116; RESP 18; O2SAT 98
== END 2023-01-18 21:19 | disposition home or self-care (01) ==
PROVIDERS: Nurse Practitioner; Emergency Provider Emergency Medicine; PCP Family Medicine
DX: R10.31 Right lower quadrant pain (principal); F17.210 Nicotine dependence, cigarettes, uncomplicated; Z79.899 Other long term (current) drug therapy
CPT/HCPCS: 12345; 74176; 80053; 81003; 85025; 86140; 96361; 96374; 99285; J1885; J7030

== ENCOUNTER 2024-06-25 22:28 | Emergency (ER) | payer MEDICAID, SELFPAY ==
[2024-06-25 22:30] VITALS: BP 164/96; PULSE 102; RESP 16; TEMP 36.9; O2SAT 97; BMI 29.1
[2024-06-25 22:44] VITALS: BP 155/107; PULSE 101; RESP 18; O2SAT 95
--- NOTE | 2024-06-25 23:49 | ED_ITS ---
HPI - Dental/Oral General: Chief complaint: Dental/Oral Stated complaint: Tried to Pull Tooth\Pain Time Seen by Provider: 06/25/24 22:41 History of Present Illness: 34-year-old male with left lower lateral incisor pain for the past couple of days. Pain is steadily increased. The tooth was loose, so he tied a string around it at home, and attempted extraction by slamming a door. Pain increased at that point. The extraction was obviously unsuccessful. No significant bleeding. Some swelling. No fever. No facial swelling Related Data Previous Rx's Medication Instructions Recorded thiamine mononitrate (vit B1) 100 100 mg PO DAILY 30 days #30 tabs 01/09/22 mg tablet (Vitamin B-1 (mononitrate)) bupropion HCl 100 mg tablet,12 hr 100 mg PO QAM #30 tabs 05/04/22 sustained-release (Wellbutrin SR) hydroxyzine HCl 25 mg tablet 25 mg PO BID PRN anxiety #30 tabs 05/04/22 naltrexone 50 mg tablet 50 mg PO .morning #30 tabs 05/04/22 trazodone 150 mg tablet 150 mg PO BEDTIME PRN insomnia #30 05/04/22 tabs albuterol sulfate 90 mcg/actuation 1 inh inhalation QID PRN shortness 06/22/22 aerosol inhaler (Ventolin HFA) of breath or wheezing #8.5 grams nicotine (polacrilex) 2 mg gum 2 mg buccal Q2H PRN nicotine 06/22/22 cravings #50 ea nicotine See Rx Instructions transdermal 06/22/22 21mg/24hr-14mg/24hr-7mg/24hr daily .COMPLEX #56 patches transderm patches,sequentl amoxicillin 875 mg-potassium 1 tab PO BID #20 tabs 06/25/24 clavulanate 125 mg tablet ketorolac 10 mg tablet 10 mg PO TID PRN pain #10 tabs 06/25/24 Allergies Allergy/AdvReac Type Severity Reaction Status Date / Time No Known Allergies Allergy Verified 06/25/24 22:31 [facility] ED PFSH: Medical History Alcohol use disorder, severe, dependence Other stimulant dependence, uncomplicated Methamphetamines Back pain Nephrolithiasis Surgical History No pertinent past surgical history Social History Smoking and tobacco/nicotine status: current every day tobacco/nicotine user cigarettes Packs smoked per day: 0.5 Years cigarettes smoked: 15 [ Other cigarette details: started age 17, 2ppd x 15 year Hx ] Alcohol intake: former Year of sobriety/quit date alcohol: 2021 Marital status: Single Current occupational status: unemployed Physical Exam Const: COMMON NORMALS: no acute distress GENERAL APPEARANCE: cooperative; not ill appearing and not frail appearing HENMT: COMMON NORMALS: normocephalic, atraumatic and Normal external nose present HEAD & SCALP: normocephalic and atraumatic FACE & SINUS: normal facial exam and face symmetric NOSE: Normal external nose present TEETH & GINGIVA: Yes abnormal tooth and associated gingiva OTHER: Lower left lateral incisor loosening, tenderness, gingival swelling. No drainage. No bleeding. Eye: COMMON NORMALS: Equal, round and reactive pupils present and EOMs intact bilaterally PUPIL: Yes Equal, round and reactive pupils present Neck/C-Spine: GENERAL: Yes trachea midline Chest: CHEST: Yes Symmetrical chest wall rise Resp: COMMON NORMALS: normal respiratory effort, No retractions, No use of accessory muscles and clear to auscultation bilaterally AUSCULTATION: clear to auscultation bilaterally Cardio: COMMON NORMALS: regular rate and regular rhythm RATE: regular rate RHYTHM: regular rhythm GI: COMMON NORMALS: Normal to inspection, nondistended, normoactive bowel sounds present Extremity: COMMON NORMALS: no pedal edema Neuro: JADON COMA SCALE: document GCS findings [place] coma scale eye opening: Spontaneous Jadon coma scale verbal response: Orientated Jadon coma scale motor response: Obey commands [place] coma scale total score: 15 SENSORY EXAM: Yes extremities (intact) Psych: COMMON NORMALS: speech normal SPEECH: Yes normal speech Skin: COMMON NORMALS: no rashes or lesions noted GENERAL SKIN EXAM: no rashes or lesions noted Course Vital Signs: Vital signs: Vital Signs Temperature 98.4 F 06/25/24 22:30 Pulse Rate 92 06/26/24 00:04 Respiratory Rate 16 06/26/24 00:04 Blood Pressure 155/107 06/26/24 00:04 Pulse Oximetry 99 06/26/24 00:04 Oxygen Delivery Me thod Room Air 06/25/24 22:44 MDM - Dental/Oral Medical Decision Making Likely tooth abscess with loosening. He was given Toradol, Percocet, and will be given antibiotics. He was encouraged to seek dental care as soon as possible. All radiology interpretation(s) finalized by discharge Discharge Plan Discharge Patient Disposition: Home Clinical Impression: Dental abscess Condition: Stable Prescriptions: New amoxicillin-pot clavulanate 875-125 mg tablet 1 tab PO BID Qty: 20 0RF ketorolac 10 mg tablet 10 mg PO TID PRN (Reason: pain) Qty: 10 0RF No Action hydroxyzine HCl 25 mg tablet 25 mg PO BID PRN (Reason: anxiety) Qty: 30 2RF Rx Instructions: Take one tablet twice per day as needed for anxiety trazodone 150 mg tablet 150 mg PO BEDTIME PRN (Reason: insomnia) Qty: 30 3RF Rx Instructions: Take one tablet at bedtime as needed for sleep naltrexone 50 mg tablet 50 mg PO .morning Qty: 30 3RF Hold Instructions: Doctor's Order Rx Instructions: Take one tablet every morning bupropion HCl [Wellbutrin SR] 100 mg tablet sustained-release 12 hr 100 mg PO QAM Qty: 30 3RF Rx Instructions: Take one tablet every morning nicotine (polacrilex) 2 mg gum 2 mg buccal Q2H PRN (Reason: nicotine cravings) Qty: 50 3RF albuterol sulfate [Ventolin HFA] 90 mcg/actuation HFA aerosol inhaler 1 inh inhalation QID PRN (Reason: shortness of breath or wheezing) Qty: 8.5 3RF nicotine 21-14-7 mg/24 hr patch, TD daily, sequential See Rx Instructions transdermal .COMPLEX Qty: 56 0RF Rx Instructions: apply 1-21 mg NICOTINE PATCH daily for 28 days; follow with 1-14 mg PATCH daily for 14 days, then 1-7mg PATCH daily for 14 days transdermal Vitamin B-1 (mononitrate) 100 mg Tablet 100 mg PO DAILY 30 Days Qty: 30 1RF Discharge Orders: Discharge ED (Routine); Ordered 06/25/24 Ordered By: Tyrone Willis Patient Instructions: Dental Abscess (ED), Acute Dental Trauma (ED), Opioid Safety, Pain Management Activity Restrictions/Additional Instructions: Antibiotics as directed. Pain medication as instructed. Call your dentist in the morning for an appointment regarding your tooth. Return for fever despite antibiotics, vomiting, shortness of breath or facial swelling, other concerning symptoms. Coding Level of Care Code ED Oxygen Equipment Preparer for Maryan Wilson
[2024-06-26] MEDS: oxyCODONE-APAP 5-325 mg Tablet 2 TAB PO
[2024-06-26] MEDS: lidocaine 2% viscous 15 mL UDC 5 ML MUCOUS MEM (00:01)
[2024-06-26] MEDS: ketorolac 60 mg/2 mL INJ IM (00:01)
[2024-06-26 00:04] VITALS: BP 155/107; PULSE 92; RESP 16; O2SAT 99
== END 2024-06-26 00:06 | disposition home or self-care (01) ==
PROVIDERS: Emergency Provider Emergency Medicine
DX: K04.7 Periapical abscess without sinus (principal); F17.210 Nicotine dependence, cigarettes, uncomplicated
CPT/HCPCS: 96372; 99284; J1885

== ENCOUNTER 2025-03-24 09:59 | Emergency (ER) | payer MEDICAID, SELFPAY ==
[2025-03-24 10:05] VITALS: BP 159/78; PULSE 81; RESP 18; TEMP 36.4; O2SAT 100
--- OUTSIDE RECORDS SUMMARY | 2025-03-24 10:06 | XMS_ITS | Clinical Summary ---
Author Organization [facility] Address [address] [place] [address] Phone Care Team Providers Care Collection Systems Technician Name Role Phone Unavailable Primary Care Provider Unavailabl e Social History Tobacco Use Types Packs/Day Years Used Date Smoking Tobacco: Never Assessed Sex and Gender Information Value Date Recorded Sex Assigned at Not on file Legal Sex Male 2:32 AM CDT Gender Identity Not on file Sexual Orientation Not on file Plan of Treatment Health Maintenance Due Date Last Done Comments DTAP/TDAP/TD VACCINES (1 - Tdap) 2008 HEPATITIS B VACCINES (1 of 3 - 19+ 3-dose series) 02/13 HPV VACCINES (1 - 3-dose SCDM series) 2016 INFLUENZA VACCINE (#1) 2025
--- OUTSIDE RECORDS SUMMARY | 2025-03-24 10:06 | XMS_ITS | Data Portability ---
Author Organization [facility], [facility], [facility] Address [address] [address] Assessment No assessment recorded. Plan of Treatment Reminders Order Date Submit Date Provider Last Modified By Organization Details Last Modified Time Details Appointments None record ed. Lab None record ed. Referral None record ed. Procedures None record ed. Surgeries None record ed. Imaging None record ed. Medication Orders None record ed. Patient TargetsNo targets recorded. Patient InstructionsNo instructions recorded. Reason for Referral None Reported. Procedures Surgical History Date Name Laterality Status Provider Name and Address Organization Details Recorded Time 4 Laceration Repair completed [place] [facility] [address] [place] [address], [phone], [facility], [facility] 06/27/2023 17:25:31 Imaging Results None recorded. Procedure Notes None recorded. Medical Equipment None Reported. Medications Name Sig Start Date Stop Date Status Note LastModified by Organization Details LastModified Time trazodone 150 mg tablet TAKE 1 TABLET BY MOUTH EVERY DAY AT BEDTIME NEEDED FOR SLEEP active Not Available Not Available No t Available Vitals Date Recorded Body height Body mass index (BMI) Body weight Oxygen saturation Oxygen saturation in Arterial blood by Pulse oximetry Heart rate Respiratory rate Body temperature Provider Name and Address Organization Details Last Updated DateTime 4 172.72 cm 27.4 kg/m2 07580.6 3 g 98 % 98 % 78 /min 19 /min 97.8 [degF] LEVI SIERRA [facility], [facility] 4 16:06:19 Social History None recorded. Functional Status None recorded. Mental Status None recorded. Family History Nothing Reported. Medical History No medical history recorded. Past Encounters Encounter ID Performer Location Encounter Start Date Encounter Closed Date Diagnosis/Indication Diagnosis SNOMED-CT Code Diagnosis ICD10 Code Diagnosis IMO Codes Diagnosis Note [id number] [facility] H[facility] [place] ([facility]) [address] [place] [address] 06/27/2023 16:00:53 06/28/2023 08:46:35 Laceration of finger of left hand [id number] S61.211A #9 sutures were placed, simple uninterrup amish. No x-ray was performed today, as no radiology ct technologist was present and laceration was superficia l, involving only the epidermis layer. Discussed signs of infection including erythema, streaking, green/yell ow drainage, and fever. Encouraged patient to put triple antibiotic ointment on laceration and keep dressing on for 24 hours. Patient will return 07/07/23 for suture removal. If patient develops any signs of infection, will return sooner. Patient states he is UTD on tetanus. Will follow up for suture removal in 7-10 days, sooner if needed. Health Concerns Section Related Observation LastModified by Organization Detai ls LastModified Time None Recorded Concern Status LastModified by Organization Details LastModified Time None Recorded Advance Directives Directive None Recorded Payers Insurance Date Sequence Insurance Name Policy Number Policy Collins Covered Member ID Collins Member ID Guarantor Name 06/27/2024 [facility] (MEDICAID HMO) Alden Urena [id number] Alden Urena 06/27/2023 1 *SELF PAY* Teetee Urena 08/07/2024 2 [facility] (MEDICAID HMO) Alden Urena [id number] Alden Urena 08/07/2024 1 KEL - [facility]IDADR FROM [facility] Alden Urena [id number] Alden Urena Notes Date Note Type Note Provider Name and Address Organization Details Recorded Time 06/27/2023 text/html LacerationReport ed by PatientHPIFor quality, patient reportspainfulandbleedi ng. For type of trauma, patient reportslaceration. For location, patient reportshands. For severity, patient reportsstable.ROS as noted in the HPI Patient is a 33 year old male who presents to the walk in clinic today for a laceration to the left hand. Patient states he was using a knife to sharpen a pencil and the knife slipped and cut his left thumb. Patient states this happened approximately 3 hours ago. Patient states he is UTD on his tetanus vaccine. Patient is right hand dominant. Bleeding is controlled at this time. ALIYAH ALBRIGHT, FRANCESCO-C [address] [place] [address], [phone], [facility], Ac 06/27/2023 23:21:56
--- OUTSIDE RECORDS SUMMARY | 2025-03-24 10:06 | XMS_ITS | Clinical Summary ---
Author Organization [facility] Address [address] [place]: Epic Prelude ADT YOSSI SOLO [address] Care Team Providers Care Slip Cover Estimator Name Role Phone Unavailable Primary Care Provider Unavailabl e Allergies No known active allergies Medications HYDROcodone-javier taminophen (NORCO) 5-325 mg tabletIndicatio ns:Pain due to dental caries Take 1 Tablet by mouth every 6 hours as needed for Pain, Moderate. Max Daily Amount: 4 Tablets 4 Tablet 11/08/2024 Active HYDROcodone-javier taminophen (NORCO) 5-325 mg tabletIndicatio ns:Pain due to dental caries Take 1 Tablet by mouth every 6 hours as needed for Pain, Moderate. Max Daily Amount: 4 Tablets 12 Tablet 11/08/2024 Active Active Problems Problem Noted Date Diagnosed Date Pain due to dental caries 11/08/2024 Social History Tobacco Use Types Packs/Day Years Used Date Smoking Tobacco: Every Day Cigarettes Smokeless Tobacco: Never Tobacco Cessation:Ready to Q uit: Not Asked; Counseling Given: Not Answered Alcohol Use Standard Drinks/Week Comments Never 0 (1 standard drink = 0.6 oz pur e alcohol) Feeling Safe Answer Date Recorded Are you in a relationship wi th someone who hurts you emotionally and/or physically? 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 Gender Identity Not on file Sexual Orientation Not on file Last Filed Vital Signs Vital Sign Reading Time Taken Comments Blood Pressure 146/100 11/08/2024 10:00 PM CDT Pulse 66 11/08/2024 10:00 PM CDT Temperature 36.4 C (97.5 F) 11/08/2024 8:14 PM CDT Respiratory Rate 18 11/08/2024 10:00 PM CDT Oxygen Saturation 97% 11/08/2024 10:00 PM CDT Inhaled Oxygen Concentration - - Weight 82.4 kg (181 lb 9.6 oz) 11/08/2024 8:14 P M CDT Height 162.6 cm (5' 4 ) 11/08/2024 8:14 PM CDT Body Mass Index 31.17 11/08/2024 8:14 PM CDT Plan of Treatment Health Maintenance Due Date Last Done Comments Pre-Diabetes and Diabetes Screening 1989 DTAP/TDAP/TD VACCINES (1 - Tdap) 2008 HEPATITIS B VACCINES (1 of 3 - 19+ 3-dose series) 02/13 HPV VACCINES (1 - 3-dose SCDM series) 2016 INFLUENZA VACCINE (#1) 2025
[2025-03-24] MEDS: tetracaine 0.5% Op Soln 4 mL Btl 1 DROP EYE-LEFT (10:21)
--- NOTE | 2025-03-24 10:30 | W.ED.EYEPROB ---
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 Related Data Previous Rx's ?Medication ?Instructions ?Recorded thiamine mononitrate (vit B1) 100 100 mg PO DAILY 30 days #30 tabs 01/09/22 mg tablet (Vitamin B-1 (mononitrate)) bupropion HCl 100 mg tablet,12 hr 100 mg PO QAM #30 tabs 05/04/22 sustained-release (Wellbutrin SR) hydroxyzine HCl 25 mg tablet 25 mg PO BID PRN anxiety #30 tabs 05/04/22 naltrexone 50 mg tablet 50 mg PO .morning #30 tabs 05/04/22 trazodone 150 mg tablet 150 mg PO BEDTIME PRN insomnia #30 05/04/22 tabs albuterol sulfate 90 mcg/actuation 1 inh inhalation QID PRN shortness 06/22/22 aerosol inhaler (Ventolin HFA) of breath or wheezing #8.5 grams nicotine (polacrilex) 2 mg gum 2 mg buccal Q2H PRN nicotine 06/22/22 cravings #50 ea nicotine See Rx Instructions transdermal 06/22/22 21mg/24hr-14mg/24hr-7mg/24hr daily .COMPLEX #56 patches transderm patches,sequentl amoxicillin 875 mg-potassium 1 tab PO BID #20 tabs 06/25/24 clavulanate 125 mg tablet ketorolac 10 mg tablet 10 mg PO TID PRN pain #10 tabs 06/25/24 Allergies Allergy/AdvReac Type Severity Reaction Status Date / Time No Known Allergies Allergy Verified 06/25/24 22:31 [facility] ED PFS: Medical History Alcohol use disorder, severe, dependence Other stimulant dependence, uncomplicated Methamphetamines Back pain Nephrolithiasis Surgical History No pertinent past surgical history Social History Smoking and tobacco/nicotine status: current every day tobacco/nicotine user cigarettes Packs smoked per day: 0.5 Years cigarettes smoked: 15 [ Other cigarette details: started age 17, 2ppd x 15 year Hx ] Alcohol intake: former Year of sobriety/quit date alcohol: 2021 Marital status: Single Current occupational status: unemployed Physical Exam Eye: OTHER: Tetracaine applied to the eye gross visualization no foreign bodies under the eyelids there is a small speck of debris embedded in the cornea at the edge of the cornea at the 9 o'clock position. Under fluorescein staining with ultraviolet light no other corneal abrasions or foreign bodies noted Course Vital Signs: Vital signs: Vital Signs Temperature 97.6 F 03/24/25 10:05 Pulse Rate 81 03/24/25 10:05 Respiratory Rate 18 03/24/25 10:05 Blood Pressure 159/78 03/24/25 10:05 Pulse Oximetry 100 03/24/25 10:05 Oxygen Delivery Me thod Room Air 03/24/25 10:05 MDM - Eye Problem Medical Decision Making Embedded piece of metal is at the edge of the cornea concerned about removing his may tear the edge of the cornea and create greater injury. Discussed with ophthalmology on-call they are willing to see patient in the office he will be discharged from here directed to their office patient is aware where it is at. Reviewed findings and recommendations with her he is agreeable to this. No radiology studies performed this visit Discharge Plan Discharge Patient Disposition: Home Clinical Impression: Foreign body of cornea, left Condition: Stable Prescriptions: No Action hydroxyzine HCl 25 mg tablet 25 mg PO BID PRN (Reason: anxiety) Qty: 30 2RF Rx Instructions: Take one tablet twice per day as needed for anxiety trazodone 150 mg tablet 150 mg PO BEDTIME PRN (Reason: insomnia) Qty: 30 3RF Rx Instructions: Take one tablet at bedtime as needed for sleep naltrexone 50 mg tablet 50 mg PO .morning Qty: 30 3RF Rx Instructions: Take one tablet every morning bupropion HCl [Wellbutrin SR] 100 mg tablet sustained-release 12 hr 100 mg PO QAM Qty: 30 3RF Rx Instructions: Take one tablet every morning nicotine (polacrilex) 2 mg gum 2 mg buccal Q2H PRN (Reason: nicotine cravings) Qty: 50 3RF albuterol sulfate [Ventolin HFA] 90 mcg/actuation HFA aerosol inhaler 1 inh inhalation QID PRN (Reason: shortness of breath or wheezing) Qty: 8.5 3RF nicotine 21-14-7 mg/24 hr patch, TD daily, sequential See Rx Instructions transdermal .COMPLEX Qty: 56 0RF Rx Instructions: apply 1-21 mg NICOTINE PATCH daily for 28 days; follow with 1-14 mg PATCH daily for 14 days, then 1-7mg PATCH daily for 14 days transdermal Vitamin B-1 (mononitrate) 100 mg Tablet 100 mg PO DAILY 30 Days Qty: 30 1RF amoxicillin-pot clavulanate 875-125 mg tablet 1 tab PO BID Qty: 20 0RF ketorolac 10 mg tablet 10 mg PO TID PRN (Reason: pain) Qty: 10 0RF Discharge Orders: Discharge ED (Routine); Ordered 03/24/25 Ordered By: Anurag Nixon Referrals: Patrice Pastor [Physician, Opthalmology] Patient Instructions: Opioid Safety, Pain Management, Patient Portal & Delio Instructions Activity Restrictions/Additional Instructions: Thank you for choosing [facility] for your healthcare needs today. It is very important that you follow up as instructed or that you return to the Emergency Department should you have concerns or if your condition changes or worsens in any way. Emergency department visits are focused on emergent conditions, in some cases you may require further evaluation on an outpatient basis. You were seen with complaint of foreign body in your left eye. On exam there is a piece of steel embedded at the very edge of the cornea on the left. I discussed with her on-call weather strip installer. They will see you in their office at noon today (approximately 1 hour after your discharge). Included in the discharge instructions as there address and phone number. (Please note that included in your discharge packet is information concerning opioid safety and pain management. This information is given to all patients were discharged from the ER regardless of their discharge diagnosis or the medicines they usually take or are prescribed.) Print Language: Honduran Coding Level of Care Code ED Car Bracer for Maryan Wilson
== END 2025-03-24 11:15 | disposition home or self-care (01) ==
PROVIDERS: Emergency Provider Family Medicine
DX: T15.02XA Foreign body in cornea, left eye, initial encounter (principal); W44.E9XA Other non-magnetic metal objects entering into or through a natural orifice, initial encounter; F17.210 Nicotine dependence, cigarettes, uncomplicated
CPT/HCPCS: 99283; J9999